=== PATIENT | female | born 1940 | race Caucasian/White ===

== ENCOUNTER 2016-12-17 09:58 | Emergency (ER) | payer MEDICARE, OTHER ==
--- NOTE | 2016-12-17 11:02 | EDM.PDOC ---
[id number]: CHEST PAIN AMB Time Seen by Provider: 12/17/16 10:56 Source of Information: Reports: Patient History Limitations: Reports: No limitations - History of Present Illness INITIAL COMMENTS - FREE TEXT/NARRATIVE: patient complains of gradual onset of dizziness. Onset about 2 days ago. It should be its dizziness 2 pain medication that she started. No vomiting. Decreased appetite because of dizziness. She denies any recent fall. Symptoms are most noticeable with movement. Timing/Duration: Reports: Day(s): Severity: mild Location, General: Reports: head Quality: Reports: Other (generalized discomfort. Main complaint is dizziness) - Related Data Allergies/ADRs: Allergies Allergy/AdvReac Type Severity Reaction Status Date / Time adhesive tape Allergy Cannot Verified 12/17/16 12:37 Remember meperidine HCl [From Demerol] Allergy UNKNOWN Verified 12/17/16 12:37 niacin Allergy UNKNOWN Verified 12/17/16 12:37 peanut Allergy UNKNOWN Verified 12/17/16 12:37 Sulfa (Sulfonamide Allergy Cannot Verified 12/17/16 12:37 Antibiotics) Remember ADHESIVE TAPE Allergy UNKNOWN Uncoded 12/17/16 12:37 SULFA Allergy UNKNOWN Uncoded 12/17/16 12:37 Home Meds: Home Meds Levothyroxine Sodium 1 tab PO DAILY 01/15/14 [History] metFORMIN [Glucophage] 500 mg PO BID 01/15/14 [History] Aspirin [Ecotrin] 81 mg PO DAILY 02/26/14 [History] Lisinopril [Zestril] 20 mg PO DAILY 02/26/14 [History] Loperamide [Imodium] 2 mg PO Q4H PRN #1 box 02/26/14 [Rx] Sertraline [Zoloft] 50 mg PO BEDTIME 02/26/14 [History] Morphine Sulfate [Morphine Sulfate ER] 15 mg PO BID 12/17/16 [History] Vit A/C/E AC/Znox/Cupric Oxide [Eye Vitamin-Minerals Tablet] 1 tab PO ASDIRECTED 12/17/16 [History] oxyCODONE HCl/Acetaminophen [Endocet 10-325 mg Tablet] 1 each PO Q6HR 12/17/16 [ History] Past Medical History HEENT History: Reports: Impaired vision Cardiovascular History: Reports: CAD, Hypertension Other Cardiovascular History: has had strokes Respiratory History: Reports: None Gastrointestinal History: Reports: Chronic diarrhea Genitourinary History: Reports: Urinary incontinence Other Genitourinary History: freguency 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 Musculoskeletal History: Reports: Fracture, Osteoarthritis Other Musculoskeletal History: bursitis Neurological History: Reports: Neuropathy, diabetic Psychiatric History: Reports: Depression Endocrine/Metabolic History: Reports: Hypothyroidism Immunologic History: Reports: None Dermatologic History: Reports: Other (see below) Other Dermatologic History: 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 - Infectious Disease History Infectious Disease History: Reports: Chicken pox, Measles - Past Surgical History GI Surgical History: Reports: Appendectomy Musculoskeletal Surgical History: Reports: Hip replacement (Rt), ORIF Social & Family History - Family History HEENT: Reports: None OBGYN: Reports: None Psychiatric: Reports: None Endocrine/Metabolic: Reports: Diabetes, type II Other Oncologic Family History: unsure of type - Tobacco Use Smoking Status *Q: Former Smoker Years of Tobacco use: 18 Packs/Tins Daily: 3 Used Tobacco, but Quit: Yes Month Tobacco Last Used: 1 Second Hand Smoke Exposure: No - Caffeine Use Caffeine Use: Reports: Coffee - Alcohol Use Days Per Week of Alcohol Use: 0 - Recreational Drug Use Recreational Drug Use: No - Living Situation & Occupation Living situation: Reports: single, , alone Occupation: retired ED ROS GENERAL - Review of Systems Review Of Systems: See Below Constitutional: Reports: malaise, weakness HEENT: Reports: No symptoms Respiratory: Reports: No Symptoms Cardiovascular: Reports: No symptoms Endocrine: Reports: no symptoms GI/Abdominal: Reports: No symptoms : Reports: no symptoms Musculoskeletal: Reports: joint pain, muscle pain Skin: Reports: no symptoms Neurological: Reports: Dizziness, Weakness. Denies: Headache, Numbness, Syncope , Difficulty Walking Psychiatric: Reports: No symptoms Hematologic/Lymphatic: Reports: no symptoms Immunologic: Reports: no symptoms ED EXAM, GENERAL - Physical Exam Exam: See Below Exam Limited By: No limitations General Appearance: alert, WD/WN Eye Exam: bilateral eye: EOMI, normal inspection, PERRL Ears: normal external exam Nose: normal mucosa Throat/Mouth: Other (dry mucous membranes, lips are dry) Head: atraumatic, normocephalic Neck: normal inspection, supple, full range of motion. No: carotid bruit Respiratory/Chest: no respiratory distress, lungs clear, normal breath sounds, chest non-tender Cardiovascular: normal peripheral pulses, no edema, no murmur, tachycardia Peripheral Pulses: 2+: carotid (L), carotid (R), radial (L), radial (R) GI/Abdominal: normal bowel sounds, soft, non tender, no distention Extremities: normal inspection, non-tender, no pedal edema, normal capillary refill Neurological: alert, oriented, CN II-XII intact, normal cognition, no motor/ sensory deficits Skin Exam: Warm, Dry, Intact Course - Vital Signs Last Recorded V/S: Last Vital Signs Temp 97.2 F 12/17/16 10:00 Pulse 94 12/17/16 11:43 Resp 18 12/17/16 11:43 BP 126/60 12/17/16 11:43 Pulse Ox 98 12/17/16 11:43 - Orders/Labs/Meds Orders: Active Orders 24 hr Category Date Time Status EKG Documentation Completion [RC] STAT Care 12/17/16 10:00 Active Labs: Laboratory Tests 12/17/16 12/17/16 12/17/16 Range/Units 11:20 11:20 12:07 WBC 4.6 L (5.0-10.0) 10^3/uL RBC 3.88 L (4.2-5.4) 10^6/uL Hgb 11.5 L (12.0-16.0) g/dL Hct 34.7 L (37.0-47.0) % MCV 89.4 (80-100) fL MCH 29.6 (27.0-34.0) pg MCHC 33.1 (33.0-35.0) g/dL Plt Count 157 (150-450) 10^3/uL Neut % (Auto) 79.4 H (42.2-75.2) % Lymph % (Auto) 11.6 L (20.5-50.1) % [place] % (Auto) 7.7 (2-8) % Eos % (Auto) 0.9 L (1.0-3.0) % Baso % (Auto) 0.4 (0.0-1.0) % Sodium 139 (135-145) mmol/L Potassium 4.1 (3.6-5.0) mmol/L Chloride 99 L (101-111) mmol/L Carbon Dioxide 27.0 (21.0-31.0) mmol/L Anion Gap 17.1 BUN 15 (7-18) mg/dL Creatinine 0.4 L (0.6-1.3) mg/dL Est Cr Clr Drug Dosing 97.43 mL/min Estimated GFR (MDRD) > 60 BUN/Creatinine Ratio 37.50 Glucose 120 H (74-105) mg/dL Calcium 9.4 (8.4-10.2) mg/dl Total Bilirubin 0.8 (0.2-1.0) mg/dL AST 26 (10-42) IU/L ALT 12 (10-60) IU/L Alkaline Phosphatase 61 (42-121) IU/L Troponin I < 0.02 (0.00-0.02) ng/ml Total Protein 6.6 L (6.7-8.2) g/dl Albumin 3.6 (3.2-5.5) g/dl Globulin 3.0 Albumin/Globulin Ratio 1.20 Urine Color Yellow (YELLOW) Urine Appearance Clear (CLEAR) Urine pH 7.0 (5.0-9.0) Ur Specific [place] 1.015 (1.005-1.030) Urine Protein Trace H (NEGATIVE) Urine Glucose (UA) Negative (NEGATIVE) Urine Ketones 15 H (NEGATIVE) Urine Occult Blood Trace-intact H (NEGATIVE) Urine Nitrite Negative (NEGATIVE) Urine Bilirubin Negative (NEGATIVE) Urine Urobilinogen 0.2 (0.2-1.0) mg/dL Ur Leukocyte Esterase Negative (NEGATIVE) Urine RBC 0-5 /HPF Urine WBC 0-5 (0-5/HPF) /HPF Ur Epithelial Cells Few /HPF Urine Bacteria Few (0-FEW/HPF) /HPF Meds: Medications Discontinued Medications Generic Name Dose Route Start Last Admin Trade Name Freq PRN Reason Stop Dose Admin Lactated Ringer's 1,000 mls @ 150 mls/hr 12/17/16 11:15 12/17/16 11:26 Ringers, Lactated IV 150 mls/hr ASDIRECTED JUANA Administration Departure - Departure Time of Disposition: 12:57 Disposition: Home, Self-Care 01 Condition: good Clinical Impression: Dizziness, Arthritis, History of - hypertension, HTN, High Blood Pressure Chronic back pain Qualifiers: Back pain location: thoracic back pain Back pain laterality: midline Qualified Code(s): M54.6 - Pain in thoracic spine Referrals: Maru Bazzi TOOL PROGRAMMER [Primary Care Provider] - Forms: ED Department Discharge Additional Instructions: followup with regular provider in the next 1-2 weeks. Advance diet as tolerated. Maintain daily activity. Call or return to emergency room if any problems questions or concerns - My Orders Last 24 Hours: My Active Orders 12/17/16 10:00 EKG Documentation Completion [RC] STAT - Assessment/Plan Last 24 Hours: My Active Orders 12/17/16 10:00 EKG Documentation Completion [RC] STAT
[2016-12-17] MEDS ORDERED: Lactated Ringers 1,000 ML IV SCH (11:15)
[2016-12-17 11:45] VITALS: BP 126/60
[2016-12-17 11:48] LABS: CHLORIDE,CL 99 mmol/L (101-111); SODIUM,NA 139 mmol/L (135-145)
--- NOTE | 2016-12-17 13:29 | CR ---
CLINICAL HISTORY: 76-year-old female with clinical "dizziness". INTERPRETATION: AP portable chest compromised by extremely poor inspiratory effort but otherwise un remarkable. Normal cardiac silhouette without cephalization of flow, signs of alveolar edema or dependent effusi on. No lung mass, hilar lymphadenopathy or focal lobar pneumonia. (Old healed fracture deformities poste rolateral aspect left seventh rib). No pneumothorax.
--- NOTE | 2016-12-21 14:24 | EKG ---
12/17/2016 - RUBEN PARSON - Twelve-lead EKG shows normal sinus rhythm with sinus tachycardia with a heart rate of 105. No significant ST elevation or ST depression noted on this 12-lead EKG. [facility] /[id number]
== END 2016-12-17 13:25 | disposition home or self-care (01) ==
LOC: DL.ED 09:58
DX: R42 Dizziness and giddiness (principal); I10 Essential (primary) hypertension; M19.90 Unspecified osteoarthritis, unspecified site; M54.6 Pain in thoracic spine; I25.10 Atherosclerotic heart disease of native coronary artery without angina pectoris; E11.40 Type 2 diabetes mellitus with diabetic neuropathy, unspecified; E03.9 Hypothyroidism, unspecified; Z87.891 Personal history of nicotine dependence; Z79.899 Other long term (current) drug therapy; Z79.82 Long term (current) use of aspirin; Z88.2 Allergy status to sulfonamides
CPT/HCPCS: 36415; 71010; 80053; 81001; 84484; 85025; 93005; 96360; 96361; 99285; J7120; 93010; 99282

== ENCOUNTER 2017-02-02 14:41 | Emergency (ER) | payer MEDICARE, OTHER ==
--- NOTE | 2017-02-02 14:50 | EDM.PDOC ---
[id number] Complaint: BY AMBULANCE Time Seen by Provider: 02/02/17 14:49 Source of Information: Reports: Patient, EMS, Old Records, RN, RN Notes Reviewed History Limitations: Reports: No Limitations - History of Present Illness INITIAL COMMENTS - FREE TEXT/NARRATIVE: Complaining of leg pain and bruising sustained from a ground level fall. Reports pain at right hip and left knee. Patient was able to bear weight after the fall, but later the pain increased. Denies head injury or LOC. Severity: Moderate Improves with: Reports: None Worsens with: Reports: None Associated Symptoms: Reports: No Other Symptoms - Related Data Allergies Allergy/AdvReac Type Severity Reaction Status Date / Time adhesive tape Allergy Cannot Verified 12/17/16 12:37 Remember meperidine HCl [From Demerol] Allergy UNKNOWN Verified 12/17/16 12:37 niacin Allergy UNKNOWN Verified 12/17/16 12:37 peanut Allergy UNKNOWN Verified 12/17/16 12:37 Sulfa (Sulfonamide Allergy Cannot Verified 12/17/16 12:37 Antibiotics) Remember ADHESIVE TAPE Allergy UNKNOWN Uncoded 12/17/16 12:37 SULFA Allergy UNKNOWN Uncoded 12/17/16 12:37 Home Meds: Home Meds Levothyroxine Sodium 1 tab PO DAILY 01/15/14 [History] metFORMIN [Glucophage] 500 mg PO BID 01/15/14 [History] Aspirin [Ecotrin] 81 mg PO DAILY 02/26/14 [History] Lisinopril [Zestril] 20 mg PO DAILY 02/26/14 [History] Loperamide [Imodium] 2 mg PO Q4H PRN #1 box 02/26/14 [Rx] Sertraline [Zoloft] 50 mg PO BEDTIME 02/26/14 [History] Morphine Sulfate [Morphine Sulfate ER] 15 mg PO BID 12/17/16 [History] Vit A/C/E AC/Znox/Cupric Oxide [Eye Vitamin-Minerals Tablet] 1 tab PO ASDIRECTED 12/17/16 [History] oxyCODONE HCl/Acetaminophen [Endocet 10-325 mg Tablet] 1 each PO Q6HR 12/17/16 [ History] Past Medical History HEENT History: Reports: Impaired Vision Cardiovascular History: Reports: CAD, Hypertension Other Cardiovascular History: has had strokes Respiratory History: Reports: None Gastrointestinal History: Reports: Chronic Diarrhea Genitourinary History: Reports: Urinary Incontinence Other Genitourinary History: freguency 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 Musculoskeletal History: Reports: Fracture, Osteoarthritis Other Musculoskeletal History: bursitis Neurological History: Reports: Neuropathy, Diabetic Psychiatric History: Reports: Depression Endocrine/Metabolic History: Reports: Hypothyroidism Immunologic History: Reports: None Dermatologic History: Reports: Other (See Below) Other Dermatologic History: 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 - Infectious Disease History Infectious Disease History: Reports: Chicken Pox, Measles - Past Surgical History HEENT Surgical History: Reports: Cataract Surgery Neurological Surgical History: Reports: Other (See Below) Musculoskeletal Surgical History: Reports: Hip Replacement, ORIF Social & Family History - Family History HEENT: Reports: None OBGYN: Reports: None Psychiatric: Reports: None Endocrine/Metabolic: Reports: Diabetes, type II Other Oncologic Family History: unsure of type - Tobacco Use Smoking Status *Q: Former Smoker Years of Tobacco use: 18 Packs/Tins Daily: 3 Used Tobacco, but Quit: Yes Month Tobacco Last Used: 1 Second Hand Smoke Exposure: No - Caffeine Use Caffeine Use: Reports: Coffee - Alcohol Use Days Per Week of Alcohol Use: 0 - Recreational Drug Use Recreational Drug Use: No - Living Situation & Occupation Living situation: Reports: Single, , Alone Occupation: Retired Review of Systems - Review of Systems Review Of Systems: ROS reveals no pertinent complaints other than HPI. ED EXAM, GENERAL - Physical Exam Exam: See Below Exam Limited By: No Limitations General Appearance: Alert, WD/WN, No Apparent Distress Head: Atraumatic, Normocephalic Neck: Normal Inspection Respiratory/Chest: No Respiratory Distress, Lungs Clear, Normal Breath Sounds, No Accessory Muscle Use, Chest Non-Tender Cardiovascular: Normal Peripheral Pulses, Regular Rate, Rhythm, No Edema, No Gallop, No JVD, No Murmur, No Rub GI/Abdominal: Normal Bowel Sounds, Soft, Non-Tender, No Organomegaly, No Distention, No Abnormal Bruit, No Mass Extremities: Other (tender right hip. Left knee with no visible swelling. Painful ROM at right hip and leftknee. ) Neurological: Alert Psychiatric: Normal Affect, Normal Mood Skin Exam: Other (bruising at right lateral hip.) Course - Orders/Labs/Meds Meds: Medications Discontinued Medications Generic Name Dose Route Start Last Admin Trade Name Freq PRN Reason Stop Dose Admin Oxycodone/Acetaminophen 2 tab 02/02/17 15:45 02/02/17 15:55 Percocet 325-5 Mg PO 02/02/17 15:46 2 tab ONETIME ONE Administration - Radiology Interpretation Free Text/Narrative:: X-ray of left knee: Per rad report reveals no acute fracture or dislocation left knee. No foreign bodies. Hip and pelvis right: Per rad report reveals total orthopedic hip replacement ( pseudoacetabulum on the right) without sign of fracture or dislocation. Levorotatory lumbar scoliosis. Symmetric spacing SI and contralateral left hip joints. Departure - Departure Time of Disposition: 16:50 Disposition: Home, Self-Care 01 Condition: fair Clinical Impression: Contusion of right hip Qualifiers: Encounter type: initial encounter Qualified Code(s): S70.01XA - Contusion of right hip, initial encounter Sprain of right knee Qualifiers: Encounter type: initial encounter Involved ligament of knee: unspecified ligament Qualified Code(s): S83.91XA - Sprain of unspecified site of right knee , initial encounter Osteoarthritis of left knee Qualifiers: Osteoarthritis type: post-traumatic Qualified Code(s): M17.32 - Unilateral post -traumatic osteoarthritis, left knee Fall at home Qualifiers: Encounter type: initial encounter Qualified Code(s): W19.XXXA - Unspecified fall, initial encounter - Discharge Information Instructions: Knee Sprain, [id number], Contusion, [id number] Forms: ED Department Discharge Additional Instructions: Take your home pain medications as prescribed. Activity as tolerated. Use your walker. Follow up with your primary doctor next week if not improving.
--- NOTE | 2017-02-02 15:37 | CR ---
Clinical history: 76-year-old female right hip pain associated with fall. Interpretation: AP pelvis/hips and frog lateral view of the right hip confirm total orthopedic hip replacement (pseu doacetabulum on the right) without sign of fracture or dislocation. Levorotatory lumbar scoliosis. S ymmetric spacing SI and contralateral left hip joints.
--- NOTE | 2017-02-02 15:44 | CR ---
CLINICAL HISTORY: 76-year-old female injured left knee (fall). INTERPRETATION: Abnormal. Large suprapatellar bursal effusion on the left with underlying signs of chronic severe arthritic de structive changes (primarily involving the lateral joint space). Dense reactive sclerosis, joint spa ce loss and hypertrophic spur formation. No acute fracture or dislocation left knee. No foreign bodies.
[2017-02-02] MEDS ORDERED: Acetaminophen/oxyCODONE 325-5 MG Tab PO ONE (15:45)
== END 2017-02-02 17:04 | disposition home or self-care (01) ==
LOC: DL.ED 14:41
DX: S83.91XA Sprain of unspecified site of right knee, initial encounter (principal); M17.32 Unilateral post-traumatic osteoarthritis, left knee; S70.01XA Contusion of right hip, initial encounter; I25.10 Atherosclerotic heart disease of native coronary artery without angina pectoris; I10 Essential (primary) hypertension; F32.9 Major depressive disorder, single episode, unspecified; E03.9 Hypothyroidism, unspecified; E11.40 Type 2 diabetes mellitus with diabetic neuropathy, unspecified; H54.7 Unspecified visual loss; Z91.010 Allergy to peanuts; Z79.899 Other long term (current) drug therapy; Z79.84 Long term (current) use of oral hypoglycemic drugs; Z98.49 Cataract extraction status, unspecified eye; Z87.891 Personal history of nicotine dependence; W19.XXXA Unspecified fall, initial encounter; Z96.649 Presence of unspecified artificial hip joint; Z88.2 Allergy status to sulfonamides; Z88.8 Allergy status to other drugs, medicaments and biological substances
CPT/HCPCS: 73502; 73562; 99284; A9270; 99283

== ENCOUNTER 2017-06-27 10:14 | Emergency (ER) | payer MEDICARE, OTHER ==
--- NOTE | 2017-06-27 10:29 | EDM.PDOC ---
ED HPI GENERAL MEDICAL PROBLEM - General Chief Complaint: General Stated Complaint: IN BY AMBULANCE Time Seen by Provider: 06/27/17 10:28 Source of Information: Reports: Patient History Limitations: Reports: No Limitations - History of Present Illness INITIAL COMMENTS - FREE TEXT/NARRATIVE: 77 yo white female c/o right hip pain and generalized arthritis pain( shoulders ) after fall. PMHx Arthritis Hip DJD and PSHx. Right hip replacement Onset: Today Onset Date: 06/27/17 Onset Time: 07:00 Duration: Hour(s): Location: Reports: Upper Extremity, Left, Upper Extremity, Right, Lower Extremity, Right Quality: Reports: Ache Severity: Moderate Improves with: Reports: Rest Worsens with: Reports: Movement Context: Reports: Activity Associated Symptoms: Reports: No Other Symptoms Right Hip Pain Score (Numeric/FACES): 10 - Related Data Allergies Allergy/AdvReac Type Severity Reaction Status Date / Time adhesive tape Allergy Cannot Verified 12/17/16 12:37 Remember meperidine HCl [From Demerol] Allergy UNKNOWN Verified 12/17/16 12:37 niacin Allergy UNKNOWN Verified 12/17/16 12:37 peanut Allergy UNKNOWN Verified 12/17/16 12:37 Sulfa (Sulfonamide Allergy Cannot Verified 12/17/16 12:37 Antibiotics) Remember ADHESIVE TAPE Allergy UNKNOWN Uncoded 12/17/16 12:37 SULFA Allergy UNKNOWN Uncoded 12/17/16 12:37 Home Meds: Home Meds Levothyroxine Sodium 1 tab PO DAILY 01/15/14 [History] metFORMIN [Glucophage] 500 mg PO BID 01/15/14 [History] Aspirin [Ecotrin] 325 mg PO DAILY 02/26/14 [History] Lisinopril [Zestril] 20 mg PO DAILY 02/26/14 [History] Loperamide [Imodium] 2 mg PO Q4H PRN #1 box 02/26/14 [Rx] Sertraline [Zoloft] 100 mg PO BEDTIME 02/26/14 [History] Morphine Sulfate [Morphine Sulfate ER] 20 mg PO BID 12/17/16 [History] Vit A/C/E AC/Znox/Cupric Oxide [Eye Vitamin-Minerals Tablet] 1 tab PO ASDIRECTED 12/17/16 [History] oxyCODONE HCl/Acetaminophen [Endocet 10-325 mg Tablet] 1 each PO Q6HR 12/17/16 [ History] Ca/D3/Mag#11/Zinc/Fpga Engineer/Gene/Bor [Caltrate 600+D Plus Tablet] 1 tab PO DAILY 06/27 [History] Past Medical History HEENT History: Reports: Impaired Vision Cardiovascular History: Reports: CAD, Hypertension Other Cardiovascular History: has had strokes Respiratory History: Reports: None Gastrointestinal History: Reports: Chronic Diarrhea Genitourinary History: Reports: Urinary Incontinence Other Genitourinary History: freguency 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 Musculoskeletal History: Reports: Fracture, Osteoarthritis Other Musculoskeletal History: bursitis Neurological History: Reports: Neuropathy, Diabetic Psychiatric History: Reports: Depression Endocrine/Metabolic History: Reports: Hypothyroidism Hematologic History: Reports: None Immunologic History: Reports: None Oncologic (Cancer) History: Reports: None Dermatologic History: Reports: Other (See Below) Other Dermatologic History: 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 - Infectious Disease History Infectious Disease History: Reports: Chicken Pox, Measles - Past Surgical History HEENT Surgical History: Reports: Cataract Surgery Neurological Surgical History: Reports: Other (See Below) Musculoskeletal Surgical History: Reports: Hip Replacement, ORIF Social & Family History - Family History HEENT: Reports: None OBGYN: Reports: None Psychiatric: Reports: None Endocrine/Metabolic: Reports: Diabetes, type II Other Oncologic Family History: unsure of type - Tobacco Use Smoking Status *Q: Former Smoker Years of Tobacco use: 18 Packs/Tins Daily: 3 Used Tobacco, but Quit: Yes Month Tobacco Last Used: 1 Second Hand Smoke Exposure: No - Caffeine Use Caffeine Use: Reports: Coffee - Alcohol Use Days Per Week of Alcohol Use: 0 - Recreational Drug Use Recreational Drug Use: No - Living Situation & Occupation Living situation: Reports: Single, , Alone Occupation: Retired ED ROS GENERAL - Review of Systems Review Of Systems: See Below Constitutional: Reports: No Symptoms HEENT: Reports: No Symptoms Respiratory: Reports: No Symptoms Cardiovascular: Reports: No Symptoms Endocrine: Reports: No Symptoms GI/Abdominal: Reports: No Symptoms : Reports: No Symptoms Musculoskeletal: Reports: Joint Pain (right hip and bilat. shoulders) Skin: Reports: No Symptoms Neurological: Reports: No Symptoms Psychiatric: Reports: No Symptoms Hematologic/Lymphatic: Reports: No Symptoms Immunologic: Reports: No Symptoms ED EXAM, GENERAL - Physical Exam Exam: See Below Exam Limited By: No Limitations General Appearance: Alert, No Apparent Distress Eye Exam: Bilateral Eye: PERRL Ears: Normal External Exam Nose: Normal Inspection Throat/Mouth: Normal Inspection Head: Atraumatic, Normocephalic Neck: Normal Inspection, Supple, Non-Tender Respiratory/Chest: No Respiratory Distress, Lungs Clear Cardiovascular: Normal Peripheral Pulses, Regular Rate, Rhythm Peripheral Pulses: 2+: Dorsalis Pedis (L), Dorsalis Pedis (R) GI/Abdominal: Normal Bowel Sounds Back Exam: Normal Inspection Extremities: Normal Inspection, Limited Range of Motion Neurological: Alert, Oriented, CN II-XII Intact Psychiatric: Normal Affect Skin Exam: Warm, Dry, Intact Lymphatic: No Adenopathy Course - Vital Signs Last Recorded V/S: Last Vital Signs Temp 36.2 C 06/27/17 10:15 Pulse 88 06/27/17 10:15 Resp 16 06/27/17 10:15 BP 160/76 H 06/27/17 10:15 Pulse Ox 100 06/27/17 10:15 - Orders/Labs/Meds Orders: Active Orders 24 hr Category Date Time Status Sodium Chloride 0.9% [Normal Saline] 500 ml Med 06/27/17 10:45 Active IV ASDIRECTED Medication Orders Sodium Chloride (Normal Saline) 500 mls @ 100 mls/hr IV ASDIRECTED JUANA Last Admin: 06/27/17 11:45 Dose: 100 mls/hr Labs: Laboratory Tests 06/27/17 06/27/17 06/27/17 Range/Units 10:45 10:45 11:22 WBC 3.5 L (5.0-10.0) 10^3/uL RBC 3.86 L (4.2-5.4) 10^6/uL Hgb 11.1 L (12.0-16.0) g/dL Hct 34.5 L (37.0-47.0) % MCV 89.4 (80-100) fL MCH 28.8 (27.0-34.0) pg MCHC 32.2 L (33.0-35.0) g/dL Plt Count 144 L (150-450) 10^3/uL Neut % (Auto) 65.6 (42.2-75.2) % Lymph % (Auto) 22.3 (20.5-50.1) % [facility] % (Auto) 9.5 H (2-8) % Eos % (Auto) 2.3 (1.0-3.0) % Baso % (Auto) 0.3 (0.0-1.0) % Sodium 139 (135-145) mmol/L Potassium 3.8 (3.6-5.0) mmol/L Chloride 98 L (101-111) mmol/L Carbon Dioxide 29.0 (21.0-31.0) mmol/L Anion Gap 15.8 BUN 13 (7-18) mg/dL Creatinine 0.3 L (0.6-1.3) mg/dL Est Cr Clr Drug Dosing TNP Estimated GFR (MDRD) > 60 BUN/Creatinine Ratio 43.33 Glucose 111 H (74-105) mg/dL Calcium 9.4 (8.4-10.2) mg/dl Total Bilirubin 0.6 (0.2-1.0) mg/dL AST 30 (10-42) IU/L ALT 13 (10-60) IU/L Alkaline Phosphatase 66 (42-121) IU/L Total Protein 6.8 (6.7-8.2) g/dl Albumin 3.8 (3.2-5.5) g/dl Globulin 3.0 Albumin/Globulin Ratio 1.27 Urine Color Yellow (YELLOW) Urine Appearance Clear (CLEAR) Urine pH 6.5 (5.0-9.0) Ur Specific [place] 1.015 (1.005-1.030) Urine Protein Negative (NEGATIVE) Urine Glucose (UA) Negative (NEGATIVE) Urine Ketones Negative (NEGATIVE) Urine Occult Blood Negative (NEGATIVE) Urine Nitrite Negative (NEGATIVE) Urine Bilirubin Negative (NEGATIVE) Urine Urobilinogen 0.2 (0.2-1.0) mg/dL Ur Leukocyte Esterase Negative (NEGATIVE) Urine RBC 0-5 /HPF Urine WBC 0-5 (0-5/HPF) /HPF Ur Epithelial Cells Rare /HPF Urine Bacteria Rare (0-FEW/HPF) /HPF Meds: Medications Generic Name Dose Route Start Last Admin Trade Name Freq PRN Reason Stop Dose Admin Sodium Chloride 500 mls @ 100 mls/hr 06/27/17 10:45 06/27/17 11:45 Normal Saline IV 100 mls/hr ASDIRECTED JUANA Administration Discontinued Medications Generic Name Dose Route Start Last Admin Trade Name Freq PRN Reason Stop Dose Admin Ondansetron HCl 4 mg 06/27/17 10:36 06/27/17 11:45 Zofran IV 06/27/17 10:37 4 mg ONETIME ONE Administration Departure - Departure Time of Disposition: 12:57 Disposition: Home, Self-Care 01 Condition: Good Clinical Impression: Arthritis Fall Qualifiers: Encounter type: initial encounter Qualified Code(s): W19.XXXA - Unspecified fall, initial encounter Contusion of hip, right Qualifiers: Encounter type: initial encounter Qualified Code(s): S70.01XA - Contusion of right hip, initial encounter - Discharge Information Instructions: Hip Pain Forms: ED Department Discharge Additional Instructions: Rest Increase intake of fluids Water / Juice Take Medication as prescribed by your Doctor F/U w/ PCP - My Orders Last 24 Hours: My Active Orders 06/27/17 10:45 Sodium Chloride 0.9% [Normal Saline] 500 ml IV ASDIRECTED - Assessment/Plan Last 24 Hours: My Active Orders 06/27/17 10:45 Sodium Chloride 0.9% [Normal Saline] 500 ml IV ASDIRECTED
[2017-06-27] MEDS ORDERED: Ondansetron 4 MG/2 ML SDV IV ONE (10:36)
[2017-06-27] MEDS ORDERED: Sodium Chloride 0.9% 500 ML IV SCH (10:45)
[2017-06-27 11:11] LABS: CHLORIDE,CL 98 mmol/L (101-111); SODIUM,NA 139 mmol/L (135-145)
[2017-06-27 11:13] VITALS: BP 160/76
--- NOTE | 2017-06-27 11:58 | CR ---
CLINICAL HISTORY: 77-year-old female with pain right hip. INTERPRETATION: Prominent lucent interface between the methylmethacrylate seating the femoral component of total righ t hip prosthesis and its surrounding bony host (proximal right femur) suggest "loosening" but... NOTE... this appearance was evident on earlier exam 02 February 2017. Clinical? Dense reactive sclerosis around the acetabulum and large femoral head of total right hip prosthesis a lso evident back in January. Juxta-articular calcifications in the soft tissues right hip. No new signs of right hip fracture or d islocation.
== END 2017-06-27 13:34 | disposition home or self-care (01) ==
LOC: DL.ED 10:14
DX: S70.01XA Contusion of right hip, initial encounter (principal); M19.90 Unspecified osteoarthritis, unspecified site; I10 Essential (primary) hypertension; I25.10 Atherosclerotic heart disease of native coronary artery without angina pectoris; F32.9 Major depressive disorder, single episode, unspecified; E11.40 Type 2 diabetes mellitus with diabetic neuropathy, unspecified; E03.9 Hypothyroidism, unspecified; Z96.641 Presence of right artificial hip joint; Z87.891 Personal history of nicotine dependence; Z79.82 Long term (current) use of aspirin; Z79.899 Other long term (current) drug therapy; Z88.5 Allergy status to narcotic agent; Z88.8 Allergy status to other drugs, medicaments and biological substances; Z91.048 Other nonmedicinal substance allergy status; Z91.018 Allergy to other foods; Z88.2 Allergy status to sulfonamides; W19.XXXA Unspecified fall, initial encounter
CPT/HCPCS: 36415; 73502; 80053; 81001; 85025; 96361; 96374; 99284; J2405; J7040

== ENCOUNTER 2017-11-14 12:10 | Emergency (ER) | payer MEDICARE, OTHER ==
[2017-11-14 11:47] VITALS: BP 107/85
[2017-11-14 12:04] LABS: ANION GAP 11.3; CHLORIDE,CL 99 mmol/L (101-111); SODIUM,NA 136 mmol/L (135-145)
[~2017-11-14 12:10] MED LIST: Ondansetron 4 MG/2 ML SDV IV ONE
--- NOTE | 2017-11-14 12:11 | EDM.PDOC ---
ED HPI GENERAL MEDICAL PROBLEM - General Chief Complaint: General Stated Complaint: IN BY AMBULANCE Time Seen by Provider: 11/14/17 11:45 Source of Information: Reports: Patient History Limitations: Reports: No Limitations - History of Present Illness INITIAL COMMENTS - FREE TEXT/NARRATIVE: This 77 yo female patient was brought to the ED by [facility] due to a ground level fall. The patient reports that she fell this morning at about 1030 onto her right side. The patient reports pain in her right elbow, right shoulder and right hip. The patient also reports some diffuse chest pain not related to her fall. The patient reports she had diarrhea last night and has been feeling nauseated all day. The patient continues to report nausea and diffuse pain. Onset: Today Onset Date: 11/14/17 Onset Time: 10:30 Duration: Constant Location: Reports: Chest, Upper Extremity, Right, Lower Extremity, Right Quality: Reports: Ache, Dull Severity: Moderate Improves with: Reports: None Worsens with: Reports: None Associated Symptoms: Reports: Chest Pain, Other Right Elbow Pain Score (Numeric/FACES): 6 Right Hip Pain Score (Numeric/FACES): 6 - Related Data Allergies Allergy/AdvReac Type Severity Reaction Status Date / Time adhesive tape Allergy Cannot Verified 11/14/17 11:47 Remember meperidine HCl [From Demerol] Allergy UNKNOWN Verified 11/14/17 11:47 niacin Allergy UNKNOWN Verified 11/14/17 11:47 peanut Allergy UNKNOWN Verified 11/14/17 11:47 Sulfa (Sulfonamide Allergy Cannot Verified 11/14/17 11:47 Antibiotics) Remember ADHESIVE TAPE Allergy UNKNOWN Uncoded 12/17/16 12:37 SULFA Allergy UNKNOWN Uncoded 12/17/16 12:37 Home Meds: Home Meds Levothyroxine Sodium 1 tab PO DAILY 01/15/14 [History] metFORMIN [Glucophage] 500 mg PO BID 01/15/14 [History] Aspirin [Ecotrin] 325 mg PO DAILY 02/26/14 [History] Lisinopril [Zestril] 20 mg PO DAILY 02/26/14 [History] Loperamide [Imodium] 2 mg PO Q4H PRN #1 box 02/26/14 [Rx] Sertraline [Zoloft] 100 mg PO BEDTIME 02/26/14 [History] Morphine Sulfate [Morphine Sulfate ER] 20 mg PO BID 12/17/16 [History] Vit A/C/E AC/Znox/Cupric Oxide [Eye Vitamin-Minerals Tablet] 1 tab PO ASDIRECTED 12/17/16 [History] oxyCODONE HCl/Acetaminophen [Endocet 10-325 mg Tablet] 1 each PO Q6HR 12/17/16 [ History] Ca/D3/Mag#11/Zinc/Production Team Advisor/Gene/Bor [Caltrate 600+D Plus Tablet] 1 tab PO DAILY 06/27 [History] Past Medical History HEENT History: Reports: Impaired Vision Cardiovascular History: Reports: CAD, Hypertension Other Cardiovascular History: has had strokes Respiratory History: Reports: None Gastrointestinal History: Reports: Chronic Diarrhea Genitourinary History: Reports: Urinary Incontinence Other Genitourinary History: freguency IMPREGNATOR HELPER History: Reports: None Musculoskeletal History: Reports: Fracture, Osteoarthritis Other Musculoskeletal History: bursitis Neurological History: Reports: Neuropathy, Diabetic Psychiatric History: Reports: Depression Endocrine/Metabolic History: Reports: Hypothyroidism Hematologic History: Reports: None Immunologic History: Reports: None Oncologic (Cancer) History: Reports: None Dermatologic History: Reports: Other (See Below) Other Dermatologic History: 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 - Infectious Disease History Infectious Disease History: Reports: Chicken Pox, Measles - Past Surgical History Head Surgeries/Procedures: Reports: None HEENT Surgical History: Reports: Cataract Surgery Neurological Surgical History: Reports: Other (See Below) Musculoskeletal Surgical History: Reports: Hip Replacement, ORIF Social & Family History - Family History HEENT: Reports: None OBGYN: Reports: None Psychiatric: Reports: None Endocrine/Metabolic: Reports: Diabetes, type II Other Oncologic Family History: unsure of type - Tobacco Use Smoking Status *Q: Former Smoker Years of Tobacco use: 18 Packs/Tins Daily: 3 Used Tobacco, but Quit: Yes Month/Year Tobacco Last Used: 1 Second Hand Smoke Exposure: No - Caffeine Use Caffeine Use: Reports: Coffee - Alcohol Use Days Per Week of Alcohol Use: 0 - Recreational Drug Use Recreational Drug Use: No - Living Situation & Occupation Living situation: Reports: Single, , Alone Occupation: Retired ED ROS GENERAL - Review of Systems Review Of Systems: ROS reveals no pertinent complaints other than HPI. ED EXAM, GENERAL - Physical Exam Exam: See Below Exam Limited By: No Limitations General Appearance: Alert, WD/WN, Moderate Distress, Thin Eye Exam: Bilateral Eye: EOMI, Normal Inspection, PERRL Ears: Normal External Exam, Normal Canal, Hearing Grossly Normal, Normal TMs Nose: Normal Inspection, Normal Mucosa, No Blood Throat/Mouth: Normal Inspection, Normal Lips, Normal Teeth, Normal Gums, Normal Oropharynx, Normal Voice, No Airway Compromise Head: Atraumatic, Normocephalic Neck: Normal Inspection, Supple, Non-Tender, Full Range of Motion Respiratory/Chest: No Respiratory Distress, Lungs Clear, Normal Breath Sounds, No Accessory Muscle Use, Chest Non-Tender Cardiovascular: Normal Peripheral Pulses, Regular Rate, Rhythm, No Edema, No Gallop, No JVD, No Murmur, No Rub GI/Abdominal: Normal Bowel Sounds, Soft, Non-Tender, No Organomegaly, No Distention, No Abnormal Bruit, No Mass (Female) Exam: Deferred Rectal (Female) Exam: Deferred Back Exam: Other (kyphosis, ) Extremities: Arm Pain (right shoulder and right elbow), Leg Pain (right hip) Neurological: Alert, Oriented, CN II-XII Intact, Normal Cognition Psychiatric: Normal Affect, Normal Mood Skin Exam: Warm, Intact, No Rash, Other (bruising on right elbow and right forearm) Lymphatic: No Adenopathy Course - Vital Signs Last Recorded V/S: Last Vital Signs Temp 36.6 C 11/14/17 11:38 Pulse 68 11/14/17 11:38 Resp 20 11/14/17 11:38 BP 107/85 11/14/17 11:38 Pulse Ox 100 11/14/17 11:38 Orthostatic Blood Pressure [ 126/56 Standing] Orthostatic Blood Pressure [ 118/48 Sitting] Orthostatic Blood Pressure [ 114/44 Supine] - Orders/Labs/Meds Orders: Active Orders 24 hr Category Date Time Status EKG Documentation Completion [RC] URGENT Care 11/14/17 12:03 Active UA W/MICROSCOPIC [URIN] Stat Lab 11/14/17 11:38 Ordered Labs: Laboratory Tests 11/14/17 11/14/17 11/14/17 Range/Units 11:35 11:45 11:45 WBC 4.2 L (5.0-10.0) 10^3/uL RBC 3.73 L (4.2-5.4) 10^6/uL Hgb 10.8 L (12.0-16.0) g/dL Hct 33.2 L (37.0-47.0) % MCV 89.0 (80-100) fL MCH 29.0 (27.0-34.0) pg MCHC 32.5 L (33.0-35.0) g/dL Plt Count 142 L (150-450) 10^3/uL Neut % (Auto) 71.0 (42.2-75.2) % Lymph % (Auto) 16.3 L (20.5-50.1) % Dare % (Auto) 9.9 H (2-8) % Eos % (Auto) 2.8 (1.0-3.0) % Baso % (Auto) 0.0 (0.0-1.0) % ESR (0-20) mm/hr Sodium 136 (135-145) mmol/L Potassium 4.3 (3.6-5.0) mmol/L Chloride 99 L (101-111) mmol/L Carbon Dioxide 30.0 (21.0-31.0) mmol/L Anion Gap 11.3 BUN 15 (7-18) mg/dL Creatinine 0.4 L (0.6-1.3) mg/dL Est Cr Clr Drug Dosing 95.88 mL/min Estimated GFR (MDRD) > 60 BUN/Creatinine Ratio 37.50 Glucose 110 H (74-105) mg/dL Calcium 9.0 (8.4-10.2) mg/dl Total Bilirubin 0.7 (0.2-1.0) mg/dL AST 25 (10-42) IU/L ALT 15 (10-60) IU/L Alkaline Phosphatase 88 (42-121) IU/L Creatine Kinase 60 (26-174) IU/L Troponin I (0.00-0.02) ng/ml C-Reactive Protein (0.0-1.3) mg/dL Total Protein 6.6 L (6.7-8.2) g/dl Albumin 3.6 (3.2-5.5) g/dl Globulin 3.0 Albumin/Globulin Ratio 1.20 Urine Color Light yellow (YELLOW) Urine Appearance Clear (CLEAR) Urine pH 7.0 (5.0-9.0) Ur Specific [place] 1.015 (1.005-1.030) Urine Protein Negative (NEGATIVE) Urine Glucose (UA) Negative (NEGATIVE) Urine Ketones Negative (NEGATIVE) Urine Occult Blood Negative (NEGATIVE) Urine Nitrite Negative (NEGATIVE) Urine Bilirubin Negative (NEGATIVE) Urine Urobilinogen 0.2 (0.2-1.0) mg/dL Ur Leukocyte Esterase Negative (NEGATIVE) Urine RBC 0-5 /HPF Urine WBC 0-5 (0-5/HPF) /HPF Ur Epithelial Cells Rare /HPF Amorphous Sediment Rare (0/HPF) /HPF Urine Bacteria Rare (0-FEW/HPF) /HPF 11/14/17 11/14/17 11/14/17 Range/Units 11:45 11:45 11:45 WBC (5.0-10.0) 10^3/uL RBC (4.2-5.4) 10^6/uL Hgb (12.0-16.0) g/dL Hct (37.0-47.0) % MCV (80-100) fL MCH (27.0-34.0) pg MCHC (33.0-35.0) g/dL Plt Count (150-450) 10^3/uL Neut % (Auto) (42.2-75.2) % Lymph % (Auto) (20.5-50.1) % Dare % (Auto) (2-8) % Eos % (Auto) (1.0-3.0) % Baso % (Auto) (0.0-1.0) % ESR 27 H (0-20) mm/hr Sodium (135-145) mmol/L Potassium (3.6-5.0) mmol/L Chloride (101-111) mmol/L Carbon Dioxide (21.0-31.0) mmol/L Anion Gap BUN (7-18) mg/dL Creatinine (0.6-1.3) mg/dL Est Cr Clr Drug Dosing mL/min Estimated GFR (MDRD) BUN/Creatinine Ratio Glucose (74-105) mg/dL Calcium (8.4-10.2) mg/dl Total Bilirubin (0.2-1.0) mg/dL AST (10-42) IU/L ALT (10-60) IU/L Alkaline Phosphatase (42-121) IU/L Creatine Kinase (26-174) IU/L Troponin I < 0.02 (0.00-0.02) ng/ml C-Reactive Protein 0.7 (0.0-1.3) mg/dL Total Protein (6.7-8.2) g/dl Albumin (3.2-5.5) g/dl Globulin Albumin/Globulin Ratio Urine Color (YELLOW) Urine Appearance (CLEAR) Urine pH (5.0-9.0) Ur Specific [place] (1.005-1.030) Urine Protein (NEGATIVE) Urine Glucose (UA) (NEGATIVE) Urine Ketones (NEGATIVE) Urine Occult Blood (NEGATIVE) Urine Nitrite (NEGATIVE) Urine Bilirubin (NEGATIVE) Urine Urobilinogen (0.2-1.0) mg/dL Ur Leukocyte Esterase (NEGATIVE) Urine RBC /HPF Urine WBC (0-5/HPF) /HPF Ur Epithelial Cells /HPF Amorphous Sediment (0/HPF) /HPF Urine Bacteria (0-FEW/HPF) /HPF Meds: Medications Discontinued Medications Generic Name Dose Route Start Last Admin Trade Name Freq PRN Reason Stop Dose Admin Morphine Sulfate 2 mg 11/14/17 12:20 11/14/17 12:24 Morphine IVPUSH 11/14/17 12:21 2 mg ONETIME ONE Administration Ondansetron HCl 4 mg 11/14/17 11:58 11/14/17 12:09 Zofran IV 11/14/17 11:59 4 mg ONETIME ONE Administration Departure - Departure Time of Disposition: 14:15 Disposition: Home, Self-Care 01 Condition: Fair Clinical Impression: Fall Qualifiers: Encounter type: initial encounter Qualified Code(s): W19.XXXA - Unspecified fall, initial encounter Contusion of right elbow Qualifiers: Encounter type: initial encounter Qualified Code(s): S50.01XA - Contusion of right elbow, initial encounter - Discharge Information Forms: ED Department Discharge Care Plan Goals: The patient and family were advised of the examination, lab, EKG and x-ray results during the visit. The patient was encouraged to use her walker to help stabilize her as she ambulates. If the patient has any additional symptoms or concerns, the patient should follow-up with her primary care facility or return to the emergency department. - My Orders Last 24 Hours: My Active Orders 11/14/17 11:38 UA W/MICROSCOPIC [URIN] Stat 11/14/17 12:03 EKG Documentation Completion [RC] URGENT - Assessment/Plan Last 24 Hours: My Active Orders 11/14/17 11:38 UA W/MICROSCOPIC [URIN] Stat 11/14/17 12:03 EKG Documentation Completion [RC] URGENT
[2017-11-14] MEDS ORDERED: Morphine 2 MG/ML Syringe IVPUSH ONE (12:20)
--- NOTE | 2017-11-14 13:01 | CR ---
Clinical history: 77-year-old female injured in ground-level fall was had previous total right hip re placement. Interpretation: Some patient rotation however no acute new pelvic or either hip fracture/dislocation. No new evidence of "loosening" total right hip prosthesis since previous exam 27 June 2017. Chronic arthritic changes lower lumbar spine.
--- NOTE | 2017-11-14 13:03 | CR ---
Clinical history: 77-year-old female injured right elbow ground-level fall. Interpretation: No sign of joint effusion, acute right elbow fracture or dislocation. No appreciable arthritic degenerative changes this elderly female with generally good bone mineral de nsity.
--- NOTE | 2017-11-14 13:03 | CR ---
Clinical history: 77-year-old female injured in ground-level fall. Interpretation: 3 views right shoulder confirm chronic severe arthritic degenerative changes right sh oulder joint associated deformity of the humeral head. No sign of acute right shoulder fracture, acromioclavicular separation or glenohumeral dislocation. Ipsilateral right lung apex is clear.
--- NOTE | 2017-11-16 06:29 | EKG ---
11/14/2017 - RUBEN PARSON - PROCEDURE: Twelve-lead EKG. FINDINGS: This 12-lead EKG shows a normal sinus rhythm with a ventricular rate of 77. Normal axis. First-degree AV block. No acute ST-T wave changes. Poor R-wave progression to V6. Q-waves seen in the inferior leads consistent with possible previous inferior infarction. [facility] /[id number]
== END 2017-11-14 14:26 | disposition home or self-care (01) ==
LOC: DL.ED 12:10
DX: S50.01XA Contusion of right elbow, initial encounter (principal); I10 Essential (primary) hypertension; E11.40 Type 2 diabetes mellitus with diabetic neuropathy, unspecified; E03.9 Hypothyroidism, unspecified; Z88.2 Allergy status to sulfonamides; Z88.8 Allergy status to other drugs, medicaments and biological substances; Z91.010 Allergy to peanuts; Z79.899 Other long term (current) drug therapy; Z87.891 Personal history of nicotine dependence; W19.XXXA Unspecified fall, initial encounter
CPT/HCPCS: 36415; 73030; 73070; 73502; 80053; 81001; 82272; 82550; 84484; 85025; 85651; 86140; 93005; 93010; 96374; 96375; 99285; J2270; J2405; 99284

== ENCOUNTER 2017-12-19 06:41 | Observation (INO) | payer MEDICARE, OTHER ==
[2017-12-19] MEDS ORDERED: Ondansetron 4 MG/2 ML SDV IV ONE (06:58)
--- NOTE | 2017-12-19 07:22 | EDM.PDOC ---
ED HPI GENERAL MEDICAL PROBLEM - General Chief Complaint: General Stated Complaint: ALLERGIC REACTION Time Seen by Provider: 12/19/17 06:50 Source of Information: Reports: Patient History Limitations: Reports: No Limitations - History of Present Illness INITIAL COMMENTS - FREE TEXT/NARRATIVE: This 77 yo female patient was brought to the ED by [facility] due to nausea/diarrhea, abdominal pain and not feeling well for the past 3 days. The patient reports she was seen in the [facility] for a UTI on Tuesday. The patient was started on Macrobid and reports she started to feel nauseated after the 1st dose. The patient reports that she took the medication through the weekend, but has not take a dose yet today. The patient reports that her stomach does not feel well today and she is nauseated. 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: Reports: Other Medication(s) (Macrobid) - Related Data Allergies Allergy/AdvReac Type Severity Reaction Status Date / Time adhesive tape Allergy Cannot Verified 12/19/17 07:15 Remember meperidine HCl [From Demerol] Allergy UNKNOWN Verified 12/19/17 07:15 niacin Allergy UNKNOWN Verified 12/19/17 07:15 peanut Allergy UNKNOWN Verified 12/19/17 07:15 Sulfa (Sulfonamide Allergy Cannot Verified 12/19/17 07:15 Antibiotics) Remember ADHESIVE TAPE Allergy UNKNOWN Uncoded 12/17/16 12:37 SULFA Allergy UNKNOWN Uncoded 12/17/16 12:37 Home Meds: Home Meds Levothyroxine Sodium 1 tab PO DAILY 01/15/14 [History] metFORMIN [Glucophage] 500 mg PO BID 01/15/14 [History] Aspirin [Ecotrin] 325 mg PO DAILY 02/26/14 [History] Lisinopril [Zestril] 20 mg PO DAILY 02/26/14 [History] Loperamide [Imodium] 2 mg PO Q4H PRN #1 box 02/26/14 [Rx] Sertraline [Zoloft] 100 mg PO BEDTIME 02/26/14 [History] Morphine Sulfate [Morphine Sulfate ER] 20 mg PO BID 12/17/16 [History] Vit A/C/E AC/Znox/Cupric Oxide [Eye Vitamin-Minerals Tablet] 1 tab PO ASDIRECTED 12/17/16 [History] oxyCODONE HCl/Acetaminophen [Endocet 10-325 mg Tablet] 1 each PO Q6HR 12/17/16 [ History] Ca/D3/Mag#11/Zinc/Fire Safety Director/Gene/Bor [Caltrate 600+D Plus Tablet] 1 tab PO DAILY 06/27 [History] Nitrofurantoin [place]/Macrocryst [Nitrofurantoin [place]-MCR] 100 mg PO BID 12/19/17 [History] Past Medical History HEENT History: Reports: Impaired Vision Cardiovascular History: Reports: CAD, Hypertension Other Cardiovascular History: has had strokes Respiratory History: Reports: None Gastrointestinal History: Reports: Chronic Diarrhea Genitourinary History: Reports: Urinary Incontinence Other Genitourinary History: freguency CONCESSION ATTENDANT History: Reports: None Musculoskeletal History: Reports: Fracture, Osteoarthritis Other Musculoskeletal History: bursitis Neurological History: Reports: Neuropathy, Diabetic Psychiatric History: Reports: Depression Endocrine/Metabolic History: Reports: Hypothyroidism Hematologic History: Reports: None Immunologic History: Reports: None Oncologic (Cancer) History: Reports: None Dermatologic History: Reports: Other (See Below) Other Dermatologic History: 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 - Infectious Disease History Infectious Disease History: Reports: Chicken Pox, Measles - Past Surgical History Head Surgeries/Procedures: Reports: None HEENT Surgical History: Reports: Cataract Surgery Neurological Surgical History: Reports: Other (See Below) Musculoskeletal Surgical History: Reports: Hip Replacement, ORIF Social & Family History - Family History HEENT: Reports: None OBGYN: Reports: None Psychiatric: Reports: None Endocrine/Metabolic: Reports: Diabetes, type II Other Oncologic Family History: unsure of type - Tobacco Use Smoking Status *Q: Former Smoker Years of Tobacco use: 18 Packs/Tins Daily: 3 Used Tobacco, but Quit: Yes Month/Year Tobacco Last Used: 1 Second Hand Smoke Exposure: No - Caffeine Use Caffeine Use: Reports: Coffee - Alcohol Use Days Per Week of Alcohol Use: 0 - Recreational Drug Use Recreational Drug Use: No - Living Situation & Occupation Living situation: Reports: Single, , Alone Occupation: Retired ED ROS GENERAL - Review of Systems Review Of Systems: ROS reveals no pertinent complaints other than HPI. ED EXAM, GENERAL - Physical Exam Exam: See Below Exam Limited By: No Limitations General Appearance: Alert, WD/WN, Moderate Distress, Thin Eye Exam: Bilateral Eye: EOMI, Normal Inspection, PERRL Ears: Normal External Exam, Other (bilateral hearing aids) Nose: Normal Inspection, Normal Mucosa, No Blood Throat/Mouth: Normal Lips, Normal Teeth, Normal Gums, Normal Oropharynx, Normal Voice, No Airway Compromise, Other (dry) Head: Atraumatic, Normocephalic Neck: Normal Inspection, Supple, Non-Tender, Full Range of Motion Respiratory/Chest: No Respiratory Distress, Lungs Clear, Normal Breath Sounds, No Accessory Muscle Use, Chest Non-Tender Cardiovascular: Normal Peripheral Pulses, Regular Rate, Rhythm, No Edema, No Gallop, No JVD, No Murmur, No Rub GI/Abdominal: Normal Bowel Sounds, Soft, No Organomegaly, No Distention, No Abnormal Bruit, No Mass, Pelvis Stable, Tender (mild generalized) (Female) Exam: Deferred Rectal (Female) Exam: Deferred Back Exam: Normal Inspection, Full Range of Motion, NT Extremities: Normal Inspection, Normal Range of Motion, Non-Tender, Normal Capillary Refill, No Pedal Edema Neurological: Alert, CN II-XII Intact, Normal Cognition Psychiatric: Anxious Skin Exam: Warm, Dry, Intact, Normal Color, No Rash Lymphatic: No Adenopathy Course - Vital Signs Last Recorded V/S: Last Vital Signs Temp 36.4 C 12/19/17 07:00 Pulse 89 12/19/17 07:00 Resp 16 12/19/17 07:00 BP 157/63 H 12/19/17 07:00 Pulse Ox 98 12/19/17 07:00 - Orders/Labs/Meds Orders: Active Orders 24 hr Category Date Time Status CULTURE BLOOD [BC] Stat Lab 12/19/17 06:58 Ordered UA W/MICROSCOPIC [URIN] Stat Lab 12/19/17 06:58 Ordered Sodium Chloride 0.9% @ 125 MLS/HR (1000ml) Med 12/19/17 07:00 Ordered Sodium Chloride 0.9% [Normal Saline] 1,000 ml IV ASDIRECTED Medication Orders Sodium Chloride (Normal Saline) 1,000 mls @ 125 mls/hr IV ASDIRECTED JUANA Last Admin: 12/19/17 07:35 Dose: 125 mls/hr Labs: Laboratory Tests 12/19/17 12/19/17 12/19/17 Range/Units 07:15 07:17 07:17 WBC 5.4 (5.0-10.0) 10^3/uL RBC 3.66 L (4.2-5.4) 10^6/uL Hgb 10.6 L (12.0-16.0) g/dL Hct 32.7 L (37.0-47.0) % MCV 89.3 (80-100) fL MCH 29.0 (27.0-34.0) pg MCHC 32.4 L (33.0-35.0) g/dL Plt Count 123 L (150-450) 10^3/uL Neut % (Auto) 76.8 H (42.2-75.2) % Lymph % (Auto) 5.4 L (20.5-50.1) % [place] % (Auto) 11.5 H (2-8) % Eos % (Auto) 6.1 H (1.0-3.0) % Baso % (Auto) 0.2 (0.0-1.0) % Sodium 135 (135-145) mmol/L Potassium 3.8 (3.6-5.0) mmol/L Chloride 97 L (101-111) mmol/L Carbon Dioxide 30.0 (21.0-31.0) mmol/L Anion Gap 11.8 BUN 9 (7-18) mg/dL Creatinine 0.4 L (0.6-1.3) mg/dL Est Cr Clr Drug Dosing TNP Estimated GFR (MDRD) > 60 BUN/Creatinine Ratio 22.50 Glucose 125 H (74-105) mg/dL Lactic Acid 1.3 (0.5-2.2) mmol/L Calcium 8.7 (8.4-10.2) mg/dl Total Bilirubin 1.0 (0.2-1.0) mg/dL AST 23 (10-42) IU/L ALT 13 (10-60) IU/L Alkaline Phosphatase 79 (42-121) IU/L Total Protein 6.5 L (6.7-8.2) g/dl Albumin 3.4 (3.2-5.5) g/dl Globulin 3.1 Albumin/Globulin Ratio 1.10 Urine Color (YELLOW) Urine Appearance (CLEAR) Urine pH (5.0-9.0) Ur Specific [place] (1.005-1.030) Urine Protein (NEGATIVE) Urine Glucose (UA) (NEGATIVE) Urine Ketones (NEGATIVE) Urine Occult Blood (NEGATIVE) Urine Nitrite (NEGATIVE) Urine Bilirubin (NEGATIVE) Urine Urobilinogen (0.2-1.0) mg/dL Ur Leukocyte Esterase (NEGATIVE) Urine RBC /HPF Urine WBC (0-5/HPF) /HPF Ur Epithelial Cells /HPF Amorphous Sediment (0/HPF) /HPF Urine Bacteria (0-FEW/HPF) /HPF Urine Mucus /LPF 12/19/17 Range/Units 07:25 WBC (5.0-10.0) 10^3/uL RBC (4.2-5.4) 10^6/uL Hgb (12.0-16.0) g/dL Hct (37.0-47.0) % MCV (80-100) fL MCH (27.0-34.0) pg MCHC (33.0-35.0) g/dL Plt Count (150-450) 10^3/uL Neut % (Auto) (42.2-75.2) % Lymph % (Auto) (20.5-50.1) % [place] % (Auto) (2-8) % Eos % (Auto) (1.0-3.0) % Baso % (Auto) (0.0-1.0) % Sodium (135-145) mmol/L Potassium (3.6-5.0) mmol/L Chloride (101-111) mmol/L Carbon Dioxide (21.0-31.0) mmol/L Anion Gap BUN (7-18) mg/dL Creatinine (0.6-1.3) mg/dL Est Cr Clr Drug Dosing Estimated GFR (MDRD) BUN/Creatinine Ratio Glucose (74-105) mg/dL Lactic Acid (0.5-2.2) mmol/L Calcium (8.4-10.2) mg/dl Total Bilirubin (0.2-1.0) mg/dL AST (10-42) IU/L ALT (10-60) IU/L Alkaline Phosphatase (42-121) IU/L Total Protein (6.7-8.2) g/dl Albumin (3.2-5.5) g/dl Globulin Albumin/Globulin Ratio Urine Color Yellow (YELLOW) Urine Appearance Cloudy (CLEAR) Urine pH 7.0 (5.0-9.0) Ur Specific [place] 1.020 (1.005-1.030) Urine Protein Negative (NEGATIVE) Urine Glucose (UA) Negative (NEGATIVE) Urine Ketones Negative (NEGATIVE) Urine Occult Blood Negative (NEGATIVE) Urine Nitrite Negative (NEGATIVE) Urine Bilirubin Negative (NEGATIVE) Urine Urobilinogen 0.2 (0.2-1.0) mg/dL Ur Leukocyte Esterase Small H (NEGATIVE) Urine RBC 0-5 /HPF Urine WBC 20-30 H (0-5/HPF) /HPF Ur Epithelial Cells Few /HPF Amorphous Sediment Rare (0/HPF) /HPF Urine Bacteria Rare (0-FEW/HPF) /HPF Urine Mucus Rare /LPF Meds: Medications Generic Name Dose Route Start Last Admin Trade Name Freq PRN Reason Stop Dose Admin Sodium Chloride 1,000 mls @ 125 mls/hr 12/19/17 07:00 12/19/17 07:35 Normal Saline IV 125 mls/hr ASDIRECTED JUANA Administration Discontinued Medications Generic Name Dose Route Start Last Admin Trade Name Freq PRN Reason Stop Dose Admin Ceftriaxone Sodium 1 gm 12/19/17 08:01 Rocephin IVPUSH 12/19/17 08:02 ONETIME ONE Ondansetron HCl 4 mg 12/19/17 06:58 12/19/17 07:28 Zofran IV 12/19/17 06:59 4 mg ONETIME ONE Administration Departure - Departure Time of Disposition: 08:09 Disposition: Admitted As Inpatient 65 Condition: Fair Clinical Impression: Nausea, Generalized weakness UTI (urinary tract infection) Qualifiers: Urinary tract infection type: site unspecified Hematuria presence: without hematuria Qualified Code(s): N39.0 - Urinary tract infection, site not specified - Discharge Information Care Plan Goals: Discussed the patient's history, examination and lab results with Dr. Brewster. Dr. Brewster accepted the patient for continued evaluation and further management as an observation patient at [facility]. The patient was given IV Zofran (for nausea), IV fluids started (normal saline), and 1 gram of IV Rocephin (for UTI) while in the ED. - My Orders Last 24 Hours: My Active Orders 12/19/17 06:58 CULTURE BLOOD [BC] Stat UA W/MICROSCOPIC [URIN] Stat 12/19/17 07:00 Sodium Chloride 0.9% @ 125 MLS/HR (1000ml) Sodium Chloride 0.9% [Normal Saline] 1,000 ml IV ASDIRECTED - Assessment/Plan Last 24 Hours: My Active Orders 12/19/17 06:58 CULTURE BLOOD [BC] Stat UA W/MICROSCOPIC [URIN] Stat 12/19/17 07:00 Sodium Chloride 0.9% @ 125 MLS/HR (1000ml) Sodium Chloride 0.9% [Normal Saline] 1,000 ml IV ASDIRECTED
[2017-12-19] MEDS: Sodium Chloride 0.9% 1,000 ML IV SCH ×3 (07:35→21:58)
[2017-12-19 07:45] LABS: CHLORIDE,CL 97 mmol/L (101-111); SODIUM,NA 135 mmol/L (135-145)
[2017-12-19] MEDS ORDERED: cefTRIAXone 1 GM Vial IVPUSH ONE (08:01)
[2017-12-19] MEDS ORDERED: Loperamide 2 MG Cap PO PRN (10:07)
[2017-12-19] MEDS ORDERED: Nitroglycerin 0.4 MG Tab.SL SL PRN (10:07)
[2017-12-19] MEDS ORDERED: diphenhydrAMINE 25 MG Tab PO PRN (10:07)
[2017-12-19] MEDS ORDERED: oxyCODONE 5 MG Tab PO PRN (10:10)
[2017-12-19] MEDS ORDERED: Acetaminophen 325 MG Tab PO PRN (10:10)
[2017-12-19] MEDS ORDERED: Ondansetron 4 MG Tab.DIS PO PRN (10:13)
[2017-12-19] MEDS ORDERED: Ondansetron 4 MG/2 ML SDV IVPUSH PRN (10:13)
[2017-12-19] MEDS ORDERED: Zolpidem 5 MG Tab PO PRN (10:13)
[2017-12-19] MEDS ORDERED: Metoclopramide 10 MG/2 ML SDV IVPUSH PRN (10:15)
--- NOTE | 2017-12-19 10:32 | PCM.HP ---
H&P History of Present Illness - General Date of Service: 12/19/17 Admit Problem/Dx: Admission Diagnosis/Problem Admission Diagnosis/Problem Nausea Source of Information: Patient - History of Present Illness Initial Comments - Free Text/Narative: The patient is a 77-year-old lady who lives alone. She has been having chronic Pain with chronic continuous narcotic use. She has diabetes. She was seen by her primary care physician last Tuesday when she was diagnosed with a urinary tract infection. She was started on Bactrim. Since taking that. The patient has not been feeling well. She is complaining of nausea, diarrhea, generalized weakness. No apparent black or bloody stool, has mild stomach discomfort but no significant pain. No unusual shortness of breath. Has chronic pain in the chest arm and legs. Took Imodium but did not help with the diarrhea. Although she does say that today she did not have bowel movement. She had difficulty ambulating and has been living alone so she came to the emergency room. Bilateral Shoulder Pain Score (Numeric/FACES): 7 Left Knee Pain Score (Numeric/FACES): 7 - Related Data Allergies/Adverse Reactions: Allergies Allergy/AdvReac Type Severity Reaction Status Date / Time adhesive tape Allergy Cannot Verified 12/19/17 09:00 Remember lactose Allergy Diarrhea Verified 12/19/17 09:25 meperidine HCl [From Demerol] Allergy UNKNOWN Verified 12/19/17 09:00 niacin Allergy UNKNOWN Verified 12/19/17 09:00 Sulfa (Sulfonamide Allergy Cannot Verified 12/19/17 09:00 Antibiotics) Remember Home Medications: Home Meds Levothyroxine Sodium 112 mcg PO DAILY 01/15/14 [History] metFORMIN [Glucophage] 500 mg PO BID 01/15/14 [History] Aspirin [Ecotrin] 81 mg PO DAILY 02/26/14 [History] Lisinopril [Zestril] 20 mg PO DAILY 02/26/14 [History] Loperamide [Imodium] 2 mg PO Q4H PRN #1 box 02/26/14 [Rx] Sertraline [Zoloft] 150 mg PO DAILY 02/26/14 [History] Morphine Sulfate [Morphine Sulfate ER] 45 mg PO BID 12/17/16 [History] Vit A/C/E AC/Znox/Cupric Oxide [Eye Vitamin-Minerals Tablet] 1 tab PO ASDIRECTED 12/17/16 [History] oxyCODONE HCl/Acetaminophen [Endocet 10-325 mg Tablet] 1 tab PO TID PRN [History] Ca/D3/Mag#11/Zinc/Bottom Cager/Gene/Bor [Caltrate 600+D Plus Tablet] 1 tab PO DAILY 06/27 [History] Atropine 1% [Isopto Atropine 1% Ophth Soln] 1 drop EYERT DAILY 12/19/17 [History ] Beta-Carotene(A) W-C & E/Min [Vision Vitamins] 1 each PO DAILY 12/19/17 [History ] Brimonidine Tartrate/Timolol [Combigan Eye Drops] 1 drop EYERT BID 12/19/17 [ History] Cholecalciferol (Vitamin D3) [Vitamin D3] 5,000 unit PO DAILY 12/19/17 [History] Latanoprost [Xalatan] 2.5 ml EYERT BEDTIME 12/19/17 [History] Magnesium Oxide [Magnesium] 400 mg PO DAILY 12/19/17 [History] Nitrofurantoin Avery/Macrocryst [Nitrofurantoin Avery-MCR] 100 mg PO BID 12/19/17 [History] Nitroglycerin 0.4 mg SL .Q5MIN X3 PRN 12/19/17 [History] diphenhydrAMINE [Benadryl] 25 mg PO Q8HR PRN 12/19/17 [History] Past Medical History HEENT History: Reports: Impaired Vision Cardiovascular History: Reports: CAD, Hypertension Other Cardiovascular History: has had strokes Respiratory History: Reports: None Gastrointestinal History: Reports: Chronic Diarrhea Genitourinary History: Reports: Urinary Incontinence Other Genitourinary History: freguency [employer] History: Reports: None Musculoskeletal History: Reports: Fracture, Osteoarthritis Other Musculoskeletal History: bursitis Neurological History: Reports: Neuropathy, Diabetic Psychiatric History: Reports: Depression Endocrine/Metabolic History: Reports: Hypothyroidism Hematologic History: Reports: None Immunologic History: Reports: None Oncologic (Cancer) History: Reports: None Dermatologic History: Reports: Other (See Below) Other Dermatologic History: 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 - Infectious Disease History Infectious Disease History: Reports: Chicken Pox, Measles - Past Surgical History Head Surgeries/Procedures: Reports: None HEENT Surgical History: Reports: Cataract Surgery Neurological Surgical History: Reports: Other (See Below) Musculoskeletal Surgical History: Reports: Hip Replacement, ORIF Social & Family History - Family History HEENT: Reports: None OBGYN: Reports: None Psychiatric: Reports: None Endocrine/Metabolic: Reports: Diabetes, type II Other Oncologic Family History: unsure of type - Tobacco Use Smoking Status *Q: Former Smoker Years of Tobacco use: 18 Packs/Tins Daily: 3 Used Tobacco, but Quit: Yes Month/Year Tobacco Last Used: unknown Second Hand Smoke Exposure: No - Caffeine Use Caffeine Use: Reports: Coffee - Alcohol Use Days Per Week of Alcohol Use: 0 - Recreational Drug Use Recreational Drug Use: No - Living Situation & Occupation Living situation: Reports: Single, , Alone Occupation: Retired H&P Review of Systems - Review of Systems: Review Of Systems: See Below General: Reports: Malaise, Weakness, Fatigue, Decreased Appetite Pulmonary: Denies: Shortness of Breath Cardiovascular: Reports: Chest Pain (Chronic). Denies: Edema Gastrointestinal: Reports: Anorexia, Diarrhea, Nausea. Denies: Vomiting Musculoskeletal: Reports: Arm Pain, Leg Pain (Chronic) Psychiatric: Denies: Confusion Exam - Exam Exam: See Below - Vital Signs Vital Signs: Last Vital Signs Temp 36.8 C 12/19/17 08:46 Pulse 86 12/19/17 08:46 Resp 20 12/19/17 08:46 BP 172/71 H 12/19/17 08:46 Pulse Ox 99 12/19/17 08:46 Weight: 58.513 kg - Exam General: Alert, Oriented Neck: Supple Lungs: Clear to Auscultation, Normal Respiratory Effort, Decreased Breath Sounds Cardiovascular: Regular Rate, Regular Rhythm GI/Abdominal Exam: Normal Bowel Sounds, Soft, Non-Tender Extremities: No Pedal Edema Skin: Warm, Dry Neuro Extensive - Mental Status: Alert, Oriented x3, Normal Mood/Affect - Patient Data Lab Results Last 24 hrs: Laboratory Results - last 24 hr 12/19/17 12/19/17 12/19/17 Range/Units 07:15 07:17 07:17 WBC 5.4 (5.0-10.0) 10^3/uL RBC 3.66 L (4.2-5.4) 10^6/uL Hgb 10.6 L (12.0-16.0) g/dL Hct 32.7 L (37.0-47.0) % MCV 89.3 (80-100) fL MCH 29.0 (27.0-34.0) pg MCHC 32.4 L (33.0-35.0) g/dL Plt Count 123 L (150-450) 10^3/uL Neut % (Auto) 76.8 H (42.2-75.2) % Lymph % (Auto) 5.4 L (20.5-50.1) % [place] % (Auto) 11.5 H (2-8) % Eos % (Auto) 6.1 H (1.0-3.0) % Baso % (Auto) 0.2 (0.0-1.0) % Sodium 135 (135-145) mmol/L Potassium 3.8 (3.6-5.0) mmol/L Chloride 97 L (101-111) mmol/L Carbon Dioxide 30.0 (21.0-31.0) mmol/L Anion Gap 11.8 BUN 9 (7-18) mg/dL Creatinine 0.4 L (0.6-1.3) mg/dL Est Cr Clr Drug Dosing TNP Estimated GFR (MDRD) > 60 BUN/Creatinine Ratio 22.50 Glucose 125 H (74-105) mg/dL POC Glucose (83-110) mg/dl Lactic Acid 1.3 (0.5-2.2) mmol/L Calcium 8.7 (8.4-10.2) mg/dl Total Bilirubin 1.0 (0.2-1.0) mg/dL AST 23 (10-42) IU/L ALT 13 (10-60) IU/L Alkaline Phosphatase 79 (42-121) IU/L Total Protein 6.5 L (6.7-8.2) g/dl Albumin 3.4 (3.2-5.5) g/dl Globulin 3.1 Albumin/Globulin Ratio 1.10 Urine Color (YELLOW) Urine Appearance (CLEAR) Urine pH (5.0-9.0) Ur Specific [place] (1.005-1.030) Urine Protein (NEGATIVE) Urine Glucose (UA) (NEGATIVE) Urine Ketones (NEGATIVE) Urine Occult Blood (NEGATIVE) Urine Nitrite (NEGATIVE) Urine Bilirubin (NEGATIVE) Urine Urobilinogen (0.2-1.0) mg/dL Ur Leukocyte Esterase (NEGATIVE) Urine RBC /HPF Urine WBC (0-5/HPF) /HPF Ur Epithelial Cells /HPF Amorphous Sediment (0/HPF) /HPF Urine Bacteria (0-FEW/HPF) /HPF Urine Mucus /LPF 12/19/17 12/19/17 Range/Units 07:25 08:39 WBC (5.0-10.0) 10^3/uL RBC (4.2-5.4) 10^6/uL Hgb (12.0-16.0) g/dL Hct (37.0-47.0) % MCV (80-100) fL MCH (27.0-34.0) pg MCHC (33.0-35.0) g/dL Plt Count (150-450) 10^3/uL Neut % (Auto) (42.2-75.2) % Lymph % (Auto) (20.5-50.1) % [place] % (Auto) (2-8) % Eos % (Auto) (1.0-3.0) % Baso % (Auto) (0.0-1.0) % Sodium (135-145) mmol/L Potassium (3.6-5.0) mmol/L Chloride (101-111) mmol/L Carbon Dioxide (21.0-31.0) mmol/L Anion Gap BUN (7-18) mg/dL Creatinine (0.6-1.3) mg/dL Est Cr Clr Drug Dosing Estimated GFR (MDRD) BUN/Creatinine Ratio Glucose (74-105) mg/dL POC Glucose 104 (83-110) mg/dl Lactic Acid (0.5-2.2) mmol/L Calcium (8.4-10.2) mg/dl Total Bilirubin (0.2-1.0) mg/dL AST (10-42) IU/L ALT (10-60) IU/L Alkaline Phosphatase (42-121) IU/L Total Protein (6.7-8.2) g/dl Albumin (3.2-5.5) g/dl Globulin Albumin/Globulin Ratio Urine Color Yellow (YELLOW) Urine Appearance Cloudy (CLEAR) Urine pH 7.0 (5.0-9.0) Ur Specific [place] 1.020 (1.005-1.030) Urine Protein Negative (NEGATIVE) Urine Glucose (UA) Negative (NEGATIVE) Urine Ketones Negative (NEGATIVE) Urine Occult Blood Negative (NEGATIVE) Urine Nitrite Negative (NEGATIVE) Urine Bilirubin Negative (NEGATIVE) Urine Urobilinogen 0.2 (0.2-1.0) mg/dL Ur Leukocyte Esterase Small H (NEGATIVE) Urine RBC 0-5 /HPF Urine WBC 20-30 H (0-5/HPF) /HPF Ur Epithelial Cells Few /HPF Amorphous Sediment Rare (0/HPF) /HPF Urine Bacteria Rare (0-FEW/HPF) /HPF Urine Mucus Rare /LPF Result Diagrams: 12/19/17 07:17 12/19/17 07:17 Problem List Initiated/Reviewed/Updated: Yes Orders Last 24hrs: Active Orders 24 hr Category Date Time Status Patient Status [ADT] Routine ADT 12/19/17 10:13 Active Glucose [Blood Glucose Check, Bedside] [RC] QIDACANDBED Care 12/19/17 10:11 Active Oxygen Therapy [RC] PRN Care 12/19/17 10:13 Active Up With Assistance [RC] ASDIRECTED Care 12/19/17 10:13 Active VTE/DVT Education [RC] PER UNIT ROUTINE Care 12/19/17 10:13 Active Vital Signs [RC] Q4H Care 12/19/17 10:13 Active OT Evaluation and Treatment [CONS] Routine Cons 12/19/17 10:24 Ordered PT Evaluation and Treatment [CONS] Routine Cons 12/19/17 10:24 Ordered Clear Liquid Diet [DIET] Diet 12/19/17 Lunch Active BASIC METABOLIC PANEL,BMP [CHEM] AM Lab 12/20/17 05:15 Ordered CBC WITH AUTO DIFF [HEME] AM Lab 12/20/17 05:15 Ordered CULTURE BLOOD [BC] Stat Lab 12/19/17 07:15 Received UA W/MICROSCOPIC [URIN] Stat Lab 12/19/17 07:25 Ordered Acetaminophen [Tylenol] Med 12/19/17 10:10 Ordered 650 mg PO Q6H PRN Aspirin [Halfprin] Med 12/19/17 10:15 Ordered 81 mg PO DAILY Atropine 1% Med 12/19/17 10:15 Ordered 1 drop EYERT DAILY Brimonidine Tartrate/Timolol [Combigan 0.2%-0.5% Eye Med 12/19/17 10:15 Ordered Drops] 1 drop EYERT BID Heparin Sodium Med 12/19/17 14:00 Ordered 5,000 units SUBCUT Q8HR Insulin Aspart [NovoLOG] Med 12/19/17 11:00 Ordered See Protocol SUBCUT TIDAC Latanoprost [Xalatan 0.005% Ophth Soln] Med 12/19/17 21:00 Ordered 2.5 ml EYERT BEDTIME Levothyroxine Med 12/19/17 10:15 Ordered 112 mcg PO DAILY Lisinopril [Prinivil] Med 12/19/17 10:15 Ordered 20 mg PO DAILY Loperamide [Imodium] Med 12/19/17 10:07 Ordered 2 mg PO Q6H PRN Metoclopramide [Reglan] Med 12/19/17 10:15 Ordered 10 mg IVPUSH Q6H PRN Morphine [MS Contin] Med 12/19/17 21:00 Ordered 45 mg PO BID Nitroglycerin [Nitrostat] Med 12/19/17 10:07 Ordered 0.4 mg SL .Q5MIN X3 PRN Ondansetron [Zofran ODT] Med 12/19/17 10:13 Ordered 4 mg PO Q6H PRN Ondansetron [Zofran] Med 12/19/17 10:13 Ordered 4 mg IVPUSH Q6H PRN Sertraline [Zoloft] Med 12/19/17 10:15 Ordered 150 mg PO DAILY Sodium Chloride 0.9% [Normal Saline] 1,000 ml Med 12/19/17 07:00 Active IV ASDIRECTED Zolpidem [Ambien] Med 12/19/17 10:13 Ordered 5 mg PO BEDTIME PRN cefTRIAXone [Rocephin] Med 12/20/17 08:00 Active 1 gm IVPUSH Q24H diphenhydrAMINE [Benadryl] Med 12/19/17 10:07 Ordered 25 mg PO Q8HR PRN oxyCODONE Med 12/19/17 10:10 Ordered 10 mg PO Q8H PRN Antiembolic Hose [OM.PC] Per Unit Routine Oth 12/19/17 10:14 Ordered Resuscitation Status Routine Resus Stat 12/19/17 10:13 Ordered Medication Orders Acetaminophen (Tylenol) 650 mg PO Q6H PRN PRN Reason: mild pain Aspirin (Halfprin) 81 mg PO DAILY [facility] Ceftriaxone Sodium (Rocephin) 1 gm IVPUSH Q24H [facility] Diphenhydramine HCl (Benadryl) 25 mg PO Q8HR PRN PRN Reason: Itching Heparin Sodium (Porcine) (Heparin Sodium) 5,000 units SUBCUT Q8HR [facility] Sodium Chloride (Normal Saline) 1,000 mls @ 125 mls/hr IV ASDIRECTED [facility] Last Admin: 12/19/17 07:35 Dose: 125 mls/hr Insulin Aspart (Novolog) 0 unit SUBCUT TIDAC [facility]; Protocol Latanoprost (Xalatan 0.005% Ophth Soln) 2.5 ml EYERT BEDTIME [facility] Levothyroxine Sodium (Levothyroxine) 112 mcg PO DAILY [facility] Lisinopril (Prinivil) 20 mg PO DAILY [facility] Loperamide HCl (Imodium) 2 mg PO Q6H PRN PRN Reason: Diarrhea Metoclopramide HCl (Reglan) 10 mg IVPUSH Q6H PRN PRN Reason: Nausea Morphine Sulfate (Ms Contin) 45 mg PO BID [facility] Nitroglycerin (Nitrostat) 0.4 mg SL .Q5MIN X3 PRN PRN Reason: Chest Pain Non-Formulary Medication (Atropine 1%) 1 drop EYERT DAILY [facility] Non-Formulary Medication (Brimonidine Tartrate/Timolol [Combigan 0.2%-0.5% Eye Drops]) 1 drop EYERT BID [facility] Non-Formulary Medication (Sertraline [Zoloft]) 150 mg PO DAILY [facility] Ondansetron HCl (Zofran Odt) 4 mg PO Q6H PRN PRN Reason: nausea, able to take PO Ondansetron HCl (Zofran) 4 mg IVPUSH Q6H PRN PRN Reason: Nausea/Vomiting Oxycodone HCl (Oxycodone) 10 mg PO Q8H PRN PRN Reason: Pain Zolpidem Tartrate (Ambien) 5 mg PO BEDTIME PRN PRN Reason: Sleep Assessment/Plan Comment:: 77-year-old lady with a history of chronic pain, diabetes. She has been living independently. She has been feeling nausea diarrhea generalized weakness since starting on extreme last Tuesday. #1 urinary tract infection We'll stop the Bactrim Treat with Rocephin #2 nausea, diarrhea, generalized weakness This might relate to Bactrim Will treat symptomatically Gentle IV fluids Follow electrolytes Clear liquid diet #3 diabetes Hold metformin Follow blood sugars Use supplemental insulin as needed #4 have PT and OT evaluate her #5 DVT prophylaxis with subcutaneous heparin
[2017-12-19] MEDS: Morphine 15 MG Tab.ER PO SCH ×2 (11:40→21:25)
[2017-12-19] MEDS: Sertraline 50 MG Tab PO SCH (11:40)
[2017-12-19] MEDS: Levothyroxine 112 MCG Tab PO SCH (11:41)
[2017-12-19] MEDS: Aspirin 81 MG Tab.EC PO SCH (11:42)
[2017-12-19] MEDS: Lisinopril 20 MG Tab PO SCH (11:42)
[2017-12-19] MEDS: Atropine 1% Ophth Soln 5 ML BOTTLE EYERT SCH (11:44)
[2017-12-19] MEDS: Insulin Aspart 100 Units/ML 3 ML Pen SUBCUT SCH ×2 (12:02→16:56)
--- NOTE | 2017-12-19 12:25 | PCM.SN ---
- Free Text/Narrative Note: Patient would like to have DNR CODE STATUS
[2017-12-19] MEDS: Dorzolamide/Timolol 2%-0.5% Ophth Soln 10 ML Bottle EYERT SCH ×2 (13:09→21:20)
[2017-12-19] MEDS: Heparin Sodium 5,000 Units/ML Vial SUBCUT SCH ×2 (15:09→21:30)
[2017-12-19] MEDS ORDERED: Sodium Chloride 0.9% 10 ML Syringe FLUSH PRN (16:44)
[2017-12-19] MEDS ORDERED: Latanoprost 0.005% Ophth Soln 2.5 ML Bottle EYERT SCH (21:00)
[2017-12-20] MEDS: Heparin Sodium 5,000 Units/ML Vial SUBCUT SCH (05:48)
[2017-12-20] MEDS: Levothyroxine 112 MCG Tab PO SCH (05:49)
[2017-12-20 07:07] LABS: CHLORIDE,CL 99 mmol/L (101-111); SODIUM,NA 138 mmol/L (135-145)
[2017-12-20] MEDS ORDERED: cefTRIAXone 1 GM Vial IVPUSH SCH (08:00)
[2017-12-20] MEDS: Insulin Aspart 100 Units/ML 3 ML Pen SUBCUT SCH ×2 (08:24→12:15)
[2017-12-20] MEDS: Sertraline 50 MG Tab PO SCH (08:35)
[2017-12-20] MEDS: Lisinopril 20 MG Tab PO SCH (08:36)
[2017-12-20] MEDS: Aspirin 81 MG Tab.EC PO SCH (08:36)
[2017-12-20] MEDS: Morphine 15 MG Tab.ER PO SCH (08:36)
[2017-12-20] MEDS: Atropine 1% Ophth Soln 5 ML BOTTLE EYERT SCH (08:40)
[2017-12-20] MEDS: Dorzolamide/Timolol 2%-0.5% Ophth Soln 10 ML Bottle EYERT SCH (08:41)
[2017-12-20] MEDS ORDERED: Potassium Chloride 10 MEQ Tab.ER PO ONE (09:18)
--- NOTE | 2017-12-20 09:49 | PCM.DCSUM1 ---
Discharge Summary - Hospital Course Free Text/Narrative:: 77-year-old lady with a history of chronic pain, diabetes. She has been living independently. She has been feeling nausea diarrhea generalized weakness since starting on Nitrofurantoin last Tuesday. #1 urinary tract infection E coli sens to ampicillin stop the nitrofurantoin Treated with Rocephin will finish tx. with keflex #2 nausea, diarrhea, generalized weakness This might relate to Nitrofurantoin Treated symptomatically improved tolerating diet #3 diabetes resume metformin #4 hypokalemia will replace - Discharge Data Discharge Date: 12/20/17 Discharge Disposition: Home, Self-Care 01 Condition: Good - Patient Summary/Data Consults: Consultations 12/19/17 10:24 OT Evaluation and Treatment [CONS] Routine PT Evaluation and Treatment [CONS] Routine - Patient Instructions Diet: Heart Healthy Diet, Diabetic Diet Activity: As Tolerated - Discharge Plan Prescriptions/Med Rec: Cephalexin [Keflex] 500 mg PO TID #15 cap Potassium Chloride 20 meq PO DAILY 3 Days #3 tablet.er Home Medications: Home Meds Levothyroxine Sodium 112 mcg PO DAILY 01/15/14 [History] metFORMIN [Glucophage] 500 mg PO BID 01/15/14 [History] Aspirin [Ecotrin] 81 mg PO DAILY 02/26/14 [History] Lisinopril [Zestril] 20 mg PO DAILY 02/26/14 [History] Loperamide [Imodium] 2 mg PO Q4H PRN #1 box 02/26/14 [Rx] Sertraline [Zoloft] 150 mg PO DAILY 02/26/14 [History] Morphine Sulfate [Morphine Sulfate ER] 45 mg PO BID 12/17/16 [History] Vit A/C/E AC/Znox/Cupric Oxide [Eye Vitamin-Minerals Tablet] 1 tab PO ASDIRECTED 12/17/16 [History] oxyCODONE HCl/Acetaminophen [Endocet 10-325 mg Tablet] 1 tab PO TID PRN [History] Ca/D3/Mag#11/Zinc/Passenger Train Braker/Gene/Bor [Caltrate 600+D Plus Tablet] 1 tab PO DAILY 06/27 [History] Atropine 1% [Isopto Atropine 1% Ophth Soln] 1 drop EYERT DAILY 12/19/17 [History ] Beta-Carotene(A) W-C & E/Min [Vision Vitamins] 1 each PO DAILY 12/19/17 [History ] Brimonidine Tartrate/Timolol [Combigan 0.2%-0.5% Eye Drops] 1 drop EYERT BID [History] Cholecalciferol (Vitamin D3) [Vitamin D3] 5,000 unit PO DAILY 12/19/17 [History] Latanoprost [Xalatan 0.005% Ophth Soln] 2.5 ml EYERT BEDTIME 12/19/17 [History] Magnesium Oxide [Magnesium] 400 mg PO DAILY 12/19/17 [History] Nitroglycerin 0.4 mg SL .Q5MIN X3 PRN 12/19/17 [History] diphenhydrAMINE [Benadryl] 25 mg PO Q8HR PRN 12/19/17 [History] Cephalexin [Keflex] 500 mg PO TID #15 cap 12/20/17 [Rx] Potassium Chloride 20 meq PO DAILY 3 Days #3 tablet.er 12/20/17 [Rx] Referrals: PCP,None [Ordering Only Provider] - (in 3-4 days) - Discharge Summary/Plan Comment DC Time >30 min.: No - General Info Date of Service: 12/20/17 Admission Dx/Problem (Free Text: Admission Diagnosis/Problem Admission Diagnosis/Problem Nausea Subjective Update: Feeling well. Tolerating food. No more diarrhea. Has been up and walking with physical therapy. Discussed with physical therapy - No concern about returning home. Functional Status: Reports: Pain Controlled, Tolerating Diet - Review of Systems General: Denies: Fever Pulmonary: Denies: Shortness of Breath Cardiovascular: Denies: Chest Pain Gastrointestinal: Denies: Abdominal Pain Neurological: Denies: Confusion - Patient Data Vitals - Most Recent: Last Vital Signs Temp 36.4 C 12/20/17 08:11 Pulse 87 12/20/17 08:11 Resp 20 12/20/17 08:11 BP 148/69 H 12/20/17 08:36 Pulse Ox 98 12/20/17 08:11 Weight - Most Recent: 58.513 kg I&O - Last 24 hours: Intake & Output 12/19/17 12/20/17 12/20/17 22:59 06:59 14:59 Intake Total 2490 150 520 Output Total 1250 1400 200 Balance 1240 -1250 320 Lab Results - Last 24 hrs: Laboratory Results - last 24 hr 12/19/17 12/19/17 12/19/17 Range/Units 11:42 16:43 20:51 WBC (5.0-10.0) 10^3/uL RBC (4.2-5.4) 10^6/uL Hgb (12.0-16.0) g/dL Hct (37.0-47.0) % MCV (80-100) fL MCH (27.0-34.0) pg MCHC (33.0-35.0) g/dL Plt Count (150-450) 10^3/uL Neut % (Auto) (42.2-75.2) % Lymph % (Auto) (20.5-50.1) % [place] % (Auto) (2-8) % Eos % (Auto) (1.0-3.0) % Baso % (Auto) (0.0-1.0) % Sodium (135-145) mmol/L Potassium (3.6-5.0) mmol/L Chloride (101-111) mmol/L Carbon Dioxide (21.0-31.0) mmol/L Anion Gap BUN (7-18) mg/dL Creatinine (0.6-1.3) mg/dL Est Cr Clr Drug Dosing mL/min Estimated GFR (MDRD) Glucose (74-105) mg/dL POC Glucose 155 H 133 H 362 H (83-110) mg/dl Calcium (8.4-10.2) mg/dl 12/20/17 12/20/17 12/20/17 Range/Units 06:20 06:20 07:55 WBC 4.2 L (5.0-10.0) 10^3/uL RBC 3.69 L (4.2-5.4) 10^6/uL Hgb 10.8 L (12.0-16.0) g/dL Hct 33.0 L (37.0-47.0) % MCV 89.4 (80-100) fL MCH 29.3 (27.0-34.0) pg MCHC 32.7 L (33.0-35.0) g/dL Plt Count 111 L (150-450) 10^3/uL Neut % (Auto) 70.6 (42.2-75.2) % Lymph % (Auto) 9.7 L (20.5-50.1) % [place] % (Auto) 11.9 H (2-8) % Eos % (Auto) 7.6 H (1.0-3.0) % Baso % (Auto) 0.2 (0.0-1.0) % Sodium 138 (135-145) mmol/L Potassium 3.0 L (3.6-5.0) mmol/L Chloride 99 L (101-111) mmol/L Carbon Dioxide 30.0 (21.0-31.0) mmol/L Anion Gap 12.0 BUN 4 L (7-18) mg/dL Creatinine 0.3 L (0.6-1.3) mg/dL Est Cr Clr Drug Dosing 127.85 mL/min Estimated GFR (MDRD) > 60 Glucose 133 H (74-105) mg/dL POC Glucose 135 H (83-110) mg/dl Calcium 8.2 L (8.4-10.2) mg/dl MARTHA Results - Last 24 hrs: Microbiology 12/19/17 07:15 Aerobic Blood Culture - Preliminary Blood NO GROWTH AFTER 1 DAY Anaerobic Blood Culture - Preliminary NO GROWTH AFTER 1 DAY Med Orders - Current: Current Medications Acetaminophen (Tylenol) 650 mg PO Q6H PRN PRN Reason: mild pain Aspirin (Halfprin) 81 mg PO DAILY [facility] Last Admin: 12/20/17 08:36 Dose: 81 mg Atropine Sulfate (Atropine 1% Ophth Soln) 0 ml EYERT DAILY [facility] Last Admin: 12/20/17 08:40 Dose: 1 ml Ceftriaxone Sodium (Rocephin) 1 gm IVPUSH Q24H [facility] Last Admin: 12/20/17 07:44 Dose: 1 gm Diphenhydramine HCl (Benadryl) 25 mg PO Q8HR PRN PRN Reason: Itching Dorzolamide/Timolol (Cosopt 2%-0.5% Ophth Soln) 0 ml EYERT BID [facility] Last Admin: 12/20/17 08:41 Dose: 1 drop Heparin Sodium (Porcine) (Heparin Sodium) 5,000 units SUBCUT Q8HR [facility] Last Admin: 12/20/17 05:48 Dose: 5,000 units Insulin Aspart (Novolog) 0 unit SUBCUT TIDAC [facility]; Protocol Last Admin: 12/20/17 08:24 Dose: Not Given Latanoprost (Xalatan 0.005% Ophth Soln) 0 ml EYERT BEDTIME [facility] Last Admin: 12/19/17 21:27 Dose: 1 drop Levothyroxine Sodium (Levothyroxine) 112 mcg PO ACBRK [facility] Last Admin: 12/20/17 05:49 Dose: 112 mcg Lisinopril (Prinivil) 20 mg PO DAILY [facility] Last Admin: 12/20/17 08:36 Dose: 20 mg Loperamide HCl (Imodium) 2 mg PO Q6H PRN PRN Reason: Diarrhea Last Admin: 12/19/17 15:09 Dose: 2 mg Metoclopramide HCl (Reglan) 10 mg IVPUSH Q6H PRN PRN Reason: Nausea Morphine Sulfate (Ms Contin) 45 mg PO BID [facility] Last Admin: 12/20/17 08:36 Dose: 45 mg Nitroglycerin (Nitrostat) 0.4 mg SL Q5M PRN PRN Reason: Chest Pain Last Admin: 12/19/17 16:13 Dose: 0.4 mg Ondansetron HCl (Zofran Odt) 4 mg PO Q6H PRN PRN Reason: nausea, able to take PO Ondansetron HCl (Zofran) 4 mg IVPUSH Q6H PRN PRN Reason: Nausea/Vomiting Oxycodone HCl (Oxycodone) 10 mg PO Q8H PRN PRN Reason: Pain Last Admin: 12/19/17 12:07 Dose: 10 mg Sertraline HCl (Zoloft) 150 mg PO DAILY [facility] Last Admin: 12/20/17 08:35 Dose: 150 mg Sodium Chloride (Saline Flush) 10 ml FLUSH ASDIRECTED PRN PRN Reason: Keep Vein Open Last Admin: 12/20/17 07:44 Dose: 10 ml Zolpidem Tartrate (Ambien) 5 mg PO BEDTIME PRN PRN Reason: Sleep Discontinued Medications Ceftriaxone Sodium (Rocephin) 1 gm IVPUSH ONETIME ONE Stop: 12/19/17 08:02 Last Admin: 12/19/17 08:14 Dose: 1 gm Sodium Chloride (Normal Saline) 1,000 mls @ 125 mls/hr IV ASDIRECTED [facility] Last Admin: 12/19/17 21:58 Dose: 125 mls/hr Ondansetron HCl (Zofran) 4 mg IV ONETIME ONE Stop: 12/19/17 06:59 Last Admin: 12/19/17 07:28 Dose: 4 mg Potassium Chloride (Klor-Con 10) 40 meq PO ONETIME ONE Stop: 12/20/17 09:19 - Exam General: Reports: Alert, Oriented Neck: Reports: Supple Lungs: Reports: Clear to Auscultation, Normal Respiratory Effort Cardiovascular: Reports: Regular Rate, Regular Rhythm GI/Abdominal Exam: Normal Bowel Sounds, Soft, Non-Tender Extremities: No Pedal Edema
[2017-12-20 10:58] VITALS: BP 152/67
== END 2017-12-20 13:30 | disposition home or self-care (01) ==
LOC: DL.ED 06:41 → DL.MS 08:40 → UNDOADMOB 08:40 → DL.MS 10:12
PROVIDERS: ADMIT Internal Medicine; ATTEND Internal Medicine
DX: N39.0 Urinary tract infection, site not specified (principal); B96.20 Unspecified Escherichia coli [E. coli] as the cause of diseases classified elsewhere; R11.0 Nausea; R53.1 Weakness; E87.6 Hypokalemia; I25.10 Atherosclerotic heart disease of native coronary artery without angina pectoris; I10 Essential (primary) hypertension; K52.9 Noninfective gastroenteritis and colitis, unspecified; E03.9 Hypothyroidism, unspecified; F32.9 Major depressive disorder, single episode, unspecified; E11.40 Type 2 diabetes mellitus with diabetic neuropathy, unspecified; Z79.2 Long term (current) use of antibiotics; Z79.899 Other long term (current) drug therapy; Z79.82 Long term (current) use of aspirin; Z79.84 Long term (current) use of oral hypoglycemic drugs; Z88.2 Allergy status to sulfonamides; Z91.011 Allergy to milk products; Z91.09 Other allergy status, other than to drugs and biological substances; Z88.8 Allergy status to other drugs, medicaments and biological substances; Z87.891 Personal history of nicotine dependence
CPT/HCPCS: 36415; 80048; 80053; 81001; 82962; 83605; 85025; 87040; 96361; 96372; 96374; 96375; 96376; 97162; 97166; 99285; A9270; G0378; J0696; J1644; J1815; J2405; J7030; J7050

== ENCOUNTER 2018-03-16 08:46 | Emergency (ER) | payer MEDICARE, OTHER ==
[2018-03-16 09:08] VITALS: BP 155/76
--- NOTE | 2018-03-16 09:19 | EDM.PDOC ---
ED HPI GENERAL MEDICAL PROBLEM - General Chief Complaint: General Stated Complaint: ? STROKE, CAN'T WALK, STANDING IFFY Time Seen by Provider: 03/16/18 08:50 Source of Information: Reports: Patient History Limitations: Reports: No Limitations - History of Present Illness INITIAL COMMENTS - FREE TEXT/NARRATIVE: This 77 yo female patient reports to the ED with increased pain in her left knee. The patient reports she started having increased pain on Tuesday. The patient reports she has also been experiencing increased upper body pain, but thinks that is due to using her upper body to support herself while using the walker. The patient reports that she has been taking her medications (Morphine and Oxycodone) on a regular basis, but she has continued to have pain. The patient also reports that she seems to be tired all of the time. The patient reports that she used to have injections in her knee, but was told that she could no longer have injections. The patient also reports that her doctor advised her that surgery on her knee would be too tough on her. The patient also reports that she has been urinating frequently over the past several days. The patient reports that she has not seen her primary care facility for her current symptoms. 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: Reports: Other Medication(s) (Morphine and Oxycodone) Generalized Pain Score (Numeric/FACES): 10 - Related Data Allergies Allergy/AdvReac Type Severity Reaction Status Date / Time adhesive tape Allergy Cannot Verified 03/16/18 09:02 Remember lactose Allergy Diarrhea Verified 03/16/18 09:02 meperidine HCl [From Demerol] Allergy UNKNOWN Verified 03/16/18 09:02 niacin Allergy UNKNOWN Verified 03/16/18 09:02 Sulfa (Sulfonamide Allergy Cannot Verified 03/16/18 09:02 Antibiotics) Remember Home Meds: Home Meds Levothyroxine Sodium 112 mcg PO DAILY 01/15/14 [History] metFORMIN [Glucophage] 500 mg PO BID 01/15/14 [History] Aspirin [Ecotrin] 81 mg PO DAILY 02/26/14 [History] Lisinopril [Zestril] 20 mg PO DAILY 02/26/14 [History] Loperamide [Imodium] 2 mg PO Q4H PRN #1 box 02/26/14 [Rx] Sertraline [Zoloft] 150 mg PO DAILY 02/26/14 [History] Morphine Sulfate [Morphine Sulfate ER] 45 mg PO BID 12/17/16 [History] Vit A/C/E AC/Znox/Cupric Oxide [Eye Vitamin-Minerals Tablet] 1 tab PO ASDIRECTED 12/17/16 [History] oxyCODONE HCl/Acetaminophen [Endocet 10-325 mg Tablet] 1 tab PO TID PRN [History] Ca/D3/Mag#11/Zinc/Director Traffic And Planning/Gene/Bor [Caltrate 600+D Plus Tablet] 1 tab PO DAILY 06/27 [History] Atropine 1% [Isopto Atropine 1% Ophth Soln] 1 drop EYERT DAILY 12/19/17 [History ] Beta-Carotene(A) W-C & E/Min [Vision Vitamins] 1 each PO DAILY 12/19/17 [History ] Brimonidine Tartrate/Timolol [Combigan 0.2%-0.5% Eye Drops] 1 drop EYERT BID [History] Cholecalciferol (Vitamin D3) [Vitamin D3] 5,000 unit PO DAILY 12/19/17 [History] Latanoprost [Xalatan 0.005% Ophth Soln] 2.5 ml EYERT BEDTIME 12/19/17 [History] Magnesium Oxide [Magnesium] 400 mg PO DAILY 12/19/17 [History] Nitroglycerin 0.4 mg SL .Q5MIN X3 PRN 12/19/17 [History] diphenhydrAMINE [Benadryl] 25 mg PO Q8HR PRN 12/19/17 [History] Potassium Chloride 20 meq PO DAILY 3 Days #3 tablet.er 12/20/17 [Rx] cephALEXin [Keflex] 500 mg PO TID #15 cap 12/20/17 [Rx] Past Medical History HEENT History: Reports: Hard of Hearing, Impaired Vision Cardiovascular History: Reports: CAD, Hypertension Other Cardiovascular History: has had strokes Respiratory History: Reports: None Gastrointestinal History: Reports: Chronic Diarrhea Genitourinary History: Reports: Urinary Incontinence Other Genitourinary History: freguency CLINICAL RESOURCE COORDINATOR History: Reports: None Musculoskeletal History: Reports: Fracture, Osteoarthritis, RA Other Musculoskeletal History: bursitis Neurological History: Reports: Neuropathy, Diabetic Psychiatric History: Reports: Depression Endocrine/Metabolic History: Reports: Hypothyroidism Hematologic History: Reports: None Immunologic History: Reports: None Oncologic (Cancer) History: Reports: None Dermatologic History: Reports: Other (See Below) Other Dermatologic History: 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 - Infectious Disease History Infectious Disease History: Reports: Chicken Pox, Measles - Past Surgical History Head Surgeries/Procedures: Reports: None HEENT Surgical History: Reports: Cataract Surgery Neurological Surgical History: Reports: Other (See Below) Musculoskeletal Surgical History: Reports: Hip Replacement, ORIF Social & Family History - Family History Family Medical History: Noncontributory HEENT: Reports: None OBGYN: Reports: None Psychiatric: Reports: None Endocrine/Metabolic: Reports: Diabetes, type II Other Oncologic Family History: unsure of type - Tobacco Use Smoking Status *Q: Former Smoker Used Tobacco, but Quit: Yes Month/Year Tobacco Last Used: ? - Caffeine Use Caffeine Use: Reports: Coffee, Tea - Recreational Drug Use Recreational Drug Use: No - Living Situation & Occupation Living situation: Reports: Single, , Alone Occupation: Retired ED ROS GENERAL - Review of Systems Review Of Systems: ROS reveals no pertinent complaints other than HPI. ED EXAM, GENERAL - Physical Exam Exam: See Below Exam Limited By: No Limitations General Appearance: Alert, WD/WN, No Apparent Distress Eye Exam: Bilateral Eye: EOMI, Normal Inspection, PERRL Ears: Other (bilateral hearing aids, but still very hard of hearing) Nose: Normal Inspection, Normal Mucosa, No Blood Throat/Mouth: Normal Inspection, Normal Lips, Normal Teeth, Normal Gums, Normal Oropharynx, Normal Voice, No Airway Compromise Head: Atraumatic, Normocephalic Neck: Normal Inspection, Supple, Non-Tender, Full Range of Motion Respiratory/Chest: No Respiratory Distress, Lungs Clear, Normal Breath Sounds, No Accessory Muscle Use, Other (generalized chest wall tenderness) Cardiovascular: Normal Peripheral Pulses, Regular Rate, Rhythm, No Edema, No Gallop, No JVD, No Murmur, No Rub GI/Abdominal: Normal Bowel Sounds, Soft, Non-Tender, No Organomegaly, No Distention, No Abnormal Bruit, No Mass (Female) Exam: Deferred Rectal (Female) Exam: Deferred Back Exam: Decreased Range of Motion Extremities: Leg Pain (left knee pain (the patient has valgus deviation of her knee which the patient reports is normal for her).) Neurological: Alert, Oriented, CN II-XII Intact, Normal Cognition Psychiatric: Normal Affect, Normal Mood Skin Exam: Warm, Dry, Intact, Normal Color, No Rash Lymphatic: No Adenopathy Course - Vital Signs Last Recorded V/S: Last Vital Signs Temp 36.9 C 03/16/18 08:52 Pulse 86 03/16/18 09:07 Resp 16 03/16/18 09:07 BP 155/76 H 03/16/18 09:07 Pulse Ox 100 03/16/18 09:07 - Orders/Labs/Meds Orders: Active Orders 24 hr Category Date Time Status EKG Documentation Completion [RC] URGENT Care 03/16/18 08:53 Active UA W/MICROSCOPIC [URIN] Stat Lab 03/16/18 09:17 Ordered Labs: Laboratory Tests 03/16/18 03/16/18 03/16/18 Range/Units 09:06 09:06 09:17 WBC 3.5 L (5.0-10.0) 10^3/uL RBC 3.66 L (4.2-5.4) 10^6/uL Hgb 10.5 L (12.0-16.0) g/dL Hct 32.7 L (37.0-47.0) % MCV 89.3 (80-100) fL MCH 28.7 (27.0-34.0) pg MCHC 32.1 L (33.0-35.0) g/dL Plt Count 126 L (150-450) 10^3/uL Neut % (Auto) 69.0 (42.2-75.2) % Lymph % (Auto) 17.3 L (20.5-50.1) % [place] % (Auto) 10.8 H (2-8) % Eos % (Auto) 2.6 (1.0-3.0) % Baso % (Auto) 0.3 (0.0-1.0) % Sodium 139 (135-145) mmol/L Potassium 3.5 L (3.6-5.0) mmol/L Chloride 100 L (101-111) mmol/L Carbon Dioxide 34.0 H (21.0-31.0) mmol/L Anion Gap 8.5 BUN 12 (7-18) mg/dL Creatinine 0.5 L (0.6-1.3) mg/dL Est Cr Clr Drug Dosing 76.71 mL/min Estimated GFR (MDRD) > 60 BUN/Creatinine Ratio 24.00 Glucose 190 H (74-105) mg/dL Calcium 8.9 (8.4-10.2) mg/dl Total Bilirubin 0.5 (0.2-1.0) mg/dL AST 20 (10-42) IU/L ALT 11 (10-60) IU/L Alkaline Phosphatase 81 (42-121) IU/L Troponin I < 0.02 (0.00-0.02) ng/ml Total Protein 6.7 (6.7-8.2) g/dl Albumin 3.5 (3.2-5.5) g/dl Globulin 3.2 Albumin/Globulin Ratio 1.09 Urine Color Yellow (YELLOW) Urine Appearance Clear (CLEAR) Urine pH 8.5 (5.0-9.0) Ur Specific [place] 1.015 (1.005-1.030) Urine Protein Negative (NEGATIVE) Urine Glucose (UA) Negative (NEGATIVE) Urine Ketones Negative (NEGATIVE) Urine Occult Blood Negative (NEGATIVE) Urine Nitrite Negative (NEGATIVE) Urine Bilirubin Negative (NEGATIVE) Urine Urobilinogen 0.2 (0.2-1.0) mg/dL Ur Leukocyte Esterase Negative (NEGATIVE) Urine RBC Not seen /HPF Urine WBC 0-5 (0-5/HPF) /HPF Ur Epithelial Cells Rare /HPF Urine Bacteria Not seen (0-FEW/HPF) /HPF Urine Mucus Rare /LPF - Re-Assessments/Exams Free Text/Narrative Re-Assessment/Exam: 03/16/18 09:55 The patient was advised of the lab results. Once the x-ray results are received , the patient will be notified of those results also. 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 The patient was given an HARSHAD wrap for support and compression of her left knee. The patient was encouraged to continue to take her medications as prescribed. If the patient has any additional symptoms or concerns, the patient should follow-up with her primary care facility or return to the emergency department. - My Orders Last 24 Hours: My Active Orders 03/16/18 08:53 EKG Documentation Completion [RC] URGENT 03/16/18 09:17 UA W/MICROSCOPIC [URIN] Stat - Assessment/Plan Last 24 Hours: My Active Orders 03/16/18 08:53 EKG Documentation Completion [RC] URGENT 03/16/18 09:17 UA W/MICROSCOPIC [URIN] Stat
[2018-03-16 09:33] LABS: ANION GAP 8.5; CHLORIDE,CL 100 mmol/L (101-111); SODIUM,NA 139 mmol/L (135-145)
--- NOTE | 2018-03-16 09:56 | CR ---
CLINICAL HISTORY: 77-year-old female with left knee pain. INTERPRETATION: Abnormal. Soft tissue swelling and underlying patellar bursal effusion left knee. Chronic severe reactive arthr itic changes involving the knee and patellofemoral joints, i.e., dense reactive sclerosis and hypertr ophic spur formation. No sign of pathologic skeletal lesion, acute fracture or dislocation left knee. CONCLUSION: Chronic severe degenerative destructive arthritic changes left knee as noted on previous 02 February 2017 exam. No new fracture. Hypertrophic marginal spur formation.
--- NOTE | 2018-03-16 09:57 | CR ---
CLINICAL HISTORY: 77-year-old female complaining of generalized "weakness". INTERPRETATION: Severely rotated PA chest distorts the appearance of the mediastinal structures but n o new signs of heart failure, lung mass or focal lobar pneumonia when compared to 17 December 2016 AP fi lm. No atelectasis/collapse. No pneumothorax.
== END 2018-03-16 10:21 | disposition home or self-care (01) ==
LOC: DL.ED 08:46
DX: M17.32 Unilateral post-traumatic osteoarthritis, left knee (principal); I10 Essential (primary) hypertension; E03.9 Hypothyroidism, unspecified; Z88.2 Allergy status to sulfonamides; Z88.8 Allergy status to other drugs, medicaments and biological substances; Z79.899 Other long term (current) drug therapy; Z87.891 Personal history of nicotine dependence
CPT/HCPCS: 36415; 71045; 73562-LT; 80053; 81001; 84484; 85025; 93005; 93010; 99284

== ENCOUNTER 2018-05-22 08:54 | Emergency (ER) | payer MEDICARE, OTHER ==
[2018-05-22 09:04] VITALS: BP 151/79
--- NOTE | 2018-05-22 09:17 | EDM.PDOC ---
ED HPI GENERAL MEDICAL PROBLEM - General Chief Complaint: Lower Extremity Injury/Pain Stated Complaint: IN BY AMBULANCE Time Seen by Provider: 05/22/18 09:00 Source of Information: Reports: Patient History Limitations: Reports: No Limitations - History of Present Illness INITIAL COMMENTS - FREE TEXT/NARRATIVE: This 77 yo female patient was brought to the ED by [facility] due to a ground level fall. The patient reports pain in her right neck, right shoulder and right hip. The patient reports she has been having difficulties with her left knee giving out causing her to be unstable. The patient reports that she has been using her walker all weekend to to the left knee giving her problems. The patient does not recall having any loss of consciousness before, during or after the fall. The patient reports that she was not able to catch herself today when she was in the bathroom and fell. The patient reports that she fell very hard to the floor. The patient reports that she does have chronic pain in her right shoulder , but that the pain may be increased after the fall. The patient reports right sided neck pain when she moves her neck. Onset: Today Duration: Minutes:, Constant Location: Reports: Neck (right lateral neck), Upper Extremity, Right (shoulder ( acute on chronic)), Lower Extremity, Right (hip) Quality: Reports: Ache, Dull Severity: Moderate Improves with: Reports: Rest Worsens with: Reports: Movement Context: Reports: Trauma (ground level fall) Right Hip Pain Score (Numeric/FACES): 9 Right Neck Pain Score (Numeric/FACES): 6 - Related Data Allergies Allergy/AdvReac Type Severity Reaction Status Date / Time adhesive tape Allergy Cannot Verified 05/22/18 09:04 Remember lactose Allergy Diarrhea Verified 05/22/18 09:04 meperidine HCl [From Demerol] Allergy UNKNOWN Verified 05/22/18 09:04 niacin Allergy UNKNOWN Verified 05/22/18 09:04 Sulfa (Sulfonamide Allergy Cannot Verified 05/22/18 09:04 Antibiotics) Remember Home Meds: Home Meds Levothyroxine Sodium 112 mcg PO DAILY 01/15/14 [History] metFORMIN [Glucophage] 500 mg PO BID 01/15/14 [History] Aspirin [Ecotrin] 81 mg PO DAILY 02/26/14 [History] Lisinopril [Zestril] 20 mg PO DAILY 02/26/14 [History] Loperamide [Imodium] 2 mg PO Q4H PRN #1 box 02/26/14 [Rx] Sertraline [Zoloft] 150 mg PO DAILY 02/26/14 [History] Morphine Sulfate [Morphine Sulfate ER] 45 mg PO BID 12/17/16 [History] Vit A/C/E AC/Znox/Cupric Oxide [Eye Vitamin-Minerals Tablet] 1 tab PO ASDIRECTED 12/17/16 [History] oxyCODONE HCl/Acetaminophen [Endocet 10-325 mg Tablet] 1 tab PO TID PRN [History] Ca/D3/Mag#11/Zinc/Video Arcade Manager/Gene/Bor [Caltrate 600+D Plus Tablet] 1 tab PO DAILY 06/27 [History] Atropine 1% [Isopto Atropine 1% Ophth Soln] 1 drop EYERT DAILY 12/19/17 [History ] Beta-Carotene(A) W-C & E/Min [Vision Vitamins] 1 each PO DAILY 12/19/17 [History ] Brimonidine Tartrate/Timolol [Combigan 0.2%-0.5% Eye Drops] 1 drop EYERT BID [History] Cholecalciferol (Vitamin D3) [Vitamin D3] 5,000 unit PO DAILY 12/19/17 [History] Latanoprost [Xalatan 0.005% Ophth Soln] 2.5 ml EYERT BEDTIME 12/19/17 [History] Magnesium Oxide [Magnesium] 400 mg PO DAILY 12/19/17 [History] Nitroglycerin 0.4 mg SL .Q5MIN X3 PRN 12/19/17 [History] diphenhydrAMINE [Benadryl] 25 mg PO Q8HR PRN 12/19/17 [History] Potassium Chloride 20 meq PO DAILY 3 Days #3 tablet.er 12/20/17 [Rx] cephALEXin [Keflex] 500 mg PO TID #15 cap 12/20/17 [Rx] Past Medical History HEENT History: Reports: Hard of Hearing, Impaired Vision Cardiovascular History: Reports: CAD, Hypertension Other Cardiovascular History: has had strokes Respiratory History: Reports: None Gastrointestinal History: Reports: Chronic Diarrhea Genitourinary History: Reports: Urinary Incontinence Other Genitourinary History: freguency CARRIAGE RIDER History: Reports: None Musculoskeletal History: Reports: Fracture, Osteoarthritis, RA Other Musculoskeletal History: bursitis Neurological History: Reports: Neuropathy, Diabetic Psychiatric History: Reports: Depression Endocrine/Metabolic History: Reports: Hypothyroidism Hematologic History: Reports: None Immunologic History: Reports: None Oncologic (Cancer) History: Reports: None Dermatologic History: Reports: Other (See Below) Other Dermatologic History: 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 - Infectious Disease History Infectious Disease History: Reports: Chicken Pox, Measles - Past Surgical History Head Surgeries/Procedures: Reports: None HEENT Surgical History: Reports: Cataract Surgery Neurological Surgical History: Reports: Other (See Below) Musculoskeletal Surgical History: Reports: Hip Replacement, ORIF Social & Family History - Family History Family Medical History: Noncontributory HEENT: Reports: None OBGYN: Reports: None Psychiatric: Reports: None Endocrine/Metabolic: Reports: Diabetes, type II Other Oncologic Family History: unsure of type - Caffeine Use Caffeine Use: Reports: Coffee, Tea - Living Situation & Occupation Living situation: Reports: Single, , Alone Occupation: Retired Review of Systems - Review of Systems Review Of Systems: ROS reveals no pertinent complaints other than HPI. ED EXAM, GENERAL - Physical Exam Exam: See Below Exam Limited By: No Limitations General Appearance: Alert, WD/WN, Moderate Distress, Thin Eye Exam: Bilateral Eye: EOMI, Normal Inspection, PERRL Ears: Normal External Exam, Hearing Grossly Normal (with hearing aids), Other ( bilateral hearing aids) Nose: Normal Inspection, Normal Mucosa, No Blood Throat/Mouth: Normal Inspection, Normal Lips, Normal Teeth, Normal Gums, Normal Oropharynx, Normal Voice, No Airway Compromise Head: Atraumatic, Normocephalic Neck: Normal Inspection, Supple, Limited Range of Motion (due to right sided pain), Tender Lateral (right side ) Respiratory/Chest: No Respiratory Distress, Lungs Clear, Normal Breath Sounds, No Accessory Muscle Use, Chest Non-Tender Cardiovascular: Normal Peripheral Pulses, Regular Rate, Rhythm, No Edema, No Gallop, No JVD, No Murmur, No Rub GI/Abdominal: Normal Bowel Sounds, Soft, Non-Tender, No Organomegaly, No Distention, No Abnormal Bruit, No Mass (Female) Exam: Deferred Rectal (Female) Exam: Deferred Back Exam: Normal Inspection, Full Range of Motion, NT Extremities: Arm Pain (right shoulder pain (acute on chronic). The patient reports increased pain with abduction of the right arm at the shoulder) Neurological: Alert, Oriented, CN II-XII Intact, Normal Cognition Psychiatric: Normal Affect, Normal Mood Skin Exam: Other (numerous bruises in different stages of healing. The patient reports bruising ) Lymphatic: No Adenopathy Course - Vital Signs Last Recorded V/S: Last Vital Signs Temp 36.6 C 05/22/18 08:54 Pulse 83 05/22/18 08:54 Resp 18 05/22/18 08:54 BP 151/79 H 05/22/18 08:54 Pulse Ox 100 05/22/18 08:54 - Orders/Labs/Meds Orders: Active Orders 24 hr Category Date Time Status EKG Documentation Completion [RC] URGENT Care 05/22/18 09:09 Active Glucose [Blood Glucose Check, Bedside] [RC] ONETIME Care 05/22/18 09:09 Active UA W/MICROSCOPIC [URIN] Stat Lab 05/22/18 09:09 Ordered Labs: Laboratory Tests 05/22/18 05/22/18 05/22/18 Range/Units 09:23 09:24 09:24 WBC 3.2 L (5.0-10.0) 10^3/uL RBC 3.92 L (4.2-5.4) 10^6/uL Hgb 11.2 L (12.0-16.0) g/dL Hct 34.8 L (37.0-47.0) % MCV 88.8 (80-100) fL MCH 28.6 (27.0-34.0) pg MCHC 32.2 L (33.0-35.0) g/dL Plt Count 122 L (150-450) 10^3/uL Neut % (Auto) 64.6 (42.2-75.2) % Lymph % (Auto) 21.8 (20.5-50.1) % [place] % (Auto) 10.1 H (2-8) % Eos % (Auto) 3.2 H (1.0-3.0) % Baso % (Auto) 0.3 (0.0-1.0) % Sodium 137 (135-145) mmol/L Potassium 3.7 (3.6-5.0) mmol/L Chloride 97 L (101-111) mmol/L Carbon Dioxide 28.0 (21.0-31.0) mmol/L Anion Gap 15.7 BUN 14 (7-18) mg/dL Creatinine 0.4 L (0.6-1.3) mg/dL Est Cr Clr Drug Dosing 95.88 mL/min Estimated GFR (MDRD) > 60 BUN/Creatinine Ratio 35.00 Glucose 167 H (74-105) mg/dL POC Glucose 167 H (83-110) mg/dl Calcium 8.8 (8.4-10.2) mg/dl Total Bilirubin 0.7 (0.2-1.0) mg/dL AST 23 (10-42) IU/L ALT 12 (10-60) IU/L Alkaline Phosphatase 77 (42-121) IU/L Troponin I < 0.02 (0.00-0.02) ng/ml Total Protein 6.8 (6.7-8.2) g/dl Albumin 3.6 (3.2-5.5) g/dl Globulin 3.2 Albumin/Globulin Ratio 1.13 Departure - Departure Time of Disposition: 10:24 Disposition: Home, Self-Care 01 Condition: Fair Clinical Impression: Fall from ground level, Right hip pain Right shoulder pain Qualifiers: Chronicity: chronic Qualified Code(s): M25.511 - Pain in right shoulder; G89.29 - Other chronic pain Neck muscle strain Qualifiers: Encounter type: initial encounter Qualified Code(s): S16.1XXA - Strain of muscle, fascia and tendon at neck level, initial encounter - Discharge Information *PRESCRIPTION DRUG MONITORING PROGRAM REVIEWED*: Not Applicable *COPY OF PRESCRIPTION DRUG MONITORING REPORT IN PATIENT PRESTON: Not Applicable Instructions: Shoulder Pain, [id number], Muscle Strain, [id number] Forms: ED Department Discharge Care Plan Goals: The patient was advised of the examination, lab, EKG, x-ray and CT results during the visit. The patient was encouraged to use her walker for support. The patient should follow-up with her primary care facility for any additional symptoms or concerns. If the patient has any additional symptoms or concerns, the patient should follow-up with her primary care facility or return to the emergency department. - My Orders Last 24 Hours: My Active Orders 05/22/18 09:09 EKG Documentation Completion [RC] URGENT Glucose [Blood Glucose Check, Bedside] [RC] ONETIME UA W/MICROSCOPIC [URIN] Stat - Assessment/Plan Last 24 Hours: My Active Orders 05/22/18 09:09 EKG Documentation Completion [RC] URGENT Glucose [Blood Glucose Check, Bedside] [RC] ONETIME UA W/MICROSCOPIC [URIN] Stat
[2018-05-22 09:56] LABS: ANION GAP 15.7; CHLORIDE,CL 97 mmol/L (101-111); SODIUM,NA 137 mmol/L (135-145)
--- NOTE | 2018-05-22 10:02 | CR ---
Clinical history: 77-year-old female injured in ground-level fall. Interpretation: Femoral component total right hip prosthesis seated in the proximal right femoral sha ft has prominent lucent interface screen the methylmethacrylate and bone suggesting "loosening" which is unchanged since 14 November 2017. No new evidence right hip fracture or dislocation and abnormal impaction femoral component of the pro sthesis high in the ipsilateral pelvis is unchanged. CONCLUSION: No acute fracture.
--- NOTE | 2018-05-22 10:03 | CR ---
Clinical history: 77-year-old female injured in ground-level fall. Interpretation: Several old posterior lateral right rib fractures lung apex. Chronic severe degenerative destructive arthritic changes right humeral head and glenohumeral joint. No sign of acute right shoulder fracture, acromioclavicular separation or glenohumeral dislocation.
--- NOTE | 2018-05-22 10:10 | CT ---
CLINICAL HISTORY: 77-year-old female injured in ground-level fall. SCAN TECHNIQUE: Volume acquisition of data from an emergency unenhanced CT scan of the cervical spine obtained while this elderly patient was lying supine on the Siemens multislice scanner [place], [place]. All data archived in the PACS system for storage, reformatting ax ial/sagittal/coronal planes and study. INTERPRETATION: Exaggerated cervical lordosis; osteoporosis; and some mild sclerosis posterior articulating facets, u pper cervical spine. No sign of prevertebral soft tissue swelling, cervical fracture, spondylolisthesis or jumped locked f acet. Anterior fusion (ankylosis) of the T2-3 and T4-5 upper dorsal spine. CONCLUSION: No acute cervical spine fracture.
== END 2018-05-22 11:02 | disposition home or self-care (01) ==
LOC: DL.ED 08:54
DX: S16.1XXA Strain of muscle, fascia and tendon at neck level, initial encounter (principal); M25.511 Pain in right shoulder; G89.29 Other chronic pain; M25.551 Pain in right hip; I10 Essential (primary) hypertension; E11.40 Type 2 diabetes mellitus with diabetic neuropathy, unspecified; Z88.2 Allergy status to sulfonamides; Z91.09 Other allergy status, other than to drugs and biological substances; Z88.8 Allergy status to other drugs, medicaments and biological substances; Z79.82 Long term (current) use of aspirin; Z79.899 Other long term (current) drug therapy; W01.0XXA Fall on same level from slipping, tripping and stumbling without subsequent striking against object, initial encounter
CPT/HCPCS: 36415; 72125; 73030-RT; 80053; 82962; 84484; 85025; 93005; 99284; 99285

== ENCOUNTER 2020-03-30 12:03 | Observation (INO) | payer MEDICARE, OTHER ==
[2020-03-30 13:13] LABS: ANION GAP 9.6 mEq/L (7-13); CHLORIDE,CL 99 mmol/L (98-107); SODIUM,NA 138 mmol/L (136-145)
--- NOTE | 2020-03-30 14:21 | EDM.PDOC ---
Scribed by Taniya Brice 03/30/20 1421 for Jackie Mantilla MD ED HPI GENERAL MEDICAL PROBLEM - General Chief Complaint: General Stated Complaint: AMBULANCE Time Seen by Provider: 03/30/20 12:10 Source of Information: Reports: Patient, EMS, EMS Notes Reviewed, RN, RN Notes Reviewed History Limitations: Reports: No Limitations - History of Present Illness INITIAL COMMENTS - FREE TEXT/NARRATIVE: Patient arrives to ED by [facility]. Patient states her Home Health nurse came to check on her. Her blood pressure was high as well as blood sugar. She does not feel well. She has been on antibiotics for 2 days for cellulitis. This started 2 days ago. She states she has chills and goes to the bathroom every 5 minutes. When she urinates she has burning. She has had no fever. She has nausea but no vomiting. She does have fatigue and abdominal pain and states it is an 8/10. Onset: Gradual Duration: Getting Worse Location: Reports: Generalized Quality: Reports: Ache Severity: Moderate Improves with: Reports: None Worsens with: Reports: None Associated Symptoms: Reports: No Other Symptoms - Related Data Allergies Allergy/AdvReac Type Severity Reaction Status Date / Time adhesive tape Allergy Cannot Verified 03/30/20 12:26 Remember esomeprazole Allergy Other Verified 03/30/20 12:31 lactose Allergy Diarrhea Verified 03/30/20 12:26 meperidine HCl [From Demerol] Allergy UNKNOWN Verified 03/30/20 12:26 niacin Allergy UNKNOWN Verified 03/30/20 12:26 nitrofurantoin Allergy Other Verified 03/30/20 12:31 Sulfa (Sulfonamide Allergy Cannot Verified 03/30/20 12:26 Antibiotics) Remember Home Meds: Home Meds Levothyroxine Sodium 150 mcg PO DAILY 01/15/14 [History] Aspirin [Ecotrin EC] 81 mg PO DAILY 02/26/14 [History] Lisinopril [Zestril] 20 mg PO DAILY 02/26/14 [History] Loperamide [Imodium] 2 mg PO Q4H PRN #1 box 02/26/14 [Rx] Sertraline [Zoloft] 200 mg PO DAILY 02/26/14 [History] Morphine Sulfate [Morphine Sulfate ER] 45 mg PO BID 12/17/16 [History] Jovany/D3/Mag11/Zinc/Magistrate Judge/Gene/Bor [Caltrate 600+D Plus Tablet] 1 tab PO DAILY 06/27/17 [History] Beta-Carotene(A)-Vits C,E/Mins [Vision Vitamins] 1 each PO DAILY 12/19/17 [History] Cholecalciferol (Vitamin D3) [Vitamin D3] 5,000 unit PO DAILY 12/19/17 [History] Latanoprost [Xalatan 0.005% Ophth Soln] 2.5 ml EYERT BEDTIME 12/19/17 [History] Magnesium Oxide [Magnesium] 800 mg PO DAILY 12/19/17 [History] Nitroglycerin 0.4 mg SL .Q5MIN X3 PRN 12/19/17 [History] diphenhydrAMINE [Benadryl] 25 mg PO Q8HR PRN 12/19/17 [History] B-Complex with Vitamin C [Super B Complex-Vitamin C] 1 tab PO DAILY 03/30/20 [History] Folic Acid 1 mg PO DAILY 03/30/20 [History] Hydrocodone/Acetaminophen [Hydrocodone-Acetamin 10-325 mg] 1 tab PO Q8HR PRN 03/30/20 [History] L Acidophil/B Lactis/B Longum [Florajen3] 1 cap PO DAILY 03/30/20 [History] Pantoprazole [ProTONIX] 40 mg PO DAILY 03/30/20 [History] Past Medical History HEENT History: Reports: Hard of Hearing, Impaired Vision Other HEENT History: wears glasses Cardiovascular History: Reports: CAD, Hypertension Other Cardiovascular History: has had strokes Respiratory History: Reports: None Gastrointestinal History: Reports: Chronic Diarrhea Genitourinary History: Reports: Urinary Incontinence Other Genitourinary History: freguency POLE CUTTER History: Reports: None Musculoskeletal History: Reports: Fracture, Osteoarthritis, RA Other Musculoskeletal History: bursitis Neurological History: Reports: Neuropathy, Diabetic Psychiatric History: Reports: Depression Endocrine/Metabolic History: Reports: Diabetes, Type II, Hypothyroidism Hematologic History: Reports: None Immunologic History: Reports: None Oncologic (Cancer) History: Reports: None Dermatologic History: Reports: Other (See Below) Other Dermatologic History: 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 - Infectious Disease History Infectious Disease History: Reports: Chicken Pox, Measles - Past Surgical History Head Surgeries/Procedures: Reports: None HEENT Surgical History: Reports: Cataract Surgery Musculoskeletal Surgical History: Reports: Hip Replacement, ORIF Social & Family History - Family History Family Medical History: Noncontributory HEENT: Reports: None OBGYN: Reports: None Psychiatric: Reports: None Endocrine/Metabolic: Reports: Diabetes, type II Other Oncologic Family History: unsure of type - Caffeine Use Caffeine Use: Reports: Coffee, Tea - Living Situation & Occupation Living situation: Reports: Single, , Alone Occupation: Retired ED ROS GENERAL - Review of Systems Review Of Systems: Comprehensive ROS is negative, except as noted in HPI. ED EXAM, GENERAL - Physical Exam Exam: See Below Exam Limited By: Other (hard of hearing) General Appearance: Alert Head: Atraumatic, Normocephalic Neck: Normal Inspection Respiratory/Chest: No Respiratory Distress, Lungs Clear, Normal Breath Sounds, No Accessory Muscle Use, Chest Non-Tender Cardiovascular: Normal Peripheral Pulses, Regular Rate, Rhythm, No Edema, No Gallop, No JVD, No Murmur, No Rub GI/Abdominal: Other (Suprapubic tenderness). No: Guarding, Rebound Neurological: Alert Psychiatric: Normal Affect, Normal Mood Skin Exam: Other (mild erythema bilateral lower extremities. No induration or fluctuance. ) Course - Vital Signs Last Recorded V/S: Last Vital Signs Temp 97.9 F 03/30/20 12:09 Pulse 82 03/30/20 12:09 Resp 16 03/30/20 12:09 BP 174/72 H 03/30/20 12:09 Pulse Ox 99 03/30/20 12:09 - Orders/Labs/Meds Orders: Active Orders 24 hr Category Date Time Status EKG 12 Lead [EKG Documentation Completion] [RC] STAT Care 03/30/20 12:21 Active Labs: Laboratory Tests 03/30/20 03/30/20 03/30/20 Range/Units 12:36 12:49 12:49 WBC 3.4 L (5.0-10.0) 10^3/uL RBC 3.89 L (4.2-5.4) 10^6/uL Hgb 11.4 L (12.0-16.0) g/dL Hct 34.6 L (37.0-47.0) % MCV 88.9 (80-100) fL MCH 29.3 (27.0-34.0) pg MCHC 32.9 L (33.0-35.0) g/dL Plt Count 119 L (150-450) 10^3/uL Neut % (Auto) 72.5 (42.2-75.2) % Lymph % (Auto) 15.5 L (20.5-50.1) % [place] % (Auto) 10.8 H (2-8) % Eos % (Auto) 0.9 L (1.0-3.0) % Baso % (Auto) 0.3 (0.0-1.0) % Sodium 138 (136-145) mmol/L Potassium 3.6 (3.5-5.1) mmol/L Chloride 99 (98-107) mmol/L Carbon Dioxide 33 H (21-32) mmol/L Anion Gap 9.6 (7-13) mEq/L BUN 17 (7-18) mg/dL Creatinine 0.67 (0.55-1.02) mg/dL Est Cr Clr Drug Dosing 55.40 mL/min Estimated GFR (MDRD) > 60 BUN/Creatinine Ratio 25.4 (No establ ref range) Glucose 145 H (74-99) mg/dL Calcium 8.8 (8.5-10.1) mg/dL Total Bilirubin 0.8 (0.2-1.0) mg/dL AST 19 (15-37) U/L ALT 18 (14-59) U/L Alkaline Phosphatase 89 (46-116) U/L Total Protein 7.3 (6.4-8.2) g/dL Albumin 3.7 (3.4-5.0) g/dL Globulin 3.6 Albumin/Globulin Ratio 1.0 Urine Color Yellow (YELLOW) Urine Appearance Slightly cloudy (CLEAR) Urine pH 7.5 (5.0-9.0) Ur Specific [place] >= 1.030 (1.005-1.030) Urine Protein Negative (NEGATIVE) Urine Glucose (UA) Negative (NEGATIVE) Urine Ketones Negative (NEGATIVE) Urine Occult Blood Trace-intact H (NEGATIVE) Urine Nitrite Negative (NEGATIVE) Urine Bilirubin Negative (NEGATIVE) Urine Urobilinogen 0.2 (0.2-1.0) mg/dL Ur Leukocyte Esterase Negative (NEGATIVE) Urine RBC 10-20 H /HPF Urine WBC 0-5 (0-5/HPF) /HPF Ur Epithelial Cells Rare (NOT SEEN) /HPF Urine Bacteria Rare (0-FEW/HPF) /HPF Urine Mucus Few H (NOT SEEN) /LPF Departure - Departure Time of Disposition: 13:48 (Dr. Brewster) Disposition: Refer to Observation Condition: Poor Clinical Impression: Weakness - Discharge Information *PRESCRIPTION DRUG MONITORING PROGRAM REVIEWED*: Not Applicable *COPY OF PRESCRIPTION DRUG MONITORING REPORT IN PATIENT PRESTON: Not Applicable Sepsis Event Note (ED) - Focused Exam Vital Signs: Vital Signs Temp Pulse Resp BP Pulse Ox 03/30/20 12:09 97.9 F 82 16 174/72 H 99 - My Orders Last 24 Hours: My Active Orders 03/30/20 12:21 EKG 12 Lead [EKG Documentation Completion] [RC] STAT - Assessment/Plan Last 24 Hours: My Active Orders 03/30/20 12:21 EKG 12 Lead [EKG Documentation Completion] [RC] STAT I have read and agree with the documentation that has been completed regarding this visit. By signing this record, I attest that the documentation was completed in my physical presence and is an accurate record of the encounter.
[2020-03-30] MEDS ORDERED: Ondansetron 4 MG/2 ML SDV IVPUSH PRN (14:50)
[2020-03-30] MEDS ORDERED: Temazepam 15 MG Cap PO PRN (14:50)
[2020-03-30] MEDS ORDERED: Ondansetron 4 MG Tab.DIS PO PRN (14:50)
[2020-03-30] MEDS ORDERED: Acetaminophen 325 MG Tab PO PRN (14:50)
[2020-03-30] MEDS ORDERED: diphenhydrAMINE 25 MG Tab PO PRN (14:52)
--- NOTE | 2020-03-30 15:27 | PCM.HP ---
H&P History of Present Illness - General Date of Service: 03/30/20 Admit Problem/Dx: Admission Diagnosis/Problem Admission Diagnosis/Problem Weakness Source of Information: Patient - History of Present Illness Initial Comments - Free Text/Narative: 79-year-old lady with a history of chronic pain, orchitis, hypertension. The patient has been living alone. Has a home care and visiting nurse. The patient was sent to the emergency room when the visiting nurse noticed that she is getting weaker, difficulty getting out of bed. She was complaining of urinary frequency, chills. In the past few weeks the patient was treated repeatedly with doxycycline for lower extremity cellulitis. Obtaining information is difficult due to very poor hearing and sometimes it's unclear what exactly the patient is answering to when I asked. If she heard, understood the question or not. No apparent chest pain To me she denies abdominal pain although apparently this was a question in the emergency room that she answered yes. No chest pain Complaining of shaking. No fever. The pressure was reported high in the 180s at the home care nurse, blood sugars were in the 130s to 160 range. - Related Data Allergies/Adverse Reactions: Allergies Allergy/AdvReac Type Severity Reaction Status Date / Time adhesive tape Allergy Cannot Verified 03/30/20 12:26 Remember esomeprazole Allergy Other Verified 03/30/20 12:31 lactose Allergy Diarrhea Verified 03/30/20 12:26 meperidine HCl [From Demerol] Allergy UNKNOWN Verified 03/30/20 12:26 niacin Allergy UNKNOWN Verified 03/30/20 12:26 nitrofurantoin Allergy Other Verified 03/30/20 12:31 Sulfa (Sulfonamide Allergy Cannot Verified 03/30/20 12:26 Antibiotics) Remember Home Medications: Home Meds Levothyroxine Sodium 150 mcg PO DAILY 01/15/14 [History] Aspirin [Ecotrin EC] 81 mg PO DAILY 02/26/14 [History] Lisinopril [Zestril] 20 mg PO DAILY 02/26/14 [History] Loperamide [Imodium] 2 mg PO Q4H PRN #1 box 02/26/14 [Rx] Sertraline [Zoloft] 200 mg PO DAILY 02/26/14 [History] Morphine Sulfate [Morphine Sulfate ER] 45 mg PO BID 12/17/16 [History] Jovany/D3/Mag11/Zinc/Ship Fastener/Gene/Bor [Caltrate 600+D Plus Tablet] 1 tab PO DAILY 06/27/17 [History] Beta-Carotene(A)-Vits C,E/Mins [Vision Vitamins] 1 each PO DAILY 12/19/17 [History] Cholecalciferol (Vitamin D3) [Vitamin D3] 5,000 unit PO DAILY 12/19/17 [History] Latanoprost [Xalatan 0.005% Ophth Soln] 2.5 ml EYERT BEDTIME 12/19/17 [History] Magnesium Oxide [Magnesium] 800 mg PO DAILY 12/19/17 [History] Nitroglycerin 0.4 mg SL .Q5MIN X3 PRN 12/19/17 [History] diphenhydrAMINE [Benadryl] 25 mg PO Q8HR PRN 12/19/17 [History] B-Complex with Vitamin C [Super B Complex-Vitamin C] 1 tab PO DAILY 03/30/20 [History] Folic Acid 1 mg PO DAILY 03/30/20 [History] Hydrocodone/Acetaminophen [Hydrocodone-Acetamin 10-325 mg] 1 tab PO Q8HR PRN 03/30/20 [History] L Acidophil/B Lactis/B Longum [Florajen3] 1 cap PO DAILY 03/30/20 [History] Pantoprazole [ProTONIX] 40 mg PO DAILY 03/30/20 [History] Past Medical History HEENT History: Reports: Hard of Hearing, Impaired Vision Other HEENT History: wears glasses Cardiovascular History: Reports: CAD, Hypertension Other Cardiovascular History: has had strokes Respiratory History: Reports: None Gastrointestinal History: Reports: Chronic Diarrhea Genitourinary History: Reports: Urinary Incontinence Other Genitourinary History: freguency APRON CLEANER History: Reports: None Musculoskeletal History: Reports: Fracture, Osteoarthritis, RA Other Musculoskeletal History: bursitis Neurological History: Reports: Neuropathy, Diabetic Psychiatric History: Reports: Depression Endocrine/Metabolic History: Reports: Diabetes, Type II, Hypothyroidism Hematologic History: Reports: None Immunologic History: Reports: None Oncologic (Cancer) History: Reports: None Dermatologic History: Reports: Other (See Below) Other Dermatologic History: 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 - Infectious Disease History Infectious Disease History: Reports: Chicken Pox, Measles - Past Surgical History Head Surgeries/Procedures: Reports: None HEENT Surgical History: Reports: Cataract Surgery Musculoskeletal Surgical History: Reports: Hip Replacement, ORIF Social & Family History - Family History Family Medical History: Noncontributory HEENT: Reports: None OBGYN: Reports: None Psychiatric: Reports: None Endocrine/Metabolic: Reports: Diabetes, type II Other Oncologic Family History: unsure of type - Tobacco Use Smoking Status *Q: Former Smoker Years of Tobacco use: 20 Packs/Tins Daily: 3 Used Tobacco, but Quit: Yes Month/Year Tobacco Last Used: august Second Hand Smoke Exposure: No - Caffeine Use Caffeine Use: Reports: Coffee, Tea - Recreational Drug Use Recreational Drug Use: No - Living Situation & Occupation Living situation: Reports: Single, , Alone Occupation: Retired H&P Review of Systems - Review of Systems: Review Of Systems: See Below General: Reports: Chills, Malaise, Weakness. Denies: Fever Pulmonary: Denies: Shortness of Breath Cardiovascular: Denies: Chest Pain, Edema Genitourinary: Reports: Frequency. Denies: Dysuria Psychiatric: Denies: Confusion Neurological: Denies: Dizziness Exam - Exam Exam: See Below - Vital Signs Vital Signs: Last Vital Signs Temp 97.9 F 03/30/20 12:09 Pulse 82 03/30/20 12:09 Resp 16 03/30/20 12:09 BP 174/72 H 03/30/20 12:09 Pulse Ox 99 03/30/20 12:09 Weight: 143 lb 6.4 oz - Exam General: Alert, Oriented Neck: Supple Lungs: Clear to Auscultation, Normal Respiratory Effort Cardiovascular: Regular Rate, Regular Rhythm GI/Abdominal Exam: Normal Bowel Sounds, Soft, Non-Tender Extremities: Pedal Edema (Trace bilateral) Skin: Warm, Other (Chronic appearing bilateral lower extremity discoloration, brownish) - Patient Data Lab Results Last 24 hrs: Laboratory Results - last 24 hr 03/30/20 03/30/20 03/30/20 Range/Units 12:36 12:49 12:49 WBC 3.4 L (5.0-10.0) 10^3/uL RBC 3.89 L (4.2-5.4) 10^6/uL Hgb 11.4 L (12.0-16.0) g/dL Hct 34.6 L (37.0-47.0) % MCV 88.9 (80-100) fL MCH 29.3 (27.0-34.0) pg MCHC 32.9 L (33.0-35.0) g/dL Plt Count 119 L (150-450) 10^3/uL Neut % (Auto) 72.5 (42.2-75.2) % Lymph % (Auto) 15.5 L (20.5-50.1) % [place] % (Auto) 10.8 H (2-8) % Eos % (Auto) 0.9 L (1.0-3.0) % Baso % (Auto) 0.3 (0.0-1.0) % Sodium 138 (136-145) mmol/L Potassium 3.6 (3.5-5.1) mmol/L Chloride 99 (98-107) mmol/L Carbon Dioxide 33 H (21-32) mmol/L Anion Gap 9.6 (7-13) mEq/L BUN 17 (7-18) mg/dL Creatinine 0.67 (0.55-1.02) mg/dL Est Cr Clr Drug Dosing 55.40 mL/min Estimated GFR (MDRD) > 60 BUN/Creatinine Ratio 25.4 (No establ ref range) Glucose 145 H (74-99) mg/dL Calcium 8.8 (8.5-10.1) mg/dL Total Bilirubin 0.8 (0.2-1.0) mg/dL AST 19 (15-37) U/L ALT 18 (14-59) U/L Alkaline Phosphatase 89 (46-116) U/L Total Protein 7.3 (6.4-8.2) g/dL Albumin 3.7 (3.4-5.0) g/dL Globulin 3.6 Albumin/Globulin Ratio 1.0 Urine Color Yellow (YELLOW) Urine Appearance Slightly cloudy (CLEAR) Urine pH 7.5 (5.0-9.0) Ur Specific [place] >= 1.030 (1.005-1.030) Urine Protein Negative (NEGATIVE) Urine Glucose (UA) Negative (NEGATIVE) Urine Ketones Negative (NEGATIVE) Urine Occult Blood Trace-intact H (NEGATIVE) Urine Nitrite Negative (NEGATIVE) Urine Bilirubin Negative (NEGATIVE) Urine Urobilinogen 0.2 (0.2-1.0) mg/dL Ur Leukocyte Esterase Negative (NEGATIVE) Urine RBC 10-20 H /HPF Urine WBC 0-5 (0-5/HPF) /HPF Ur Epithelial Cells Rare (NOT SEEN) /HPF Urine Bacteria Rare (0-FEW/HPF) /HPF Urine Mucus Few H (NOT SEEN) /LPF Result Diagrams: 03/30/20 12:49 03/30/20 12:49 - Problem List (1) Hypertension SNOMED Code(s): 58807953 ICD Code: I10 - ESSENTIAL (PRIMARY) HYPERTENSION Status: Acute Current Visit: Yes (2) Weakness SNOMED Code(s): 26461630 ICD Code: R53.1 - WEAKNESS Status: Acute Current Visit: Yes (3) Arthritis SNOMED Code(s): 3853211 ICD Code: M19.90 - UNSPECIFIED OSTEOARTHRITIS, UNSPECIFIED SITE Status: Acute Current Visit: No (4) Weakness SNOMED Code(s): 61266223 ICD Code: R53.1 - WEAKNESS Status: Acute Current Visit: No (5) Arthritis SNOMED Code(s): 0551565 ICD Code: M19.90 - UNSPECIFIED OSTEOARTHRITIS, UNSPECIFIED SITE Status: Chronic Current Visit: No (6) Diabetes mellitus type 2 SNOMED Code(s): 80755858 ICD Code: E11.9 - TYPE 2 DIABETES MELLITUS WITHOUT COMPLICATIONS Status: Chronic Current Visit: No Problem List Initiated/Reviewed/Updated: Yes Orders Last 24hrs: Active Orders 24 hr Category Date Time Status Admission Diagnosis [ADT] Routine ADT 03/30/20 13:55 Ordered Admission Status [Patient Status] [ADT] Routine ADT 03/30/20 13:53 Active Antiembolic Devices [RC] PER UNIT ROUTINE Care 03/30/20 14:51 Ordered Glucose [Blood Glucose Check, Bedside] [RC] QIDACANDBED Care 03/30/20 15:01 Ordered Oxygen Therapy [RC] PRN Care 03/30/20 14:50 Ordered Up With Assistance [RC] ASDIRECTED Care 03/30/20 14:50 Ordered VTE/DVT Education [RC] PER UNIT ROUTINE Care 03/30/20 14:50 Ordered Vital Signs [RC] Q4H Care 03/30/20 14:50 Ordered OT Evaluation and Treatment [CONS] Routine Cons 03/30/20 14:51 Ordered PT Evaluation and Treatment [CONS] Routine Cons 03/30/20 14:51 Ordered Regular Diet [DIET] Diet 03/30/20 Dinner Ordered BASIC METABOLIC PANEL,BMP [CHEM] AM Lab 03/31/20 05:11 Ordered CRP [C-REACTIVE PROTEIN] [CHEM] AM Lab 03/31/20 05:11 Ordered SEDIMENTATION RATE MANUAL [HEME] AM Lab 03/31/20 05:11 Ordered Acetaminophen [Tylenol] Med 03/30/20 14:50 Ordered 650 mg PO Q4H PRN Acetaminophen/HYDROcodone [[place] 325-10 MG] Med 03/30/20 14:52 Ordered 1 tab PO Q8HR PRN Aspirin [Halfprin] Med 03/31/20 09:00 Ordered 81 mg PO DAILY Folic Acid Med 03/31/20 09:00 Ordered 1 mg PO DAILY Heparin Sodium Med 03/30/20 22:00 Ordered 5,000 units SUBCUT Q8HR Insulin Lispro [HumaLOG] Med 03/30/20 16:00 Ordered See Protocol SUBCUT ACBED Latanoprost [Xalatan 0.005% Ophth Soln] Med 03/30/20 21:00 Ordered 2.5 ml EYERT BEDTIME Levothyroxine Med 03/31/20 09:00 Ordered 150 mcg PO DAILY Magnesium Oxide [Magnesium] Med 03/31/20 09:00 Ordered 800 mg PO DAILY Morphine [MS Contin] Med 03/30/20 21:00 Ordered 45 mg PO BID Ondansetron [Zofran ODT] Med 03/30/20 14:50 Ordered 4 mg PO Q4H PRN Ondansetron [Zofran] Med 03/30/20 14:50 Ordered 4 mg IVPUSH Q6H PRN Pantoprazole [ProTONIX] Med 03/31/20 09:00 Ordered 40 mg PO DAILY Temazepam [Restoril] Med 03/30/20 14:50 Ordered 15 mg PO BEDTIME PRN diphenhydrAMINE [Benadryl] Med 03/30/20 14:52 Ordered 25 mg PO Q8HR PRN lisinopriL [Prinivil] Med 03/31/20 09:00 Ordered 20 mg PO DAILY Antiembolic Hose [OM.PC] Per Unit Routine Oth 03/30/20 14:50 Ordered Resuscitation Status Routine Resus Stat 03/30/20 15:18 Ordered Medication Orders Acetaminophen (Tylenol) 650 mg PO Q4H PRN PRN Reason: Pain (Mild 1-3)/fever Hydrocodone Bitart/Acetaminophen ([place] 325-10 Mg) 1 tab PO Q8HR PRN PRN Reason: Pain Aspirin (Halfprin) 81 mg PO DAILY [facility] Diphenhydramine HCl (Benadryl) 25 mg PO Q8HR PRN PRN Reason: Itching Folic Acid (Folic Acid) 1 mg PO DAILY [facility] Heparin Sodium (Porcine) (Heparin Sodium) 5,000 units SUBCUT Q8HR JUANA Insulin Human Lispro (Humalog) 0 unit SUBCUT ACBREAKFASTANDBED JUANA; Protocol Latanoprost (Xalatan 0.005% Ophth Soln) 2.5 ml EYERT BEDTIME JUANA Levothyroxine Sodium (Levothyroxine) 150 mcg PO DAILY JUANA Lisinopril (Prinivil) 20 mg PO DAILY [facility] Morphine Sulfate (Ms Contin) 45 mg PO BID [facility] Non-Formulary Medication (Magnesium Oxide [Magnesium]) 800 mg PO DAILY [facility] Ondansetron HCl (Zofran Odt) 4 mg PO Q4H PRN PRN Reason: nausea, able to take PO Ondansetron HCl (Zofran) 4 mg IVPUSH Q6H PRN PRN Reason: Nausea/Vomiting Pantoprazole Sodium (Protonix) 40 mg PO DAILY JUANA Temazepam (Restoril) 15 mg PO BEDTIME PRN PRN Reason: Sleep Assessment/Plan Comment:: 79-year-old with a history of diet-controlled diabetes, hypertension, recent lower extremity cellulitis treated with doxycycline The patient presented with weakness, possible chills, Lower extremity cellulitis This has been treated with the doxycycline I'm not sure if this is still present WBC is not high We'll follow for fever Obtain sedimentation rate and CRP Hold antibiotics for now Diet-controlled diabetes Follow blood sugars use supplemental insulin as needed Hypertension Uncontrolled Resume lisinopril We'll monitor and adjust as needed Chronic pain Continue long-acting morphine, hydrocodone Hypothyroidism Continue Synthroid Depression Treat with Zoloft DVT prophylaxis with subcutaneous heparin Discussed CODE STATUS with the patient She does not wish to receive CPR, we'll admit as DNR
[2020-03-30] MEDS: Insulin Lispro 100 Units/ML 3 ML Vial SUBCUT SCH ×2 (16:23→22:08)
[2020-03-30] MEDS: MORPHINE 30 MG PO SCH (20:15)
[2020-03-30] MEDS: MORPHINE 15 MG PO SCH (20:16)
[2020-03-30] MEDS ORDERED: Morphine 15 MG Tab.ER PO SCH (21:00)
[2020-03-30] MEDS ORDERED: Latanoprost 0.005% Ophth Soln 2.5 ML Bottle EYERT SCH (21:00)
[2020-03-30] MEDS: Heparin Sodium 5,000 Units/ML Vial SUBCUT SCH (21:31)
[2020-03-30] MEDS: Acetaminophen/HYDROcodone 325-10 MG Tab **OWN MED PO PRN (21:31)
[2020-03-30] MEDS ORDERED: Menthol/Methyl Salicylate 85 GM Tube TOP PRN (22:14)
[2020-03-31] MEDS: Heparin Sodium 5,000 Units/ML Vial SUBCUT SCH ×2 (05:45→14:52)
[2020-03-31 06:45] LABS: ANION GAP 8.4 mEq/L (7-13); CHLORIDE,CL 100 mmol/L (98-107); SODIUM,NA 139 mmol/L (136-145)
[2020-03-31] MEDS ORDERED: Aspirin 81 MG Tab.EC **OWN MED PO SCH (09:00)
[2020-03-31] MEDS ORDERED: Folic Acid 1 MG Tab **OWN MED PO SCH (09:00)
[2020-03-31] MEDS ORDERED: Lisinopril 20 MG Tab **OWN MED PO SCH (09:00)
[2020-03-31] MEDS ORDERED: MAGNESIUM 400 MG PO SCH (09:00)
[2020-03-31] MEDS ORDERED: Levothyroxine 150 MCG Tab **OWN MED PO SCH (09:00)
[2020-03-31] MEDS ORDERED: Pantoprazole 40 MG Tab.CR **OWN MED PO SCH (09:00)
[2020-03-31] MEDS: Insulin Lispro 100 Units/ML 3 ML Vial SUBCUT SCH (09:51)
[2020-03-31] MEDS: MORPHINE 30 MG PO SCH (10:14)
[2020-03-31] MEDS: Acetaminophen/HYDROcodone 325-10 MG Tab **OWN MED PO PRN (10:15)
[2020-03-31] MEDS: MORPHINE 15 MG PO SCH (10:15)
[2020-03-31] MEDS ORDERED: Polyethylene Glycol 3350 Powder 17 GM Packet PO ONE (10:19)
[2020-03-31] MEDS ORDERED: Potassium Chloride 10 MEQ Tab.ER PO ONE (10:39)
[2020-03-31] MEDS ORDERED: Nystatin Topical Powder 30 GM Bottle TOP PRN (10:54)
--- NOTE | 2020-03-31 10:54 | PCM.DCSUM1 ---
Discharge Summary - Hospital Course Free Text/Narrative:: 79-year-old with a history of diet-controlled diabetes, hypertension, recent lower extremity cellulitis treated with doxycycline The patient presented with weakness, possible chills, Lower extremity cellulitis This has been treated with the doxycycline WBC is not elevated, no fever, crp and sed rate normal - appear to be resolved - stop Doxy Diet-controlled diabetes BS are 120-140s at her age diet control is appropriate Hypertension Uncontrolled increased lisinopril fro 20 to 40 mg Chronic pain Continue long-acting morphine, hydrocodone Hypothyroidism Continue Synthroid Depression Treat with Zoloft weakness has been evaluated by pt/ot may be discharged to home but certainly high risk for falls, will set up home care half-way for medication administration and evaluation of the hypertension control, blood sugars Physical therapy for strengthening and home exercise regimen Occupational therapy for home safety evaluation and ADL training Diagnosis: Stroke: No - Discharge Data Discharge Date: 03/31/20 Discharge Disposition: Home, W Home Health Agency 06 Condition: Good - Referral to Home Health Date of Face to Face Encounter: 03/31/20 Reason for Homebound Status: weakness Primary Care Physician: PCP None Skilled Need: snf for medication administration, monitoring BP control, blood sugars. PT for strengthening and home exercise regimen. ot for home safety eval, ADL training - Discharge Diagnosis/Problem(s) (1) Hypertension SNOMED Code(s): 57501848 ICD Code: I10 - ESSENTIAL (PRIMARY) HYPERTENSION Status: Acute Current Visit: Yes (2) Weakness SNOMED Code(s): 24207126 ICD Code: R53.1 - WEAKNESS Status: Acute Current Visit: Yes (3) Arthritis SNOMED Code(s): 9656403 ICD Code: M19.90 - UNSPECIFIED OSTEOARTHRITIS, UNSPECIFIED SITE Status: Acute Current Visit: No (4) Weakness SNOMED Code(s): 86601199 ICD Code: R53.1 - WEAKNESS Status: Acute Current Visit: No (5) Arthritis SNOMED Code(s): 2234900 ICD Code: M19.90 - UNSPECIFIED OSTEOARTHRITIS, UNSPECIFIED SITE Status: Chronic Current Visit: No (6) Diabetes mellitus type 2 SNOMED Code(s): 31388162 ICD Code: E11.9 - TYPE 2 DIABETES MELLITUS WITHOUT COMPLICATIONS Status: Chronic Current Visit: No - Patient Summary/Data Consults: Consultations 08/02/20 14:51 OT Evaluation and Treatment [CONS] Routine PT Evaluation and Treatment [CONS] Routine - Patient Instructions Diet: Heart Healthy Diet Activity: As Tolerated - Discharge Plan *PRESCRIPTION DRUG MONITORING PROGRAM REVIEWED*: Not Applicable *COPY OF PRESCRIPTION DRUG MONITORING REPORT IN PATIENT PRESTON: Not Applicable Prescriptions/Med Rec: lisinopriL [Lisinopril] 40 mg PO DAILY #30 tablet Home Medications: Home Meds Levothyroxine Sodium 150 mcg PO DAILY 01/15/14 [History] Aspirin [Ecotrin EC] 81 mg PO DAILY 02/26/14 [History] Loperamide [Imodium] 2 mg PO Q4H PRN #1 box 02/26/14 [Rx] Sertraline [Zoloft] 200 mg PO DAILY 02/26/14 [History] Morphine Sulfate [Morphine Sulfate ER] 45 mg PO BID 12/17/16 [History] Jovany/D3/Mag11/Zinc/Residential Case Manager/Gene/Bor [Caltrate 600+D Plus Tablet] 1 tab PO DAILY 06/27/17 [History] Beta-Carotene(A)-Vits C,E/Mins [Vision Vitamins] 1 each PO DAILY 12/19/17 [History] Cholecalciferol (Vitamin D3) [Vitamin D3] 5,000 unit PO DAILY 12/19/17 [History] Latanoprost [Xalatan 0.005% Ophth Soln] 2.5 ml EYERT BEDTIME 12/19/17 [History] Magnesium Oxide [Magnesium] 800 mg PO DAILY 12/19/17 [History] Nitroglycerin 0.4 mg SL .Q5MIN X3 PRN 12/19/17 [History] diphenhydrAMINE [Benadryl] 25 mg PO Q8HR PRN 12/19/17 [History] B-Complex with Vitamin C [Super B Complex-Vitamin C] 1 tab PO DAILY 03/30/20 [History] Folic Acid 1 mg PO DAILY 03/30/20 [History] Hydrocodone/Acetaminophen [Hydrocodone-Acetamin 10-325 mg] 1 tab PO Q8HR PRN 03/30/20 [History] L Acidophil/B Lactis/B Longum [Florajen3] 1 cap PO DAILY 03/30/20 [History] Pantoprazole [ProTONIX] 40 mg PO DAILY 03/30/20 [History] lisinopriL [Lisinopril] 40 mg PO DAILY #30 tablet 03/31/20 [Rx] Oxygen Therapy Mode: Room Air Patient Handouts: Weakness, [id number] Referrals: PCP,None [Primary Care Provider] - (in 2-3 days re: htn) - Discharge Summary/Plan Comment DC Time >30 min.: Yes (referral to home care) - General Info Date of Service: 03/31/20 Functional Status: Reports: Pain Controlled - Review of Systems General: Reports: Weakness. Denies: Fever Pulmonary: Denies: Shortness of Breath Cardiovascular: Denies: Chest Pain, Edema Gastrointestinal: Denies: Abdominal Pain Neurological: Denies: Confusion - Patient Data Vitals - Most Recent: Last Vital Signs Temp 98.0 F 03/31/20 00:00 Pulse 79 03/31/20 00:00 Resp 20 03/31/20 00:00 BP 162/57 H 03/31/20 09:57 Pulse Ox 100 03/31/20 00:00 Weight - Most Recent: 143 lb 6.4 oz I&O - Last 24 hours: Intake & Output 03/30/20 03/31/20 03/31/20 22:59 06:59 14:59 Intake Total 740 500 Output Total 650 1050 Balance 90 -550 Lab Results - Last 24 hrs: Laboratory Results - last 24 hr 03/30/20 03/30/20 03/30/20 Range/Units 12:36 12:49 12:49 WBC 3.4 L (5.0-10.0) 10^3/uL RBC 3.89 L (4.2-5.4) 10^6/uL Hgb 11.4 L (12.0-16.0) g/dL Hct 34.6 L (37.0-47.0) % MCV 88.9 (80-100) fL MCH 29.3 (27.0-34.0) pg MCHC 32.9 L (33.0-35.0) g/dL Plt Count 119 L (150-450) 10^3/uL Neut % (Auto) 72.5 (42.2-75.2) % Lymph % (Auto) 15.5 L (20.5-50.1) % [place] % (Auto) 10.8 H (2-8) % Eos % (Auto) 0.9 L (1.0-3.0) % Baso % (Auto) 0.3 (0.0-1.0) % ESR (0-20) mm/hr Sodium 138 (136-145) mmol/L Potassium 3.6 (3.5-5.1) mmol/L Chloride 99 (98-107) mmol/L Carbon Dioxide 33 H (21-32) mmol/L Anion Gap 9.6 (7-13) mEq/L BUN 17 (7-18) mg/dL Creatinine 0.67 (0.55-1.02) mg/dL Est Cr Clr Drug Dosing 55.40 mL/min Estimated GFR (MDRD) > 60 BUN/Creatinine Ratio 25.4 (No establ ref range) Glucose 145 H (74-99) mg/dL POC Glucose (83-110) mg/dl Lactic Acid (0.4-2.0) mmol/L Calcium 8.8 (8.5-10.1) mg/dL Total Bilirubin 0.8 (0.2-1.0) mg/dL AST 19 (15-37) U/L ALT 18 (14-59) U/L Alkaline Phosphatase 89 (46-116) U/L C-Reactive Protein (0.0-0.9) mg/dL Total Protein 7.3 (6.4-8.2) g/dL Albumin 3.7 (3.4-5.0) g/dL Globulin 3.6 Albumin/Globulin Ratio 1.0 Urine Color Yellow (YELLOW) Urine Appearance Slightly cloudy (CLEAR) Urine pH 7.5 (5.0-9.0) Ur Specific [place] >= 1.030 (1.005-1.030) Urine Protein Negative (NEGATIVE) Urine Glucose (UA) Negative (NEGATIVE) Urine Ketones Negative (NEGATIVE) Urine Occult Blood Trace-intact H (NEGATIVE) Urine Nitrite Negative (NEGATIVE) Urine Bilirubin Negative (NEGATIVE) Urine Urobilinogen 0.2 (0.2-1.0) mg/dL Ur Leukocyte Esterase Negative (NEGATIVE) Urine RBC 10-20 H /HPF Urine WBC 0-5 (0-5/HPF) /HPF Ur Epithelial Cells Rare (NOT SEEN) /HPF Urine Bacteria Rare (0-FEW/HPF) /HPF Urine Mucus Few H (NOT SEEN) /LPF 03/30/20 03/30/20 03/30/20 Range/Units 15:48 16:43 21:37 WBC (5.0-10.0) 10^3/uL RBC (4.2-5.4) 10^6/uL Hgb (12.0-16.0) g/dL Hct (37.0-47.0) % MCV (80-100) fL MCH (27.0-34.0) pg MCHC (33.0-35.0) g/dL Plt Count (150-450) 10^3/uL Neut % (Auto) (42.2-75.2) % Lymph % (Auto) (20.5-50.1) % [place] % (Auto) (2-8) % Eos % (Auto) (1.0-3.0) % Baso % (Auto) (0.0-1.0) % ESR (0-20) mm/hr Sodium (136-145) mmol/L Potassium (3.5-5.1) mmol/L Chloride (98-107) mmol/L Carbon Dioxide (21-32) mmol/L Anion Gap (7-13) mEq/L BUN (7-18) mg/dL Creatinine (0.55-1.02) mg/dL Est Cr Clr Drug Dosing mL/min Estimated GFR (MDRD) BUN/Creatinine Ratio (No establ ref range) Glucose (74-99) mg/dL POC Glucose 168 H 123 H (83-110) mg/dl Lactic Acid 0.8 (0.4-2.0) mmol/L Calcium (8.5-10.1) mg/dL Total Bilirubin (0.2-1.0) mg/dL AST (15-37) U/L ALT (14-59) U/L Alkaline Phosphatase (46-116) U/L C-Reactive Protein (0.0-0.9) mg/dL Total Protein (6.4-8.2) g/dL Albumin (3.4-5.0) g/dL Globulin Albumin/Globulin Ratio Urine Color (YELLOW) Urine Appearance (CLEAR) Urine pH (5.0-9.0) Ur Specific [place] (1.005-1.030) Urine Protein (NEGATIVE) Urine Glucose (UA) (NEGATIVE) Urine Ketones (NEGATIVE) Urine Occult Blood (NEGATIVE) Urine Nitrite (NEGATIVE) Urine Bilirubin (NEGATIVE) Urine Urobilinogen (0.2-1.0) mg/dL Ur Leukocyte Esterase (NEGATIVE) Urine RBC /HPF Urine WBC (0-5/HPF) /HPF Ur Epithelial Cells (NOT SEEN) /HPF Urine Bacteria (0-FEW/HPF) /HPF Urine Mucus (NOT SEEN) /LPF 03/31/20 03/31/20 03/31/20 Range/Units 06:06 06:06 07:48 WBC (5.0-10.0) 10^3/uL RBC (4.2-5.4) 10^6/uL Hgb (12.0-16.0) g/dL Hct (37.0-47.0) % MCV (80-100) fL MCH (27.0-34.0) pg MCHC (33.0-35.0) g/dL Plt Count (150-450) 10^3/uL Neut % (Auto) (42.2-75.2) % Lymph % (Auto) (20.5-50.1) % [place] % (Auto) (2-8) % Eos % (Auto) (1.0-3.0) % Baso % (Auto) (0.0-1.0) % ESR 17 (0-20) mm/hr Sodium 139 (136-145) mmol/L Potassium 3.4 L (3.5-5.1) mmol/L Chloride 100 (98-107) mmol/L Carbon Dioxide 34 H (21-32) mmol/L Anion Gap 8.4 (7-13) mEq/L BUN 16 (7-18) mg/dL Creatinine 0.62 (0.55-1.02) mg/dL Est Cr Clr Drug Dosing 59.87 mL/min Estimated GFR (MDRD) > 60 BUN/Creatinine Ratio (No establ ref range) Glucose 124 H (74-99) mg/dL POC Glucose 133 H (83-110) mg/dl Lactic Acid (0.4-2.0) mmol/L Calcium 8.7 (8.5-10.1) mg/dL Total Bilirubin (0.2-1.0) mg/dL AST (15-37) U/L ALT (14-59) U/L Alkaline Phosphatase (46-116) U/L C-Reactive Protein 0.5 (0.0-0.9) mg/dL Total Protein (6.4-8.2) g/dL Albumin (3.4-5.0) g/dL Globulin Albumin/Globulin Ratio Urine Color (YELLOW) Urine Appearance (CLEAR) Urine pH (5.0-9.0) Ur Specific [place] (1.005-1.030) Urine Protein (NEGATIVE) Urine Glucose (UA) (NEGATIVE) Urine Ketones (NEGATIVE) Urine Occult Blood (NEGATIVE) Urine Nitrite (NEGATIVE) Urine Bilirubin (NEGATIVE) Urine Urobilinogen (0.2-1.0) mg/dL Ur Leukocyte Esterase (NEGATIVE) Urine RBC /HPF Urine WBC (0-5/HPF) /HPF Ur Epithelial Cells (NOT SEEN) /HPF Urine Bacteria (0-FEW/HPF) /HPF Urine Mucus (NOT SEEN) /LPF Med Orders - Current: Current Medications Acetaminophen (Tylenol) 650 mg PO Q4H PRN PRN Reason: Pain (Mild 1-3)/fever Hydrocodone Bitart/Acetaminophen ([place] 325-10 Mg) 1 tab PO Q8HR PRN PRN Reason: Pain Last Admin: 03/31/20 10:15 Dose: 1 tab Documented by: Aspirin (Halfprin) 81 mg PO DAILY [facility] Last Admin: 03/31/20 09:56 Dose: 81 mg Documented by: Diphenhydramine HCl (Benadryl) 25 mg PO Q8HR PRN PRN Reason: Itching Folic Acid (Folic Acid) 1 mg PO DAILY [facility] Last Admin: 03/31/20 09:57 Dose: 1 mg Documented by: Heparin Sodium (Porcine) (Heparin Sodium) 5,000 units SUBCUT Q8HR [facility] Last Admin: 03/31/20 05:45 Dose: 5,000 units Documented by: Insulin Human Lispro (Humalog) 0 unit SUBCUT ACBREAKFASTANDBED [facility]; Protocol Last Admin: 03/31/20 09:51 Dose: Not Given Documented by: Latanoprost (Xalatan 0.005% Ophth Soln) 2.5 ml EYERT BEDTIME [facility] Levothyroxine Sodium (Levothyroxine) 150 mcg PO DAILY [facility] Last Admin: 03/31/20 09:57 Dose: 150 mcg Documented by: Lisinopril (Prinivil) 20 mg PO DAILY [facility] Last Admin: 08/03/20 09:57 Dose: 20 mg Documented by: Methyl Salicylate (Icy Hot Cream) 1 gm TOP BID PRN PRN Reason: Pain (mild 1-3) Last Admin: 03/30/20 22:54 Dose: 1 applic Documented by: Morphine Sulfate (Ms Contin) 15 mg PO BID [facility] Last Admin: 03/31/20 10:15 Dose: 15 mg Documented by: Morphine Sulfate (Ms Contin) 30 mg PO BID [facility] Last Admin: 03/31/20 10:14 Dose: 30 mg Documented by: Magnesium 400 Mg ([place] Own Med) 0 mg PO DAILY [facility] Last Admin: 03/31/20 09:56 Dose: 800 mg Documented by: Ondansetron HCl (Zofran Odt) 4 mg PO Q4H PRN PRN Reason: nausea, able to take PO Ondansetron HCl (Zofran) 4 mg IVPUSH Q6H PRN PRN Reason: Nausea/Vomiting Pantoprazole Sodium (Protonix) 40 mg PO DAILY [facility] Last Admin: 03/31/20 09:57 Dose: 40 mg Documented by: Temazepam (Restoril) 15 mg PO BEDTIME PRN PRN Reason: Sleep Discontinued Medications Morphine Sulfate (Ms Contin) 30 mg PO Q12HR [facility] Polyethylene Glycol (Miralax) 17 gm PO ONETIME ONE Stop: 03/31/20 10:20 Potassium Chloride (Klor-Con 10) 20 meq PO ONETIME ONE Stop: 03/31/20 10:40 - Exam General: Reports: Alert, Oriented Neck: Reports: Supple Lungs: Reports: Clear to Auscultation, Normal Respiratory Effort Cardiovascular: Reports: Regular Rate, Regular Rhythm GI/Abdominal Exam: Normal Bowel Sounds, Soft, Non-Tender Extremities: No Pedal Edema Skin: Reports: Warm, Dry Psy/Mental Status: Reports: Alert, Normal Affect, Normal Mood
[2020-03-31 11:31] VITALS: BP 152/66; PULSE 74
== END 2020-03-31 14:00 | disposition home health service (06) ==
LOC: DL.ED 12:03 → DL.MS 13:53
PROVIDERS: ADMIT Internal Medicine; ATTEND Internal Medicine
DX: L03.116 Cellulitis of left lower limb (principal); L03.115 Cellulitis of right lower limb; G89.29 Other chronic pain; R53.1 Weakness; M19.90 Unspecified osteoarthritis, unspecified site; E03.9 Hypothyroidism, unspecified; E11.40 Type 2 diabetes mellitus with diabetic neuropathy, unspecified; F32.9 Major depressive disorder, single episode, unspecified; I10 Essential (primary) hypertension; Z88.5 Allergy status to narcotic agent; Z88.2 Allergy status to sulfonamides; Z88.8 Allergy status to other drugs, medicaments and biological substances; Z79.899 Other long term (current) drug therapy; Z87.891 Personal history of nicotine dependence; Z79.890 Hormone replacement therapy; Z79.82 Long term (current) use of aspirin
CPT/HCPCS: 36415; 80048; 80053; 81001; 82962; 83605; 85025; 85651; 86140; 87040; 93005; 96372; 97162; 97166; 99284; A9270; G0378; J1644

== ENCOUNTER 2020-05-09 01:34 | Emergency (ER) | payer MEDICARE, OTHER ==
[2020-05-09 01:35] VITALS: BP 137/77; PULSE 105
--- NOTE | 2020-05-09 01:48 | EDM.PDOC ---
ED HPI GENERAL MEDICAL PROBLEM - General Chief Complaint: Lower Extremity Injury/Pain Stated Complaint: AMBULANCE Time Seen by Provider: 05/09/20 01:35 Source of Information: Reports: Patient History Limitations: Reports: No Limitations - History of Present Illness INITIAL COMMENTS - FREE TEXT/NARRATIVE: This 79 yo female patient was brought to the ED by [facility] due to a ground level fall. The patient reports she was going to the bathroom when her toilet seat slipped and she fell between her electric wheelchair and the toilet. The patient reports she could not get up, so she called the ambulance. The patient reports she did not hit her head and had no loss of consciousness. The patient reports she has some pain in her legs which is normal for her. The patient reports her p ain is not worse than normal. Onset: Today Duration: Minutes:, Improving Location: Reports: Lower Extremity, Left, Lower Extremity, Right Quality: Reports: Other Severity: Mild Improves with: Reports: None Worsens with: Reports: None Context: Reports: Other Associated Symptoms: Reports: No Other Symptoms Bilateral Lower Leg Pain Score (Numeric/FACES): 5 - Related Data Allergies Allergy/AdvReac Type Severity Reaction Status Date / Time adhesive tape Allergy Cannot Verified 03/30/20 12:26 Remember esomeprazole Allergy Other Verified 03/30/20 12:31 lactose Allergy Diarrhea Verified 03/30/20 12:26 meperidine HCl [From Demerol] Allergy UNKNOWN Verified 03/30/20 12:26 niacin Allergy UNKNOWN Verified 03/30/20 12:26 nitrofurantoin Allergy Other Verified 03/30/20 12:31 Sulfa (Sulfonamide Allergy Cannot Verified 03/30/20 12:26 Antibiotics) Remember Home Meds: Home Meds Levothyroxine Sodium 150 mcg PO DAILY 01/15/14 [History] Aspirin [Ecotrin EC] 81 mg PO DAILY 02/26/14 [History] Loperamide [Imodium] 2 mg PO Q4H PRN #1 box 02/26/14 [Rx] Sertraline [Zoloft] 200 mg PO DAILY 02/26/14 [History] Morphine Sulfate [Morphine Sulfate ER] 45 mg PO BID 12/17/16 [History] Jovany/D3/Mag11/Zinc/Signal Integrity Engineer/Gene/Bor [Caltrate 600+D Plus Tablet] 1 tab PO DAILY 06/27/17 [History] Beta-Carotene(A)-Vits C,E/Mins [Vision Vitamins] 1 each PO DAILY 12/19/17 [History] Cholecalciferol (Vitamin D3) [Vitamin D3] 5,000 unit PO DAILY 12/19/17 [History] Latanoprost [Xalatan 0.005% Ophth Soln] 2.5 ml EYERT BEDTIME 12/19/17 [History] Magnesium Oxide [Magnesium] 800 mg PO DAILY 12/19/17 [History] Nitroglycerin 0.4 mg SL .Q5MIN X3 PRN 12/19/17 [History] diphenhydrAMINE [Benadryl] 25 mg PO Q8HR PRN 12/19/17 [History] B-Complex with Vitamin C [Super B Complex-Vitamin C] 1 tab PO DAILY 03/30/20 [History] Folic Acid 1 mg PO DAILY 03/30/20 [History] Hydrocodone/Acetaminophen [Hydrocodone-Acetamin 10-325 mg] 1 tab PO Q8HR PRN 03/30/20 [History] L Acidophil/B Lactis/B Longum [Florajen3] 1 cap PO DAILY 03/30/20 [History] Pantoprazole [ProTONIX] 40 mg PO DAILY 03/30/20 [History] lisinopriL [Lisinopril] 40 mg PO DAILY #30 tablet 03/31/20 [Rx] Past Medical History HEENT History: Reports: Hard of Hearing, Impaired Vision Other HEENT History: wears glasses Cardiovascular History: Reports: CAD, Hypertension Other Cardiovascular History: has had strokes Respiratory History: Reports: None Gastrointestinal History: Reports: Chronic Diarrhea Genitourinary History: Reports: Urinary Incontinence Other Genitourinary History: [employer] History: Reports: None Musculoskeletal History: Reports: Fracture, Osteoarthritis, RA Other Musculoskeletal History: bursitis Neurological History: Reports: Neuropathy, Diabetic Psychiatric History: Reports: Depression Endocrine/Metabolic History: Reports: Diabetes, Type II, Hypothyroidism Hematologic History: Reports: None Immunologic History: Reports: None Oncologic (Cancer) History: Reports: None Dermatologic History: Reports: Other (See Below) Other Dermatologic History: 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 - Infectious Disease History Infectious Disease History: Reports: Chicken Pox, Measles - Past Surgical History Head Surgeries/Procedures: Reports: None HEENT Surgical History: Reports: Cataract Surgery Musculoskeletal Surgical History: Reports: Hip Replacement, ORIF Social & Family History - Family History Family Medical History: Noncontributory HEENT: Reports: None OBGYN: Reports: None Psychiatric: Reports: None Endocrine/Metabolic: Reports: Diabetes, type II Other Oncologic Family History: unsure of type - Tobacco Use Smoking Status *Q: Unknown Ever Smoked - Caffeine Use Caffeine Use: Reports: Coffee - Recreational Drug Use Recreational Drug Use: No - Living Situation & Occupation Living situation: Reports: Single, , Alone Occupation: Retired Review of Systems - Review of Systems Review Of Systems: Comprehensive ROS is negative, except as noted in HPI. ED EXAM, GENERAL - Physical Exam Exam: See Below Exam Limited By: No Limitations General Appearance: Alert, WD/WN, Mild Distress Eye Exam: Bilateral Eye: EOMI, Normal Inspection, PERRL Ears: Normal External Exam, Normal Canal, Hearing Grossly Normal, Normal TMs Nose: Normal Inspection, Normal Mucosa, No Blood Throat/Mouth: Normal Inspection, Normal Lips, Normal Teeth, Normal Gums, Normal Oropharynx, Normal Voice, No Airway Compromise Head: Atraumatic, Normocephalic Neck: Normal Inspection, Supple, Non-Tender, Full Range of Motion Respiratory/Chest: No Respiratory Distress, Lungs Clear, Normal Breath Sounds, No Accessory Muscle Use, Chest Non-Tender Cardiovascular: Normal Peripheral Pulses, Regular Rate, Rhythm, No Edema, No Gallop, No JVD, No Murmur, No Rub GI/Abdominal: Normal Bowel Sounds, Soft, Non-Tender, No Organomegaly, No Distention, No Abnormal Bruit, No Mass (Female) Exam: Deferred Rectal (Female) Exam: Deferred Back Exam: Normal Inspection, Full Range of Motion, NT Extremities: Normal Inspection, Normal Range of Motion, No Pedal Edema, Normal Capillary Refill, Leg Pain (chronic knee pain due to RA) Neurological: Alert, Oriented, CN II-XII Intact, Normal Cognition, Normal Gait, Normal Reflexes, No Motor/Sensory Deficits Psychiatric: Normal Affect Skin Exam: Warm, Dry, Intact, Normal Color, No Rash Lymphatic: No Adenopathy Course - Vital Signs Last Recorded V/S: Last Vital Signs Temp 36.2 C 05/09/20 01:32 Pulse 105 H 05/09/20 01:32 Resp 20 05/09/20 01:32 BP 137/77 05/09/20 01:32 Pulse Ox 95 05/09/20 01:32 Departure - Departure Time of Disposition: 01:46 Disposition: Home, Self-Care 01 Condition: Fair Clinical Impression: Fall from ground level - Discharge Information *PRESCRIPTION DRUG MONITORING PROGRAM REVIEWED*: Not Applicable *COPY OF PRESCRIPTION DRUG MONITORING REPORT IN PATIENT PREST[place]: Not Applicable Instructions: Fall Prevention in the Home, Adult Care Plan Goals: The patient was advised of the examination results during the visit. The patient was encouraged to have her toilet seat fixed and to transfer slowly. If the patient has any additional symptoms or concerns, the patient should either return to the emergency department or visit her primary care facility. Sepsis Event Note (ED) - Evaluation Sepsis Screening Result: No Definite Risk - Focused Exam Vital Signs: Vital Signs Temp Pulse Resp BP Pulse Ox 05/09/20 01:32 36.2 C 105 H 20 137/77 95
== END 2020-05-09 02:07 | disposition home or self-care (01) ==
LOC: DL.ED 01:34
DX: M79.661 Pain in right lower leg (principal); M79.662 Pain in left lower leg; M25.561 Pain in right knee; M25.562 Pain in left knee; G89.29 Other chronic pain; E11.40 Type 2 diabetes mellitus with diabetic neuropathy, unspecified; I10 Essential (primary) hypertension; I25.10 Atherosclerotic heart disease of native coronary artery without angina pectoris; E03.9 Hypothyroidism, unspecified; F32.9 Major depressive disorder, single episode, unspecified; Z79.82 Long term (current) use of aspirin; Z79.899 Other long term (current) drug therapy; Z88.8 Allergy status to other drugs, medicaments and biological substances; Z88.2 Allergy status to sulfonamides; Z88.1 Allergy status to other antibiotic agents; W18.30XA Fall on same level, unspecified, initial encounter
CPT/HCPCS: 99284

== ENCOUNTER 2020-07-09 13:31 | Emergency (ER) | payer MEDICARE, OTHER ==
[2020-07-09 13:39] VITALS: BP 166/66; PULSE 86
--- NOTE | 2020-07-09 14:13 | EDM.PDOC ---
ED HPI GENERAL MEDICAL PROBLEM - General Chief Complaint: Skin Complaint Stated Complaint: AMBULANCE Time Seen by Provider: 07/09/20 14:00 Source of Information: Reports: Patient, EMS, EMS Notes Reviewed, Provider (Claritza Woodard Home health RN), RN, RN Notes Reviewed History Limitations: Reports: No Limitations - History of Present Illness INITIAL COMMENTS - FREE TEXT/NARRATIVE: The patient presents to the ED via EMS at the request of her home health nurse. The patient states she has a history of diabetes and has been treating wounds to her bilateral lower extremities for about one year with the assistance of a home health nurse. Today, upon changing the dressings to her legs, the home health nurse felt there was more edema, erythema, and drainage to the wound in comparison to Tuesday (07/04/2020) when the wound dressing was last changed. The patient typically follows with Dr. Merritt for wound care, but the home health nurse states Dr. Merritt is out of the office for the rest of the week. She expresses concern the wound has become infected and that the patient requires antibiotics. Olivia denies worsening pain to the area; given her body habitus she is unable to state if the wound looks different. She denies worsening loss of motor or sensory function to the area. She denies fever, shaking chills, recent illness, or additional trauma to the affected area. She denies changes to her medications. - Related Data Allergies Allergy/AdvReac Type Severity Reaction Status Date / Time adhesive tape Allergy Cannot Verified 03/30/20 12:26 Remember esomeprazole Allergy Other Verified 03/30/20 12:31 lactose Allergy Diarrhea Verified 03/30/20 12:26 meperidine HCl [From Demerol] Allergy UNKNOWN Verified 03/30/20 12:26 niacin Allergy UNKNOWN Verified 03/30/20 12:26 nitrofurantoin Allergy Other Verified 03/30/20 12:31 Sulfa (Sulfonamide Allergy Cannot Verified 03/30/20 12:26 Antibiotics) Remember Home Meds: Home Meds Levothyroxine Sodium 150 mcg PO DAILY 01/15/14 [History] Aspirin [Ecotrin EC] 81 mg PO DAILY 02/26/14 [History] Loperamide [Imodium] 2 mg PO Q4H PRN #1 box 02/26/14 [Rx] Sertraline [Zoloft] 200 mg PO DAILY 02/26/14 [History] Morphine Sulfate [Morphine Sulfate ER] 45 mg PO BID 12/17/16 [History] Jovany/D3/Mag11/Zinc/Avian Keeper/Gene/Bor [Caltrate 600+D Plus Tablet] 1 tab PO DAILY 06/27/17 [History] Beta-Carotene(A)-Vits C,E/Mins [Vision Vitamins] 1 each PO DAILY 12/19/17 [History] Cholecalciferol (Vitamin D3) [Vitamin D3] 5,000 unit PO DAILY 12/19/17 [History] Latanoprost [Xalatan 0.005% Ophth Soln] 2.5 ml EYERT BEDTIME 12/19/17 [History] Magnesium Oxide [Magnesium] 800 mg PO DAILY 12/19/17 [History] Nitroglycerin 0.4 mg SL .Q5MIN X3 PRN 12/19/17 [History] diphenhydrAMINE [Benadryl] 25 mg PO Q8HR PRN 12/19/17 [History] B-Complex with Vitamin C [Super B Complex-Vitamin C] 1 tab PO DAILY 03/30/20 [History] Folic Acid 1 mg PO DAILY 03/30/20 [History] Hydrocodone/Acetaminophen [Hydrocodone-Acetamin 10-325 mg] 1 tab PO Q8HR PRN 03/30/20 [History] L Acidophil/B Lactis/B Longum [Florajen3] 1 cap PO DAILY 03/30/20 [History] Pantoprazole [ProTONIX] 40 mg PO DAILY 03/30/20 [History] lisinopriL [Lisinopril] 40 mg PO DAILY #30 tablet 03/31/20 [Rx] Past Medical History HEENT History: Reports: Hard of Hearing, Impaired Vision Other HEENT History: wears glasses Cardiovascular History: Reports: CAD, Hypertension Other Cardiovascular History: has had strokes Respiratory History: Reports: None Gastrointestinal History: Reports: Chronic Diarrhea Genitourinary History: Reports: Urinary Incontinence Other Genitourinary History: freguency FORENSIC CHEMIST History: Reports: None Musculoskeletal History: Reports: Fracture, Osteoarthritis, RA Other Musculoskeletal History: bursitis Neurological History: Reports: Neuropathy, Diabetic Psychiatric History: Reports: Depression Endocrine/Metabolic History: Reports: Diabetes, Type II, Hypothyroidism Hematologic History: Reports: None Immunologic History: Reports: None Oncologic (Cancer) History: Reports: None Dermatologic History: Reports: Other (See Below) Other Dermatologic History: 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 - Infectious Disease History Infectious Disease History: Reports: Chicken Pox, Measles - Past Surgical History Head Surgeries/Procedures: Reports: None HEENT Surgical History: Reports: Cataract Surgery Musculoskeletal Surgical History: Reports: Hip Replacement, ORIF Social & Family History - Family History Family Medical History: No Pertinent Family History HEENT: Reports: None OBGYN: Reports: None Psychiatric: Reports: None Endocrine/Metabolic: Reports: Diabetes, type II Other Oncologic Family History: unsure of type - Caffeine Use Caffeine Use: Reports: Coffee - Living Situation & Occupation Living situation: Reports: Single, , Alone Occupation: Retired ED ROS GENERAL - Review of Systems Review Of Systems: Comprehensive ROS is negative, except as noted in HPI. ED EXAM, SKIN/RASH Exam: See Below Exam Limited By: Other (Physical impairment and significant hearing loss) General Appearance: Alert, WD/WN, No Apparent Distress Respiratory/Chest: No Respiratory Distress, Lungs Clear, Normal Breath Sounds, No Accessory Muscle Use, Chest Non-Tender Cardiovascular: Normal Peripheral Pulses. No: No Edema Peripheral Pulses: 2+: Radial (L), Radial (R) Extremities: Pedal Edema (+1 pitting), Leg Pain, Limited Range of Motion, Increased Warmth (To wounds on bilateral distal lower legs) Neurological: Alert, Oriented, CN II-XII Intact, Normal Cognition, No Motor/Sensory Deficits, Abnormal Gait. No: Normal Gait Skin: Wound/Incision (To distal lower legs, bilaterally R>L; Multiple weeping, open sores; Diffuse erythema) Location, Skin: Lower Extremity, Right, Lower Extremity, Left Characteristics: Confluent, Erythematous Associated features: Warmth, Tenderness, Swelling, Inflammation, Weeping Lymphatic: No Adenopathy Course - Vital Signs Last Recorded V/S: Last Vital Signs Temp 97.1 F 07/09/20 13:31 Pulse 86 07/09/20 13:31 Resp 18 07/09/20 13:31 BP 166/66 H 07/09/20 13:31 Pulse Ox 100 07/09/20 13:31 - Orders/Labs/Meds Labs: Laboratory Tests 07/09/20 07/09/20 07/09/20 Range/Units 14:27 14:27 14:27 WBC 3.4 L (5.0-10.0) 10^3/uL RBC 3.30 L (4.2-5.4) 10^6/uL Hgb 9.4 L D (12.0-16.0) g/dL Hct 29.3 L (37.0-47.0) % MCV 88.8 (80-100) fL MCH 28.5 (27.0-34.0) pg MCHC 32.1 L (33.0-35.0) g/dL Plt Count 128 L (150-450) 10^3/uL Neut % (Auto) 67.4 (42.2-75.2) % Lymph % (Auto) 19.5 L (20.5-50.1) % Mason % (Auto) 10.5 H (2-8) % Eos % (Auto) 1.7 (1.0-3.0) % Baso % (Auto) 0.9 (0.0-1.0) % Sodium 141 (136-145) mmol/L Potassium 3.6 (3.5-5.1) mmol/L Chloride 101 (98-107) mmol/L Carbon Dioxide 32 (21-32) mmol/L Anion Gap 11.6 (7-13) mEq/L BUN 16 (7-18) mg/dL Creatinine 0.64 (0.55-1.02) mg/dL Est Cr Clr Drug Dosing 62.03 mL/min Estimated GFR (MDRD) > 60 BUN/Creatinine Ratio 25.0 (No establ ref range) Glucose 127 H (74-99) mg/dL Lactic Acid 1.5 (0.4-2.0) mmol/L Calcium 8.4 L (8.5-10.1) mg/dL Phosphorus 3.3 (2.6-4.7) mg/dL Magnesium 1.5 L (1.8-2.4) mg/dL Total Bilirubin 0.3 (0.2-1.0) mg/dL AST 18 (15-37) U/L ALT 15 (14-59) U/L Alkaline Phosphatase 74 (46-116) U/L C-Reactive Protein < 0.2 (0.0-0.9) mg/dL B-Natriuretic Peptide (0-100) pg/ml Total Protein 6.3 L (6.4-8.2) g/dL Albumin 3.2 L (3.4-5.0) g/dL Globulin 3.1 Albumin/Globulin Ratio 1.03 07/09/20 Range/Units 14:27 WBC (5.0-10.0) 10^3/uL RBC (4.2-5.4) 10^6/uL Hgb (12.0-16.0) g/dL Hct (37.0-47.0) % MCV (80-100) fL MCH (27.0-34.0) pg MCHC (33.0-35.0) g/dL Plt Count (150-450) 10^3/uL Neut % (Auto) (42.2-75.2) % Lymph % (Auto) (20.5-50.1) % Mason % (Auto) (2-8) % Eos % (Auto) (1.0-3.0) % Baso % (Auto) (0.0-1.0) % Sodium (136-145) mmol/L Potassium (3.5-5.1) mmol/L Chloride (98-107) mmol/L Carbon Dioxide (21-32) mmol/L Anion Gap (7-13) mEq/L BUN (7-18) mg/dL Creatinine (0.55-1.02) mg/dL Est Cr Clr Drug Dosing mL/min Estimated GFR (MDRD) BUN/Creatinine Ratio (No establ ref range) Glucose (74-99) mg/dL Lactic Acid (0.4-2.0) mmol/L Calcium (8.5-10.1) mg/dL Phosphorus (2.6-4.7) mg/dL Magnesium (1.8-2.4) mg/dL Total Bilirubin (0.2-1.0) mg/dL AST (15-37) U/L ALT (14-59) U/L Alkaline Phosphatase (46-116) U/L C-Reactive Protein (0.0-0.9) mg/dL B-Natriuretic Peptide 92 (0-100) pg/ml Total Protein (6.4-8.2) g/dL Albumin (3.4-5.0) g/dL Globulin Albumin/Globulin Ratio - Re-Assessments/Exams Free Text/Narrative Re-Assessment/Exam: 07/09/20 Toe Puncher spoke with nurse regarding previous plan for wound care, including treatment and frequency. Given worsening appearance of wounds that I have not seen prior, will treat with antibiotics. BNP normal for patient. Patient and home health nurse instructed to follow up with Dr. Merritt regarding wounds early next week. Patient and home health nurse verbalized understanding and agreement with the plan of care. Departure - Departure Time of Disposition: 16:06 Disposition: Home, Self-Care 01 Condition: Good Clinical Impression: Cellulitis Qualifiers: Site of cellulitis: extremity Site of cellulitis of extremity: lower extremity Laterality: right Qualified Code(s): L03.115 - Cellulitis of right lower limb - Discharge Information *PRESCRIPTION DRUG MONITORING PROGRAM REVIEWED*: Not Applicable *COPY OF PRESCRIPTION DRUG MONITORING REPORT IN PATIENT PRESTON: Not Applicable Instructions: Cellulitis, Adult, [id number] Referrals: Jose David Merritt MD [Primary Care Provider] - Forms: ED Department Discharge Additional Instructions: Rx: Clindamycin Take all of your antibiotic until it is gone. Follow up with your primary care provider in seven days following completion of your antibiotics, or sooner with any worsening redness, drainage, or pain to the affected area. Sepsis Event Note (ED) - Evaluation Sepsis Screening Result: No Definite Risk
[2020-07-09 15:09] LABS: ANION GAP 11.6 mEq/L (7-13); CHLORIDE,CL 101 mmol/L (98-107); SODIUM,NA 141 mmol/L (136-145)
== END 2020-07-09 16:00 | disposition home or self-care (01) ==
LOC: DL.ED 13:31
DX: L03.115 Cellulitis of right lower limb (principal); I25.10 Atherosclerotic heart disease of native coronary artery without angina pectoris; I10 Essential (primary) hypertension; M19.90 Unspecified osteoarthritis, unspecified site; E11.40 Type 2 diabetes mellitus with diabetic neuropathy, unspecified; F32.9 Major depressive disorder, single episode, unspecified; E03.9 Hypothyroidism, unspecified; Z91.048 Other nonmedicinal substance allergy status; Z88.8 Allergy status to other drugs, medicaments and biological substances; Z91.011 Allergy to milk products; Z88.5 Allergy status to narcotic agent; Z88.2 Allergy status to sulfonamides; Z88.1 Allergy status to other antibiotic agents; Z79.82 Long term (current) use of aspirin; Z79.899 Other long term (current) drug therapy
CPT/HCPCS: 36415; 80053; 83605; 83735; 83880; 84100; 85025; 86140; 99283

== ENCOUNTER 2021-03-16 07:02 | Inpatient (IN) | payer MEDICARE, OTHER ==
--- NOTE | 2021-03-16 07:41 | EDM.PDOC ---
ED HPI GENERAL MEDICAL PROBLEM - General Chief Complaint: Gastrointestinal Problem Time Seen by Provider: 03/16/21 07:35 Source of Information: Reports: Patient, Provider (Home Health RN), RN, RN Notes Reviewed History Limitations: Reports: Language Barrier (Significantly hearing impaired) - History of Present Illness INITIAL COMMENTS - FREE TEXT/NARRATIVE: Olivia is a 80 y/o female who presents to the ED via [facility] with complaints of frequent diarrhea. Per report from the patient's home health RN, the patient was diagnosed with a Clostridium difficile infection three days ago and has been taking Vancomycin 125mg QID since the diagnosis. The patient is concerned about the amount of diarrhea she is experiencing and reports three loose stools over the night. She feels her stools have been dark in nature. She denies fever, shaking chills, palpitations, vomiting, abdominal pain, dysuria, hematuria, melena, or hematochezia. She does attest to transient nausea. 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 She feels she is unable to appropriately care for herself in her home. - Related Data Allergies Allergy/AdvReac Type Severity Reaction Status Date / Time adhesive tape Allergy Cannot Verified 03/30/20 12:26 Remember esomeprazole Allergy Other Verified 03/30/20 12:31 lactose Allergy Diarrhea Verified 03/30/20 12:26 meperidine HCl [From Demerol] Allergy UNKNOWN Verified 03/30/20 12:26 niacin Allergy UNKNOWN Verified 03/30/20 12:26 nitrofurantoin Allergy Other Verified 03/30/20 12:31 Sulfa (Sulfonamide Allergy Cannot Verified 03/30/20 12:26 Antibiotics) Remember Home Meds: Home Meds Levothyroxine Sodium 150 mcg PO DAILY 01/15/14 [History] Aspirin [Ecotrin EC] 81 mg PO DAILY 02/26/14 [History] Loperamide [Imodium] 2 mg PO Q4H PRN #1 box 02/26/14 [Rx] Sertraline [Zoloft] 200 mg PO DAILY 02/26/14 [History] Morphine Sulfate [Morphine Sulfate ER] 45 mg PO BID 12/17/16 [History] Jovany/D3/Mag11/Zinc/Admitting Office Escort/Gene/Bor [Caltrate 600+D Plus Tablet] 1 tab PO DAILY 06/27/17 [History] Beta-Carotene(A)-Vits C,E/Mins [Vision Vitamins] 1 each PO DAILY 12/19/17 [History] Cholecalciferol (Vitamin D3) [Vitamin D3] 5,000 unit PO DAILY 12/19/17 [History] Latanoprost [Xalatan 0.005% Ophth Soln] 2.5 ml EYERT BEDTIME 12/19/17 [History] Magnesium Oxide [Magnesium] 800 mg PO DAILY 12/19/17 [History] Nitroglycerin 0.4 mg SL .Q5MIN X3 PRN 12/19/17 [History] diphenhydrAMINE [Benadryl] 25 mg PO Q8HR PRN 12/19/17 [History] B-Complex with Vitamin C [Super B Complex-Vitamin C] 1 tab PO DAILY 03/30/20 [History] Folic Acid 1 mg PO DAILY 03/30/20 [History] Hydrocodone/Acetaminophen [HYDROcodone-Acetaminophen 10-325 MG] 1 tab PO Q8HR PRN 03/30/20 [History] L Acidophil/B Lactis/B Longum [Florajen3] 1 cap PO DAILY 03/30/20 [History] Pantoprazole [ProTONIX] 40 mg PO DAILY 03/30/20 [History] lisinopriL [Lisinopril] 40 mg PO DAILY #30 tablet 03/31/20 [Rx] Past Medical History HEENT History: Reports: Hard of Hearing, Impaired Vision Other HEENT History: wears glasses Cardiovascular History: Reports: CAD, Hypertension Other Cardiovascular History: has had strokes Respiratory History: Reports: None Gastrointestinal History: Reports: Chronic Diarrhea Genitourinary History: Reports: Urinary Incontinence Other Genitourinary History: 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: Reports: 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 Musculoskeletal History: Reports: Fracture, Osteoarthritis, RA Other Musculoskeletal History: bursitis Neurological History: Reports: Neuropathy, Diabetic Psychiatric History: Reports: Depression Endocrine/Metabolic History: Reports: Diabetes, Type II, Hypothyroidism Hematologic History: Reports: None Immunologic History: Reports: None Oncologic (Cancer) History: Reports: None Dermatologic History: Reports: Other (See Below) Other Dermatologic History: 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 Does not know name. Curvature of spine Musculoskeletal Surgical History: Reports: Hip Replacement, ORIF Oncologic Surgical History: Reports: None Social & Family History - Family History Family Medical History: No Pertinent Family History HEENT: Reports: None OBGYN: Reports: None Psychiatric: Reports: None Endocrine/Metabolic: Reports: Diabetes, type II Other Oncologic Family History: unsure of type - Caffeine Use Caffeine Use: Reports: Coffee - Living Situation & Occupation Living situation: Reports: Single, , Alone Occupation: Retired ED ROS GENERAL - Review of Systems Review Of Systems: Comprehensive ROS is negative, except as noted in HPI. ED EXAM, GI/ABD - Physical Exam Exam: See Below Exam Limited By: Language Barrier (Significantly [place]) General Appearance: Alert, No Apparent Distress Eyes: Bilateral: Normal Appearance, EOMI Ears: Normal External Exam, Hearing Grossly Normal Nose: Normal Inspection, No Blood Throat/Mouth: Normal Voice, No Airway Compromise. No: Normal Lips (Dry, cracked), Normal Oropharynx (Dry mucous membranes) Head: Atraumatic, Normocephalic Neck: Normal Inspection, Supple, Non-Tender, Full Range of Motion. No: Lymphadenopathy (L), Lymphadenopathy (R) Respiratory/Chest: No Respiratory Distress, Lungs Clear, Normal Breath Sounds, No Accessory Muscle Use, Chest Non-Tender Cardiovascular: Normal Peripheral Pulses, Regular Rate, Rhythm, No Edema, No Gallop, No JVD, No Rub, Systolic Murmur (2/6 systolic mumur, loudest over the pulmonic area; No radiation into carotids) GI/Abdominal Exam: Soft, Non-Tender, No Distention, No Abnormal Bruit, No Mass, Pelvis Stable, Abnormal Bowel Sounds (Hyperactive bowel sounds) (Female) Exam: Deferred Rectal (Female) Exam: Deferred Back Exam: Normal Inspection, Decreased Range of Motion (Chronic) Extremities: Normal Capillary Refill, Leg Pain (To bilateral lower extremities), Redness (To bilateral lower extremities). No: Normal Range of Motion (Decreased, chronic), Joint Swelling Neurological: Alert, Oriented, CN II-XII Intact, Normal Cognition, No Motor/Sensory Deficits, Abnormal Gait (Wheelchair for mobility) Psychiatric: Normal Affect, Normal Mood Skin Exam: Warm, Dry, Erythema (To bilateral lower extremities), Wound/Incision (To bilateral lower extremities) Course - Vital Signs Last Recorded V/S: Last Vital Signs Temp 98.5 F 03/16/21 06:58 Pulse 96 03/16/21 06:58 Resp 18 03/16/21 06:58 BP 165/69 H 03/16/21 06:58 Pulse Ox 100 03/16/21 06:58 - Orders/Labs/Meds Orders: Active Orders 24 hr Category Date Time Status Admission Diagnosis [ADT] Stat ADT 03/16/21 10:31 Ordered Admission Status [Patient Status] [ADT] Routine ADT 03/16/21 10:31 Active Saenz [CORONAVIRUS COVID-19 ARI] [MOLEC] Stat Lab 03/16/21 11:11 Received Labs: Laboratory Tests 03/16/21 03/16/21 03/16/21 Range/Units 07:25 07:25 07:25 WBC 3.4 L (5.0-10.0) 10^3/uL RBC 3.55 L (4.2-5.4) 10^6/uL Hgb 8.8 L (12.0-16.0) g/dL Hct 28.9 L (37.0-47.0) % MCV 81.4 D (80-100) fL MCH 24.8 L (27.0-34.0) pg MCHC 30.4 L (33.0-35.0) g/dL Plt Count 141 L (150-450) 10^3/uL Neut % (Auto) 70.0 (42.2-75.2) % Lymph % (Auto) 17.8 L (20.5-50.1) % Holmes % (Auto) 10.4 H (2-8) % Eos % (Auto) 1.5 (1.0-3.0) % Baso % (Auto) 0.3 (0.0-1.0) % Sodium 136 (136-145) mmol/L Potassium 3.9 (3.5-5.1) mmol/L Chloride 96 L (98-107) mmol/L Carbon Dioxide 32 (21-32) mmol/L Anion Gap 11.9 (7-13) mEq/L BUN 8 (7-18) mg/dL Creatinine 0.66 (0.55-1.02) mg/dL Est Cr Clr Drug Dosing TNP Estimated GFR (MDRD) > 60 BUN/Creatinine Ratio 12.1 (No establ ref range) Glucose 120 H (70-99) mg/dL Lactic Acid 1.2 (0.4-2.0) mmol/L Calcium 8.7 (8.5-10.1) mg/dL Magnesium 1.5 L (1.8-2.4) mg/dL Total Bilirubin 0.5 (0.2-1.0) mg/dL AST 20 (15-37) U/L ALT 17 (14-59) U/L Alkaline Phosphatase 75 (46-116) U/L Total Protein 6.9 (6.4-8.2) g/dL Albumin 3.4 (3.4-5.0) g/dL Globulin 3.5 Albumin/Globulin Ratio 1.0 Urine Color (YELLOW) Urine Appearance (CLEAR) Urine pH (5.0-9.0) Ur Specific [place] (1.005-1.030) Urine Protein (NEGATIVE) Urine Glucose (UA) (NEGATIVE) Urine Ketones (NEGATIVE) Urine Occult Blood (NEGATIVE) Urine Nitrite (NEGATIVE) Urine Bilirubin (NEGATIVE) Urine Urobilinogen (0.2-1.0) mg/dL Ur Leukocyte Esterase (NEGATIVE) Urine RBC /HPF Urine WBC (0-5/HPF) /HPF Ur Epithelial Cells (NOT SEEN) /HPF Urine Bacteria (0-FEW/HPF) /HPF / Range/Units 07:55 WBC (5.0-10.0) 10^3/uL RBC (4.2-5.4) 10^6/uL Hgb (12.0-16.0) g/dL Hct (37.0-47.0) % MCV (80-100) fL MCH (27.0-34.0) pg MCHC (33.0-35.0) g/dL Plt Count (150-450) 10^3/uL Neut % (Auto) (42.2-75.2) % Lymph % (Auto) (20.5-50.1) % Holmes % (Auto) (2-8) % Eos % (Auto) (1.0-3.0) % Baso % (Auto) (0.0-1.0) % Sodium (136-145) mmol/L Potassium (3.5-5.1) mmol/L Chloride (98-107) mmol/L Carbon Dioxide (21-32) mmol/L Anion Gap (7-13) mEq/L BUN (7-18) mg/dL Creatinine (0.55-1.02) mg/dL Est Cr Clr Drug Dosing Estimated GFR (MDRD) BUN/Creatinine Ratio (No establ ref range) Glucose (70-99) mg/dL Lactic Acid (0.4-2.0) mmol/L Calcium (8.5-10.1) mg/dL Magnesium (1.8-2.4) mg/dL Total Bilirubin (0.2-1.0) mg/dL AST (15-37) U/L ALT (14-59) U/L Alkaline Phosphatase (46-116) U/L Total Protein (6.4-8.2) g/dL Albumin (3.4-5.0) g/dL Globulin Albumin/Globulin Ratio Urine Color Yellow (YELLOW) Urine Appearance Clear (CLEAR) Urine pH 8.5 (5.0-9.0) Ur Specific [place] 1.020 (1.005-1.030) Urine Protein Negative (NEGATIVE) Urine Glucose (UA) Negative (NEGATIVE) Urine Ketones Negative (NEGATIVE) Urine Occult Blood Small H (NEGATIVE) Urine Nitrite Negative (NEGATIVE) Urine Bilirubin Negative (NEGATIVE) Urine Urobilinogen 0.2 (0.2-1.0) mg/dL Ur Leukocyte Esterase Negative (NEGATIVE) Urine RBC 0-5 /HPF Urine WBC 0-5 (0-5/HPF) /HPF Ur Epithelial Cells Few (NOT SEEN) /HPF Urine Bacteria Few (0-FEW/HPF) /HPF Meds: Medications Discontinued Medications Generic Name Dose Route Start Last Admin Trade Name Freq PRN Reason Stop Dose Admin Magnesium Sulfate 2 gm/ Premix 50 mls @ 25 mls/hr 03/16/21 08:15 03/16/21 08:40 IV 03/16/21 10:14 25 mls/hr ONETIME ONE Administration Morphine Sulfate 15 mg 03/16/21 09:58 03/16/21 11:09 Morphine 15 Mg Tab.Er PO 03/16/21 09:59 Not Given ONETIME ONE Morphine Sulfate 45 mg 03/16/21 09:58 03/16/21 11:09 Morphine 15 Mg Tab.Er PO 03/16/21 09:59 45 mg ONETIME ONE Administration - Re-Assessments/Exams Free Text/Narrative Re-Assessment/Exam: 03/16/21 Heme-occult negative. Magnesium replaced. Case discussed with Dr. Merrill who accepted patient for admission for colitis and progressive altered mobility. Findings of examination, lab work, and discussion with Dr. Merrill reviewed with patient. Patient verbalized understanding and agreement with the plan of care. Departure - Departure Time of Disposition: 11:35 Disposition: Admitted As Inpatient 65 Condition: Fair Clinical Impression: Clostridium difficile diarrhea, Hypomagnesemia, Alteration in activity, Alteration in mobility due to weakness - Discharge Information Forms: ED Department Discharge Sepsis Event Note (ED) - Focused Exam Vital Signs: Vital Signs Temp Pulse Resp BP Pulse Ox 03/16/21 06:58 98.5 F 96 18 165/69 H 100 - My Orders Last 24 Hours: My Active Orders 03/16/21 10:31 Admission Diagnosis [ADT] Stat Admission Status [Patient Status] [ADT] Routine 03/16/21 11:11 Saenz [CORONAVIRUS COVID-19 ARI] [MOLEC] Stat - Assessment/Plan Last 24 Hours: My Active Orders 03/16/21 10:31 Admission Diagnosis [ADT] Stat Admission Status [Patient Status] [ADT] Routine 03/16/21 11:11 Saenz [CORONAVIRUS COVID-19 ARI] [MOLEC] Stat
[2021-03-16 07:51] LABS: ANION GAP 11.9 mEq/L (7-13); CHLORIDE,CL 96 mmol/L (98-107); SODIUM,NA 136 mmol/L (136-145)
[2021-03-16] MEDS ORDERED: Magnesium Sulfate/Water 2 GM in Premix Bag 1 BAG IV ONE ×2 (08:15→15:00)
[2021-03-16] MEDS ORDERED: Morphine 15 MG Tab.ER PO ONE ×2 (09:58)
[2021-03-16] MEDS ORDERED: Sodium Chloride 0.9% 10 ML Syringe FLUSH PRN (13:13)
[2021-03-16] MEDS ORDERED: Acetaminophen 325 MG Tab PO PRN (13:13)
[2021-03-16] MEDS ORDERED: Ondansetron 4 MG/2 ML SDV IVPUSH PRN (13:13)
[2021-03-16] MEDS ORDERED: 50% Dextrose in Water 50 ML Syringe IVPUSH PRN (13:16)
[2021-03-16] MEDS ORDERED: Glucagon,Human Recombinant 1 MG Vial IM PRN (13:16)
--- NOTE | 2021-03-16 13:22 | PCM.HP ---
H&P History of Present Illness - General Date of Service: 03/16/21 Admit Problem/Dx: Admission Diagnosis/Problem Admission Diagnosis/Problem Infectious colitis - History of Present Illness Initial Comments - Free Text/Narative: The patient is an 80-year-old female who presents with chief complaint of generalized weakness and diarrhea. The patient was recently diagnosed on an outpatient basis with C. difficile colitis which was believed to be due to use of clindamycin for bilateral lower extremities. Unfortunately the patient is incredibly hard of hearing and I am unable to directly obtain symptomatology f rom her. She is accompanied by her friend who is her medical power of deputy county attorney as well as her home nurse who have indicated that she has decreased mobility as a sequelae of her diarrhea. She presents for further evaluation - Related Data Allergies/Adverse Reactions: Allergies Allergy/AdvReac Type Severity Reaction Status Date / Time adhesive tape Allergy Cannot Verified 03/30/20 12:26 Remember esomeprazole Allergy Other Verified 03/30/20 12:31 lactose Allergy Diarrhea Verified 03/30/20 12:26 meperidine HCl [From Demerol] Allergy UNKNOWN Verified 03/30/20 12:26 niacin Allergy UNKNOWN Verified 03/30/20 12:26 nitrofurantoin Allergy Other Verified 03/30/20 12:31 Sulfa (Sulfonamide Allergy Cannot Verified 03/30/20 12:26 Antibiotics) Remember Home Medications: Home Meds Levothyroxine Sodium 175 mcg PO DAILY 01/15/14 [History] Aspirin [Ecotrin EC] 81 mg PO DAILY 02/26/14 [History] Loperamide [Imodium] 2 mg PO Q4H PRN #1 box 02/26/14 [Rx] Sertraline [Zoloft] 200 mg PO DAILY 02/26/14 [History] Morphine Sulfate [Morphine Sulfate ER] 45 mg PO BID 12/17/16 [History] Jovany/D3/Mag11/Zinc/Undercover Cop/Gene/Bor [Caltrate 600+D Plus Tablet] 1 tab PO DAILY 06/27/17 [History] Latanoprost [Xalatan 0.005% Ophth Soln] 2.5 ml EYERT BEDTIME 12/19/17 [History] Nitroglycerin 0.4 mg SL .Q5MIN X3 PRN 12/19/17 [History] B-Complex with Vitamin C [Super B Complex-Vitamin C] 1 tab PO DAILY 03/30/20 [History] Folic Acid 1 mg PO DAILY 03/30/20 [History] Hydrocodone/Acetaminophen [HYDROcodone-Acetaminophen 10-325 MG] 1 tab PO Q8HR PRN 03/30/20 [History] lisinopriL [Lisinopril] 40 mg PO DAILY #30 tablet 03/31/20 [Rx] Iron Polysaccharide Complex [Poly-Iron] 1 cap PO DAILY 03/16/21 [History] L Acidophil/B Lactis/B Longum [Florajen Digest 15 B Cell Cap] 1 cap PO DAILY 03/16/21 [History] Lactulose 15 ml PO DAILY PRN 03/16/21 [History] Lansoprazole [Prevacid] 30 mg PO DAILY 03/16/21 [History] Vancomycin [Vancocin 125 MG Capsule] 125 mg PO QID 03/16/21 [History] diphenhydrAMINE [Benadryl] 25 mg PO Q8HR PRN 03/16/21 [History] metFORMIN [Glucophage] 250 mg PO BID 03/16/21 [History] Past Medical History HEENT History: Reports: Hard of Hearing, Impaired Vision Other HEENT History: wears glasses Cardiovascular History: Reports: CAD, Hypertension Other Cardiovascular History: has had strokes Respiratory History: Reports: None Gastrointestinal History: Reports: Chronic Diarrhea Genitourinary History: Reports: Urinary Incontinence Other Genitourinary History: frequency [employer] History: Reports: None Musculoskeletal History: Reports: Fracture, Osteoarthritis, RA Other Musculoskeletal History: bursitis Neurological History: Reports: Neuropathy, Diabetic Psychiatric History: Reports: Depression Endocrine/Metabolic History: Reports: Diabetes, Type II, Hypothyroidism Hematologic History: Reports: None Immunologic History: Reports: None Oncologic (Cancer) History: Reports: None Dermatologic History: Reports: Other (See Below) Other Dermatologic History: 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 Does not know name. Curvature of spine Musculoskeletal Surgical History: Reports: Hip Replacement, ORIF Oncologic Surgical History: Reports: None Social & Family History - Family History Family Medical History: No Pertinent Family History HEENT: Reports: None OBGYN: Reports: None Psychiatric: Reports: None Endocrine/Metabolic: Reports: Diabetes, type II Other Oncologic Family History: unsure of type - Tobacco Use Tobacco Use Status *Q: Former Tobacco User Used Tobacco, but Quit: Yes Month/Year Tobacco Last Used: 08/1990 - Caffeine Use Caffeine Use: Reports: Coffee - Recreational Drug Use Recreational Drug Use: No - Living Situation & Occupation Living situation: Reports: Single, , Alone Occupation: Retired H&P Review of Systems - Review of Systems: Review Of Systems: See Below General: Reports: Weakness. Denies: No Symptoms HEENT: Reports: No Symptoms Pulmonary: Reports: No Symptoms Cardiovascular: Reports: No Symptoms Gastrointestinal: Reports: Diarrhea Genitourinary: Reports: No Symptoms Musculoskeletal: Reports: No Symptoms Skin: Reports: No Symptoms Psychiatric: Reports: No Symptoms Neurological: Reports: No Symptoms Hematologic/Lymphatic: Reports: No Symptoms Immunologic: Reports: No Symptoms Exam - Exam Exam: See Below - Vital Signs Vital Signs: Last Vital Signs Temp 98.5 F 03/16/21 06:58 Pulse 96 03/16/21 06:58 Resp 18 03/16/21 06:58 BP 165/69 H 03/16/21 06:58 Pulse Ox 100 03/16/21 06:58 Weight: 151 lb - Exam General: Alert, Oriented, 4 HEENT: PERRLA, Hearing Intact, Mucosa Moist & [place], Nares Patent, Normal Nasal Septum, Posterior Pharynx Clear, Conjunctiva Clear, EOMI, EACs Clear, TMs Clear Neck: Supple, Trachea Midline, 2 Lungs: Clear to Auscultation, Normal Respiratory Effort Cardiovascular: Regular Rate, Regular Rhythm GI/Abdominal Exam: Normal Bowel Sounds, Soft, Non-Tender, No Organomegaly, No Distention, No Abnormal Bruit, No Mass, Pelvis Stable Back Exam: Normal Inspection, Full Range of Motion, NT Extremities: Normal Inspection, Normal Range of Motion, Non-Tender, No Pedal Edema, Normal Capillary Refill Peripheral Pulses: 2+: Carotid (L), Carotid (R), Brachial (L), Brachial (R), Radial (L), Radial (R), Femoral (L), Femoral (R), Popliteal (L), Popliteal (R), Posterior Tibial (L), Posterior Tibial (R), Dorsalis Pedis (L), Dorsalis Pedis (R) Skin: Warm, Dry, Intact Neurological: Cranial Nerves Intact, Reflexes Equal Bilateral Neuro Extensive - Mental Status: Alert, Oriented x3, Normal Mood/Affect, Normal Cognition Neuro Extensive - Motor, Sensory, Reflexes: CN II-XII Intact, Normal Gait, Normal Reflexes DTR: 2+: Bicep (L), Bicep (R), Tricep (L), Tricep (R), Patella (L), Patella (R), Achilles (L), Achilles (R) Psychiatric: Alert, Normal Affect, Normal Mood - Patient Data Lab Results Last 24 hrs: Laboratory Results - last 24 hr 03/16/21 03/16/21 03/16/21 Range/Units 07:25 07:25 07:25 WBC 3.4 L (5.0-10.0) 10^3/uL RBC 3.55 L (4.2-5.4) 10^6/uL Hgb 8.8 L (12.0-16.0) g/dL Hct 28.9 L (37.0-47.0) % MCV 81.4 D (80-100) fL MCH 24.8 L (27.0-34.0) pg MCHC 30.4 L (33.0-35.0) g/dL Plt Count 141 L (150-450) 10^3/uL Neut % (Auto) 70.0 (42.2-75.2) % Lymph % (Auto) 17.8 L (20.5-50.1) % Baldwin % (Auto) 10.4 H (2-8) % Eos % (Auto) 1.5 (1.0-3.0) % Baso % (Auto) 0.3 (0.0-1.0) % Sodium 136 (136-145) mmol/L Potassium 3.9 (3.5-5.1) mmol/L Chloride 96 L (98-107) mmol/L Carbon Dioxide 32 (21-32) mmol/L Anion Gap 11.9 (7-13) mEq/L BUN 8 (7-18) mg/dL Creatinine 0.66 (0.55-1.02) mg/dL Est Cr Clr Drug Dosing TNP Estimated GFR (MDRD) > 60 BUN/Creatinine Ratio 12.1 (No establ ref range) Glucose 120 H (70-99) mg/dL Lactic Acid 1.2 (0.4-2.0) mmol/L Calcium 8.7 (8.5-10.1) mg/dL Magnesium 1.5 L (1.8-2.4) mg/dL Total Bilirubin 0.5 (0.2-1.0) mg/dL AST 20 (15-37) U/L ALT 17 (14-59) U/L Alkaline Phosphatase 75 (46-116) U/L Total Protein 6.9 (6.4-8.2) g/dL Albumin 3.4 (3.4-5.0) g/dL Globulin 3.5 Albumin/Globulin Ratio 1.0 Urine Color (YELLOW) Urine Appearance (CLEAR) Urine pH (5.0-9.0) Ur Specific [place] (1.005-1.030) Urine Protein (NEGATIVE) Urine Glucose (UA) (NEGATIVE) Urine Ketones (NEGATIVE) Urine Occult Blood (NEGATIVE) Urine Nitrite (NEGATIVE) Urine Bilirubin (NEGATIVE) Urine Urobilinogen (0.2-1.0) mg/dL Ur Leukocyte Esterase (NEGATIVE) Urine RBC /HPF Urine WBC (0-5/HPF) /HPF Ur Epithelial Cells (NOT SEEN) /HPF Urine Bacteria (0-FEW/HPF) /HPF SARS-CoV-2 RNA (ARI) (NEGATIVE) 03/16/21 03/16/21 Range/Units 07:55 11:11 WBC (5.0-10.0) 10^3/uL RBC (4.2-5.4) 10^6/uL Hgb (12.0-16.0) g/dL Hct (37.0-47.0) % MCV (80-100) fL MCH (27.0-34.0) pg MCHC (33.0-35.0) g/dL Plt Count (150-450) 10^3/uL Neut % (Auto) (42.2-75.2) % Lymph % (Auto) (20.5-50.1) % Baldwin % (Auto) (2-8) % Eos % (Auto) (1.0-3.0) % Baso % (Auto) (0.0-1.0) % Sodium (136-145) mmol/L Potassium (3.5-5.1) mmol/L Chloride (98-107) mmol/L Carbon Dioxide (21-32) mmol/L Anion Gap (7-13) mEq/L BUN (7-18) mg/dL Creatinine (0.55-1.02) mg/dL Est Cr Clr Drug Dosing Estimated GFR (MDRD) BUN/Creatinine Ratio (No establ ref range) Glucose (70-99) mg/dL Lactic Acid (0.4-2.0) mmol/L Calcium (8.5-10.1) mg/dL Magnesium (1.8-2.4) mg/dL Total Bilirubin (0.2-1.0) mg/dL AST (15-37) U/L ALT (14-59) U/L Alkaline Phosphatase (46-116) U/L Total Protein (6.4-8.2) g/dL Albumin (3.4-5.0) g/dL Globulin Albumin/Globulin Ratio Urine Color Yellow (YELLOW) Urine Appearance Clear (CLEAR) Urine pH 8.5 (5.0-9.0) Ur Specific [place] 1.020 (1.005-1.030) Urine Protein Negative (NEGATIVE) Urine Glucose (UA) Negative (NEGATIVE) Urine Ketones Negative (NEGATIVE) Urine Occult Blood Small H (NEGATIVE) Urine Nitrite Negative (NEGATIVE) Urine Bilirubin Negative (NEGATIVE) Urine Urobilinogen 0.2 (0.2-1.0) mg/dL Ur Leukocyte Esterase Negative (NEGATIVE) Urine RBC 0-5 /HPF Urine WBC 0-5 (0-5/HPF) /HPF Ur Epithelial Cells Few (NOT SEEN) /HPF Urine Bacteria Few (0-FEW/HPF) /HPF SARS-CoV-2 RNA (ARI) Negative (NEGATIVE) Result Diagrams: 03/16/21 07:25 03/16/21 07:25 Justin Results Last 24 hrs: Microbiology 03/16/21 09:10 Stool Occult Blood (JUSTIN) - Final Stool / Feces NEGATIVE OCCULT BLOOD REFERENCE RANGE: NEGATIVE Problem List Initiated/Reviewed/Updated: Yes Orders Last 24hrs: Active Orders 24 hr Category Date Time Status Admission Diagnosis [ADT] Stat ADT 03/16/21 10:31 Ordered Admission Status [Patient Status] [ADT] Routine ADT 03/16/21 10:31 Active Antiembolic Devices [RC] PER UNIT ROUTINE Care 03/16/21 13:14 Active Blood Glucose Check, Bedside [RC] WITHMEALSANDBED Care 03/16/21 13:13 Active Peripheral IV Care [RC] . DIRECTED Care 03/16/21 13:14 Active Up With Assistance [RC] ASDIRECTED Care 03/16/21 13:13 Active Vital Signs [RC] Q4H Care 03/16/21 13:13 Active Wound Care [RC] DAILY Care 03/16/21 13:17 Active Consult to Case Management/Wire Fence Erector [CONS] Cons 03/16/21 13:13 Active Routine OT Evaluation and Treatment [CONS] Routine Cons 03/16/21 13:13 Active PT Evaluation and Treatment [CONS] Routine Cons 03/16/21 13:13 Active Consistent Carbohydrate Diet [DIET] Diet 03/16/21 Lunch Active CBC WITH AUTO DIFF [HEME] Routine Lab 03/17/21 05:00 Ordered FERRITIN [CHEM] Routine Lab 03/16/21 13:16 Ordered IRON/TIBC [CHEM] Routine Lab 03/16/21 13:16 Ordered MAGNESIUM [CHEM] Routine Lab 03/17/21 05:00 Ordered Acetaminophen [TylenoL] Med 03/16/21 13:13 Ordered 650 mg PO Q4H PRN Dextrose 50% in Water Med 03/16/21 13:16 Ordered 50 ml IVPUSH Q15M PRN Glucagon,Human Recombinant [GlucaGen] Med 03/16/21 13:16 Ordered 1 mg IM Q15M PRN Insulin Lispro [HumaLOG] Med 03/16/21 18:00 Ordered See Protocol SUBCUT WITHMEALSANDBED Magnesium Sulfate/Water [Magnesium Sulfate in Water 2 Med 03/16/21 13:16 Ordered GM/50 ML] 2 gm Premix Bag 1 bag IV ONETIME Ondansetron [Zofran] Med 03/16/21 13:13 Ordered 4 mg IVPUSH Q4H PRN Sodium Chloride 0.9% [Normal Saline] 1,000 ml Med 03/16/21 13:15 Ordered IV ASDIRECTED Sodium Chloride 0.9% [Saline Flush] Med 03/16/21 13:13 Ordered 10 ml FLUSH ASDIRECTED PRN Vancomycin [Vancocin 125 MG Capsule] Med 03/16/21 17:00 Ordered 250 mg PO QID Peripheral IV Insertion Adult [OM.PC] Routine Oth 03/16/21 13:13 Ordered Sequential Compression Device [OM.PC] Per Unit Routine Oth 03/16/21 13:13 Ordered Resuscitation Status Routine Resus Stat 03/16/21 13:13 Ordered Medication Orders Acetaminophen (Acetaminophen 325 Mg Tab) 650 mg PO Q4H PRN PRN Reason: Pain (Mild 1-3)/fever Dextrose/Water (50% Dextrose In Water 50 Ml Syringe) 50 ml IVPUSH Q15M PRN PRN Reason: Hypoglycemia Glucagon (Glucagon,Human Recombinant 1 Mg Vial) 1 mg IM Q15M PRN PRN Reason: Hypoglycemia Sodium Chloride (Normal Saline) 1,000 mls @ 75 mls/hr IV ASDIRECTED [facility] Magnesium Sulfate 2 gm/ Premix 50 mls @ 25 mls/hr IV ONETIME ONE Stop: 03/16/21 15:15 Insulin Human Lispro (Insulin Lispro 100 Units/Ml 3 Ml Vial) 0 unit SUBCUT WITHMEALSANDBED JUANA; Protocol Ondansetron HCl (Ondansetron 4 Mg/2 Ml Sdv) 4 mg IVPUSH Q4H PRN PRN Reason: Nausea/Vomiting Sodium Chloride (Sodium Chloride 0.9% 10 Ml Syringe) 10 ml FLUSH ASDIRECTED PRN PRN Reason: Keep Vein Open Vancomycin HCl (Vancomycin 125 Mg Cap) 250 mg PO QID [facility] Assessment/Plan Comment:: Surgical History: Appendectomy, bilateral cataract surgery, right hip surgery Family History: Cancer, stroke, diabetes, coronary artery disease Social History: Tobacco: Former smoker Alcohol: Denies. Patient has remote history of alcohol use Caffeine: Coffee, tea Drugs: Never Allergies: Per medical records: Sulfa, adhesive tape, Nexium, lactose, Demerol, niacin, nitrofurantoin Code Status: DNR, DNI Assessment / Plan: C. difficile colitis. Vancomycin 250 mg p.o. 4 times daily plus IV normal saline 75 mils per hour Hypomagnesemia. Will monitor magnesium levels intermittently and supplement as necessary Hypothyroidism Osteoarthritis Depression Anxiety Diverticulosis Osteopenia Glaucoma Chronic pain Pancytopenia. Will monitor hemoglobin level, leukocyte count, platelet count intermittently with CBC. Check serum ferritin, iron panel, fecal occult blood Coronary artery disease Diabetes. Will check fingerstick glucose before every meal and at bedtime and provide some sign scale GERD Hypertension Obesity. Patient becomes regarding left eye modification History of CVA Rheumatoid arthritis Neuropathy History of cholelithiasis Degenerative disc disease Macular degeneration Bilateral lower extremity ulcer. We will continue wound care per home regimen DVT prophylaxis. Bilateral SCD Disposition: The patient will likely be a candidate for discharge in 48 to 72 hours time. I request that physical therapy and Occupational Therapy evaluate the patient in conjunction with case management for possible prison placement for this patient. At the time of admission, the patient's home medications were pending input to the EMR/DHR system. Once their input, they will be reviewed and reconciled END OF DOCTOR EMAMIS HISTORY AND PHYSICAL / CONSULTATION NOTE
[2021-03-16] MEDS: Vancomycin 125 MG Cap PO SCH ×4 (14:57→21:58)
[2021-03-16] MEDS: Sodium Chloride 0.9% 1,000 ML IV SCH (14:57)
[2021-03-16] MEDS: Sertraline 50 MG Tab PO SCH (17:52)
[2021-03-16] MEDS: metFORMIN 500 MG Tab PO SCH (17:53)
[2021-03-16] MEDS: Insulin Lispro 100 Units/ML 3 ML Vial SUBCUT SCH ×2 (17:54→22:11)
[2021-03-16] MEDS: Ferrous Sulfate 325 MG Tab PO SCH (17:55)
[2021-03-16] MEDS: Morphine 15 MG Tab.ER PO SCH (21:59)
[2021-03-16] MEDS: Acetaminophen/HYDROcodone 325-10 MG Tab PO PRN (22:09)
[2021-03-17] MEDS: Sodium Chloride 0.9% 1,000 ML IV SCH ×2 (02:39→18:20)
[2021-03-17] MEDS: Levothyroxine 150 MCG Tab PO SCH (06:03)
[2021-03-17] MEDS: Levothyroxine 25 MCG Tab PO SCH (06:03)
[2021-03-17] MEDS ORDERED: Magnesium Sulfate/Water 2 GM in Premix Bag 1 BAG IV ONE (07:37)
--- NOTE | 2021-03-17 07:44 | PCM.PN ---
- General Info Date of Service: 03/17/21 Subjective Update: The patient is incredibly hard of hearing and thus I am unable to obtain all information regarding her symptomatology. Per nursing staff, the patient has had ongoing smearing of diarrhea. The patient denies fever, rigors, nausea, vomiting, abdominal pain. Of attempted to explain to the patient her current medical condition and plan of care and I answered all questions Functional Status: Reports: Pain Controlled - Review of Systems General: Reports: No Symptoms HEENT: Reports: No Symptoms Pulmonary: Reports: No Symptoms Cardiovascular: Reports: No Symptoms Gastrointestinal: Reports: Diarrhea Genitourinary: Reports: No Symptoms Musculoskeletal: Reports: No Symptoms Skin: Reports: No Symptoms Neurological: Reports: No Symptoms Psychiatric: Reports: No Symptoms - Patient Data Vitals - Most Recent: Last Vital Signs Temp 97.1 F 03/17/21 07:40 Pulse 80 03/17/21 07:40 Resp 23 H 03/17/21 07:40 BP 122/61 03/17/21 07:40 Pulse Ox 99 03/17/21 07:40 Weight - Most Recent: 138 lb 1.6 oz I&O - Last 24 Hours: Intake & Output 03/16/21 03/17/21 03/17/21 22:59 06:59 14:59 Intake Total 1190 689 Output Total 600 500 Balance 590 189 Lab Results Last 24 Hours: Laboratory Results - last 24 hr 03/16/21 03/16/21 03/16/21 Range/Units 07:25 07:25 07:25 WBC 3.4 L (5.0-10.0) 10^3/uL RBC 3.55 L (4.2-5.4) 10^6/uL Hgb 8.8 L (12.0-16.0) g/dL Hct 28.9 L (37.0-47.0) % MCV 81.4 D (80-100) fL MCH 24.8 L (27.0-34.0) pg MCHC 30.4 L (33.0-35.0) g/dL Plt Count 141 L (150-450) 10^3/uL Neut % (Auto) 70.0 (42.2-75.2) % Lymph % (Auto) 17.8 L (20.5-50.1) % [place] % (Auto) 10.4 H (2-8) % Eos % (Auto) 1.5 (1.0-3.0) % Baso % (Auto) 0.3 (0.0-1.0) % Sodium 136 (136-145) mmol/L Potassium 3.9 (3.5-5.1) mmol/L Chloride 96 L (98-107) mmol/L Carbon Dioxide 32 (21-32) mmol/L Anion Gap 11.9 (7-13) mEq/L BUN 8 (7-18) mg/dL Creatinine 0.66 (0.55-1.02) mg/dL Est Cr Clr Drug Dosing TNP Estimated GFR (MDRD) > 60 BUN/Creatinine Ratio 12.1 (No establ ref range) Glucose 120 H (70-99) mg/dL POC Glucose (70-99) mg/dL Lactic Acid 1.2 (0.4-2.0) mmol/L Calcium 8.7 (8.5-10.1) mg/dL Magnesium 1.5 L (1.8-2.4) mg/dL Iron (50-175) ug/dL TIBC (250-450) ug/dL % Saturation (20.0-50.0) % Ferritin (8-252) mg/mL Total Bilirubin 0.5 (0.2-1.0) mg/dL AST 20 (15-37) U/L ALT 17 (14-59) U/L Alkaline Phosphatase 75 (46-116) U/L Total Protein 6.9 (6.4-8.2) g/dL Albumin 3.4 (3.4-5.0) g/dL Globulin 3.5 Albumin/Globulin Ratio 1.0 Urine Color (YELLOW) Urine Appearance (CLEAR) Urine pH (5.0-9.0) Ur Specific [place] (1.005-1.030) Urine Protein (NEGATIVE) Urine Glucose (UA) (NEGATIVE) Urine Ketones (NEGATIVE) Urine Occult Blood (NEGATIVE) Urine Nitrite (NEGATIVE) Urine Bilirubin (NEGATIVE) Urine Urobilinogen (0.2-1.0) mg/dL Ur Leukocyte Esterase (NEGATIVE) Urine RBC /HPF Urine WBC (0-5/HPF) /HPF Ur Epithelial Cells (NOT SEEN) /HPF Urine Bacteria (0-FEW/HPF) /HPF SARS-CoV-2 RNA (ARI) (NEGATIVE) 03/16/21 03/16/21 03/16/21 Range/Units 07:25 07:55 11:11 WBC (5.0-10.0) 10^3/uL RBC (4.2-5.4) 10^6/uL Hgb (12.0-16.0) g/dL Hct (37.0-47.0) % MCV (80-100) fL MCH (27.0-34.0) pg MCHC (33.0-35.0) g/dL Plt Count (150-450) 10^3/uL Neut % (Auto) (42.2-75.2) % Lymph % (Auto) (20.5-50.1) % [place] % (Auto) (2-8) % Eos % (Auto) (1.0-3.0) % Baso % (Auto) (0.0-1.0) % Sodium (136-145) mmol/L Potassium (3.5-5.1) mmol/L Chloride (98-107) mmol/L Carbon Dioxide (21-32) mmol/L Anion Gap (7-13) mEq/L BUN (7-18) mg/dL Creatinine (0.55-1.02) mg/dL Est Cr Clr Drug Dosing Estimated GFR (MDRD) BUN/Creatinine Ratio (No establ ref range) Glucose (70-99) mg/dL POC Glucose (70-99) mg/dL Lactic Acid (0.4-2.0) mmol/L Calcium (8.5-10.1) mg/dL Magnesium (1.8-2.4) mg/dL Iron 20 L (50-175) ug/dL TIBC 299 (250-450) ug/dL % Saturation 6.7 L (20.0-50.0) % Ferritin 15 (8-252) mg/mL Total Bilirubin (0.2-1.0) mg/dL AST (15-37) U/L ALT (14-59) U/L Alkaline Phosphatase (46-116) U/L Total Protein (6.4-8.2) g/dL Albumin (3.4-5.0) g/dL Globulin Albumin/Globulin Ratio Urine Color Yellow (YELLOW) Urine Appearance Clear (CLEAR) Urine pH 8.5 (5.0-9.0) Ur Specific [place] 1.020 (1.005-1.030) Urine Protein Negative (NEGATIVE) Urine Glucose (UA) Negative (NEGATIVE) Urine Ketones Negative (NEGATIVE) Urine Occult Blood Small H (NEGATIVE) Urine Nitrite Negative (NEGATIVE) Urine Bilirubin Negative (NEGATIVE) Urine Urobilinogen 0.2 (0.2-1.0) mg/dL Ur Leukocyte Esterase Negative (NEGATIVE) Urine RBC 0-5 /HPF Urine WBC 0-5 (0-5/HPF) /HPF Ur Epithelial Cells Few (NOT SEEN) /HPF Urine Bacteria Few (0-FEW/HPF) /HPF SARS-CoV-2 RNA (ARI) Negative (NEGATIVE) 03/16/21 03/16/21 03/17/21 Range/Units 17:00 21:16 06:18 WBC 3.3 L (5.0-10.0) 10^3/uL RBC 3.33 L (4.2-5.4) 10^6/uL Hgb 8.1 L (12.0-16.0) g/dL Hct 27.2 L (37.0-47.0) % MCV 81.7 (80-100) fL MCH 24.3 L (27.0-34.0) pg MCHC 29.8 L (33.0-35.0) g/dL Plt Count 145 L (150-450) 10^3/uL Neut % (Auto) 64.3 (42.2-75.2) % Lymph % (Auto) 23.0 (20.5-50.1) % [place] % (Auto) 10.0 H (2-8) % Eos % (Auto) 2.1 (1.0-3.0) % Baso % (Auto) 0.6 (0.0-1.0) % Sodium (136-145) mmol/L Potassium (3.5-5.1) mmol/L Chloride (98-107) mmol/L Carbon Dioxide (21-32) mmol/L Anion Gap (7-13) mEq/L BUN (7-18) mg/dL Creatinine (0.55-1.02) mg/dL Est Cr Clr Drug Dosing Estimated GFR (MDRD) BUN/Creatinine Ratio (No establ ref range) Glucose (70-99) mg/dL POC Glucose 111 H 132 H (70-99) mg/dL Lactic Acid (0.4-2.0) mmol/L Calcium (8.5-10.1) mg/dL Magnesium (1.8-2.4) mg/dL Iron (50-175) ug/dL TIBC (250-450) ug/dL % Saturation (20.0-50.0) % Ferritin (8-252) mg/mL Total Bilirubin (0.2-1.0) mg/dL AST (15-37) U/L ALT (14-59) U/L Alkaline Phosphatase (46-116) U/L Total Protein (6.4-8.2) g/dL Albumin (3.4-5.0) g/dL Globulin Albumin/Globulin Ratio Urine Color (YELLOW) Urine Appearance (CLEAR) Urine pH (5.0-9.0) Ur Specific [place] (1.005-1.030) Urine Protein (NEGATIVE) Urine Glucose (UA) (NEGATIVE) Urine Ketones (NEGATIVE) Urine Occult Blood (NEGATIVE) Urine Nitrite (NEGATIVE) Urine Bilirubin (NEGATIVE) Urine Urobilinogen (0.2-1.0) mg/dL Ur Leukocyte Esterase (NEGATIVE) Urine RBC /HPF Urine WBC (0-5/HPF) /HPF Ur Epithelial Cells (NOT SEEN) /HPF Urine Bacteria (0-FEW/HPF) /HPF SARS-CoV-2 RNA (ARI) (NEGATIVE) 03/17/21 Range/Units 06:18 WBC (5.0-10.0) 10^3/uL RBC (4.2-5.4) 10^6/uL Hgb (12.0-16.0) g/dL Hct (37.0-47.0) % MCV (80-100) fL MCH (27.0-34.0) pg MCHC (33.0-35.0) g/dL Plt Count (150-450) 10^3/uL Neut % (Auto) (42.2-75.2) % Lymph % (Auto) (20.5-50.1) % [place] % (Auto) (2-8) % Eos % (Auto) (1.0-3.0) % Baso % (Auto) (0.0-1.0) % Sodium (136-145) mmol/L Potassium (3.5-5.1) mmol/L Chloride (98-107) mmol/L Carbon Dioxide (21-32) mmol/L Anion Gap (7-13) mEq/L BUN (7-18) mg/dL Creatinine (0.55-1.02) mg/dL Est Cr Clr Drug Dosing Estimated GFR (MDRD) BUN/Creatinine Ratio (No establ ref range) Glucose (70-99) mg/dL POC Glucose (70-99) mg/dL Lactic Acid (0.4-2.0) mmol/L Calcium (8.5-10.1) mg/dL Magnesium 1.6 L (1.8-2.4) mg/dL Iron (50-175) ug/dL TIBC (250-450) ug/dL % Saturation (20.0-50.0) % Ferritin (8-252) mg/mL Total Bilirubin (0.2-1.0) mg/dL AST (15-37) U/L ALT (14-59) U/L Alkaline Phosphatase (46-116) U/L Total Protein (6.4-8.2) g/dL Albumin (3.4-5.0) g/dL Globulin Albumin/Globulin Ratio Urine Color (YELLOW) Urine Appearance (CLEAR) Urine pH (5.0-9.0) Ur Specific [place] (1.005-1.030) Urine Protein (NEGATIVE) Urine Glucose (UA) (NEGATIVE) Urine Ketones (NEGATIVE) Urine Occult Blood (NEGATIVE) Urine Nitrite (NEGATIVE) Urine Bilirubin (NEGATIVE) Urine Urobilinogen (0.2-1.0) mg/dL Ur Leukocyte Esterase (NEGATIVE) Urine RBC /HPF Urine WBC (0-5/HPF) /HPF Ur Epithelial Cells (NOT SEEN) /HPF Urine Bacteria (0-FEW/HPF) /HPF SARS-CoV-2 RNA (ARI) (NEGATIVE) Justin Results Last 24 Hours: Microbiology 03/16/21 09:10 Stool Occult Blood (JUSTIN) - Final Stool / Feces NEGATIVE OCCULT BLOOD REFERENCE RANGE: NEGATIVE Med Orders - Current: Current Medications Acetaminophen (Acetaminophen 325 Mg Tab) 650 mg PO Q4H PRN PRN Reason: Pain (Mild 1-3)/fever Hydrocodone Bitart/Acetaminophen (Acetaminophen/Hydrocodone 325-10 Mg Tab) 1 tab PO Q8HR PRN PRN Reason: Pain (severe 7-10) Last Admin: 03/16/21 22:09 Dose: 1 tab Documented by: Ascorbic Acid (Ascorbic Acid 500 Mg Tab) 500 mg PO DAILY@0800 [facility] Dextrose/Water (50% Dextrose In Water 50 Ml Syringe) 50 ml IVPUSH Q15M PRN PRN Reason: Hypoglycemia Ferrous Sulfate (Ferrous Sulfate 325 Mg Tab) 325 mg PO BIDMEALS [facility] Last Admin: 03/16/21 17:55 Dose: 325 mg Documented by: Glucagon (Glucagon,Human Recombinant 1 Mg Vial) 1 mg IM Q15M PRN PRN Reason: Hypoglycemia Sodium Chloride (Normal Saline) 1,000 mls @ 75 mls/hr IV ASDIRECTED [facility] Last Admin: 03/17/21 02:39 Dose: 75 mls/hr Documented by: Magnesium Sulfate 2 gm/ Premix 50 mls @ 25 mls/hr IV ONETIME ONE Stop: 03/17/21 09:36 Insulin Human Lispro (Insulin Lispro 100 Units/Ml 3 Ml Vial) 0 unit SUBCUT WITHMEALSANDBED [facility]; Protocol Last Admin: 03/16/21 22:11 Dose: Not Given Documented by: Latanoprost (Latanoprost 0.005% Ophth Soln 2.5 Ml Bottle) 2.5 ml EYERT BEDTIME [facility] Levothyroxine Sodium (Levothyroxine 150 Mcg Tab) 150 mcg PO ACBREAKFAST [facility] Last Admin: 03/17/21 06:03 Dose: 150 mcg Documented by: Levothyroxine Sodium (Levothyroxine 25 Mcg Tab) 25 mcg PO ACBREAKFAST [facility] Last Admin: 03/17/21 06:03 Dose: 25 mcg Documented by: Metformin HCl (Metformin 500 Mg Tab) 250 mg PO BIDMEALS [facility] Last Admin: 03/16/21 17:53 Dose: 250 mg Documented by: Morphine Sulfate (Morphine 15 Mg Tab.Er) 45 mg PO BID [facility] Last Admin: 03/16/21 21:59 Dose: 45 mg Documented by: Non-Formulary Medication (L Acidophil/B Lactis/B Longum [Florajen Digest 15 B Cell Cap]) 1 cap PO DAILY [facility] Non-Formulary Medication (Lansoprazole [Prevacid]) 30 mg PO DAILY [facility] Ondansetron HCl (Ondansetron 4 Mg/2 Ml Sdv) 4 mg IVPUSH Q4H PRN PRN Reason: Nausea/Vomiting Sertraline HCl (Sertraline 50 Mg Tab) 200 mg PO WITHDINNER [facility] Last Admin: 03/16/21 17:52 Dose: 200 mg Documented by: Sodium Chloride (Sodium Chloride 0.9% 10 Ml Syringe) 10 ml FLUSH ASDIRECTED PRN PRN Reason: Keep Vein Open Vancomycin HCl (Vancomycin 125 Mg Cap) 250 mg PO QID [facility] Last Admin: 03/16/21 21:58 Dose: 250 mg Documented by: Discontinued Medications Aspirin (Aspirin 81 Mg Tab.Ec) 81 mg PO DAILY [facility] Magnesium Sulfate 2 gm/ Premix 50 mls @ 25 mls/hr IV ONETIME ONE Stop: 03/16/21 10:14 Last Admin: 03/16/21 08:40 Dose: 25 mls/hr Documented by: Magnesium Sulfate 2 gm/ Premix 50 mls @ 25 mls/hr IV ONETIME ONE Stop: 03/16/21 16:59 Morphine Sulfate (Morphine 15 Mg Tab.Er) 15 mg PO ONETIME ONE Stop: 03/16/21 09:59 Last Admin: 03/16/21 11:09 Dose: Not Given Documented by: Morphine Sulfate (Morphine 15 Mg Tab.Er) 45 mg PO ONETIME ONE Stop: 03/16/21 09:59 Last Admin: 03/16/21 11:09 Dose: 45 mg Documented by: - Exam General: Alert, Oriented HEENT: Pupils Equal, Pupils Reactive, EOMI, Mucous Membr. Moist/[place] Neck: Supple Lungs: Clear to Auscultation, Normal Respiratory Effort Cardiovascular: Regular Rate, Regular Rhythm GI/Abdominal Exam: Normal Bowel Sounds, Soft, Non-Tender, No Organomegaly, No Distention, No Abnormal Bruit, No Mass, Pelvis Stable Back Exam: Normal Inspection, Full Range of Motion Extremities: Normal Inspection, Normal Range of Motion, Non-Tender, No Pedal Edema, Normal Capillary Refill Peripheral Pulses: 2+: Carotid (L), Carotid (R), Brachial (L), Brachial (R), Radial (L), Radial (R), Femoral (L), Femoral (R), Popliteal (L), Popliteal (R), Posterior Tibial (L), Posterior Tibial (R), Dorsalis Pedis (L), Dorsalis Pedis (R) Skin: Warm, Dry, Intact Wound/Incisions: Healing Well Neurological: No New Focal Deficit Psy/Mental Status: Alert, Normal Affect, Normal Mood - Patient Data Lab Results Last 24 hrs: Laboratory Results - last 24 hr 03/16/21 03/16/21 03/16/21 Range/Units 07:25 07:25 07:25 WBC 3.4 L (5.0-10.0) 10^3/uL RBC 3.55 L (4.2-5.4) 10^6/uL Hgb 8.8 L (12.0-16.0) g/dL Hct 28.9 L (37.0-47.0) % MCV 81.4 D (80-100) fL MCH 24.8 L (27.0-34.0) pg MCHC 30.4 L (33.0-35.0) g/dL Plt Count 141 L (150-450) 10^3/uL Neut % (Auto) 70.0 (42.2-75.2) % Lymph % (Auto) 17.8 L (20.5-50.1) % [place] % (Auto) 10.4 H (2-8) % Eos % (Auto) 1.5 (1.0-3.0) % Baso % (Auto) 0.3 (0.0-1.0) % Sodium 136 (136-145) mmol/L Potassium 3.9 (3.5-5.1) mmol/L Chloride 96 L (98-107) mmol/L Carbon Dioxide 32 (21-32) mmol/L Anion Gap 11.9 (7-13) mEq/L BUN 8 (7-18) mg/dL Creatinine 0.66 (0.55-1.02) mg/dL Est Cr Clr Drug Dosing TNP Estimated GFR (MDRD) > 60 BUN/Creatinine Ratio 12.1 (No establ ref range) Glucose 120 H (70-99) mg/dL POC Glucose (70-99) mg/dL Lactic Acid 1.2 (0.4-2.0) mmol/L Calcium 8.7 (8.5-10.1) mg/dL Magnesium 1.5 L (1.8-2.4) mg/dL Iron (50-175) ug/dL TIBC (250-450) ug/dL % Saturation (20.0-50.0) % Ferritin (8-252) mg/mL Total Bilirubin 0.5 (0.2-1.0) mg/dL AST 20 (15-37) U/L ALT 17 (14-59) U/L Alkaline Phosphatase 75 (46-116) U/L Total Protein 6.9 (6.4-8.2) g/dL Albumin 3.4 (3.4-5.0) g/dL Globulin 3.5 Albumin/Globulin Ratio 1.0 Urine Color (YELLOW) Urine Appearance (CLEAR) Urine pH (5.0-9.0) Ur Specific [place] (1.005-1.030) Urine Protein (NEGATIVE) Urine Glucose (UA) (NEGATIVE) Urine Ketones (NEGATIVE) Urine Occult Blood (NEGATIVE) Urine Nitrite (NEGATIVE) Urine Bilirubin (NEGATIVE) Urine Urobilinogen (0.2-1.0) mg/dL Ur Leukocyte Esterase (NEGATIVE) Urine RBC /HPF Urine WBC (0-5/HPF) /HPF Ur Epithelial Cells (NOT SEEN) /HPF Urine Bacteria (0-FEW/HPF) /HPF SARS-CoV-2 RNA (ARI) (NEGATIVE) 03/16/21 03/16/21 03/16/21 Range/Units 07:25 07:55 11:11 WBC (5.0-10.0) 10^3/uL RBC (4.2-5.4) 10^6/uL Hgb (12.0-16.0) g/dL Hct (37.0-47.0) % MCV (80-100) fL MCH (27.0-34.0) pg MCHC (33.0-35.0) g/dL Plt Count (150-450) 10^3/uL Neut % (Auto) (42.2-75.2) % Lymph % (Auto) (20.5-50.1) % [place] % (Auto) (2-8) % Eos % (Auto) (1.0-3.0) % Baso % (Auto) (0.0-1.0) % Sodium (136-145) mmol/L Potassium (3.5-5.1) mmol/L Chloride (98-107) mmol/L Carbon Dioxide (21-32) mmol/L Anion Gap (7-13) mEq/L BUN (7-18) mg/dL Creatinine (0.55-1.02) mg/dL Est Cr Clr Drug Dosing Estimated GFR (MDRD) BUN/Creatinine Ratio (No establ ref range) Glucose (70-99) mg/dL POC Glucose (70-99) mg/dL Lactic Acid (0.4-2.0) mmol/L Calcium (8.5-10.1) mg/dL Magnesium (1.8-2.4) mg/dL Iron 20 L (50-175) ug/dL TIBC 299 (250-450) ug/dL % Saturation 6.7 L (20.0-50.0) % Ferritin 15 (8-252) mg/mL Total Bilirubin (0.2-1.0) mg/dL AST (15-37) U/L ALT (14-59) U/L Alkaline Phosphatase (46-116) U/L Total Protein (6.4-8.2) g/dL Albumin (3.4-5.0) g/dL Globulin Albumin/Globulin Ratio Urine Color Yellow (YELLOW) Urine Appearance Clear (CLEAR) Urine pH 8.5 (5.0-9.0) Ur Specific [place] 1.020 (1.005-1.030) Urine Protein Negative (NEGATIVE) Urine Glucose (UA) Negative (NEGATIVE) Urine Ketones Negative (NEGATIVE) Urine Occult Blood Small H (NEGATIVE) Urine Nitrite Negative (NEGATIVE) Urine Bilirubin Negative (NEGATIVE) Urine Urobilinogen 0.2 (0.2-1.0) mg/dL Ur Leukocyte Esterase Negative (NEGATIVE) Urine RBC 0-5 /HPF Urine WBC 0-5 (0-5/HPF) /HPF Ur Epithelial Cells Few (NOT SEEN) /HPF Urine Bacteria Few (0-FEW/HPF) /HPF SARS-CoV-2 RNA (ARI) Negative (NEGATIVE) 03/16/21 03/16/21 03/17/21 Range/Units 17:00 21:16 06:18 WBC 3.3 L (5.0-10.0) 10^3/uL RBC 3.33 L (4.2-5.4) 10^6/uL Hgb 8.1 L (12.0-16.0) g/dL Hct 27.2 L (37.0-47.0) % MCV 81.7 (80-100) fL MCH 24.3 L (27.0-34.0) pg MCHC 29.8 L (33.0-35.0) g/dL Plt Count 145 L (150-450) 10^3/uL Neut % (Auto) 64.3 (42.2-75.2) % Lymph % (Auto) 23.0 (20.5-50.1) % [place] % (Auto) 10.0 H (2-8) % Eos % (Auto) 2.1 (1.0-3.0) % Baso % (Auto) 0.6 (0.0-1.0) % Sodium (136-145) mmol/L Potassium (3.5-5.1) mmol/L Chloride (98-107) mmol/L Carbon Dioxide (21-32) mmol/L Anion Gap (7-13) mEq/L BUN (7-18) mg/dL Creatinine (0.55-1.02) mg/dL Est Cr Clr Drug Dosing Estimated GFR (MDRD) BUN/Creatinine Ratio (No establ ref range) Glucose (70-99) mg/dL POC Glucose 111 H 132 H (70-99) mg/dL Lactic Acid (0.4-2.0) mmol/L Calcium (8.5-10.1) mg/dL Magnesium (1.8-2.4) mg/dL Iron (50-175) ug/dL TIBC (250-450) ug/dL % Saturation (20.0-50.0) % Ferritin (8-252) mg/mL Total Bilirubin (0.2-1.0) mg/dL AST (15-37) U/L ALT (14-59) U/L Alkaline Phosphatase (46-116) U/L Total Protein (6.4-8.2) g/dL Albumin (3.4-5.0) g/dL Globulin Albumin/Globulin Ratio Urine Color (YELLOW) Urine Appearance (CLEAR) Urine pH (5.0-9.0) Ur Specific [place] (1.005-1.030) Urine Protein (NEGATIVE) Urine Glucose (UA) (NEGATIVE) Urine Ketones (NEGATIVE) Urine Occult Blood (NEGATIVE) Urine Nitrite (NEGATIVE) Urine Bilirubin (NEGATIVE) Urine Urobilinogen (0.2-1.0) mg/dL Ur Leukocyte Esterase (NEGATIVE) Urine RBC /HPF Urine WBC (0-5/HPF) /HPF Ur Epithelial Cells (NOT SEEN) /HPF Urine Bacteria (0-FEW/HPF) /HPF SARS-CoV-2 RNA (ARI) (NEGATIVE) 03/17/21 Range/Units 06:18 WBC (5.0-10.0) 10^3/uL RBC (4.2-5.4) 10^6/uL Hgb (12.0-16.0) g/dL Hct (37.0-47.0) % MCV (80-100) fL MCH (27.0-34.0) pg MCHC (33.0-35.0) g/dL Plt Count (150-450) 10^3/uL Neut % (Auto) (42.2-75.2) % Lymph % (Auto) (20.5-50.1) % [place] % (Auto) (2-8) % Eos % (Auto) (1.0-3.0) % Baso % (Auto) (0.0-1.0) % Sodium (136-145) mmol/L Potassium (3.5-5.1) mmol/L Chloride (98-107) mmol/L Carbon Dioxide (21-32) mmol/L Anion Gap (7-13) mEq/L BUN (7-18) mg/dL Creatinine (0.55-1.02) mg/dL Est Cr Clr Drug Dosing Estimated GFR (MDRD) BUN/Creatinine Ratio (No establ ref range) Glucose (70-99) mg/dL POC Glucose (70-99) mg/dL Lactic Acid (0.4-2.0) mmol/L Calcium (8.5-10.1) mg/dL Magnesium 1.6 L (1.8-2.4) mg/dL Iron (50-175) ug/dL TIBC (250-450) ug/dL % Saturation (20.0-50.0) % Ferritin (8-252) mg/mL Total Bilirubin (0.2-1.0) mg/dL AST (15-37) U/L ALT (14-59) U/L Alkaline Phosphatase (46-116) U/L Total Protein (6.4-8.2) g/dL Albumin (3.4-5.0) g/dL Globulin Albumin/Globulin Ratio Urine Color (YELLOW) Urine Appearance (CLEAR) Urine pH (5.0-9.0) Ur Specific [place] (1.005-1.030) Urine Protein (NEGATIVE) Urine Glucose (UA) (NEGATIVE) Urine Ketones (NEGATIVE) Urine Occult Blood (NEGATIVE) Urine Nitrite (NEGATIVE) Urine Bilirubin (NEGATIVE) Urine Urobilinogen (0.2-1.0) mg/dL Ur Leukocyte Esterase (NEGATIVE) Urine RBC /HPF Urine WBC (0-5/HPF) /HPF Ur Epithelial Cells (NOT SEEN) /HPF Urine Bacteria (0-FEW/HPF) /HPF SARS-CoV-2 RNA (ARI) (NEGATIVE) Result Diagrams: 03/17/21 06:18 03/16/21 07:25 Justin Results Last 24 hrs: Microbiology 03/16/21 09:10 Stool Occult Blood (JUSTIN) - Final Stool / Feces NEGATIVE OCCULT BLOOD REFERENCE RANGE: NEGATIVE Sepsis Event Note - Evaluation Sepsis Screening Result: No Definite Risk - Focused Exam Vital Signs: Vital Signs Temp Pulse Resp BP BP Pulse Ox 03/17/21 07:40 97.1 F 80 23 H 122/61 99 03/17/21 03:30 97.6 F 89 20 132/50 L 97 03/16/21 22:00 98 F 91 20 145/64 H 91 L - Problem List Review Problem List Initiated/Reviewed/Updated: Yes - My Orders Last 24 Hours: My Active Orders 03/16/21 Lunch Consistent Carbohydrate Diet [DIET] 03/16/21 13:13 Blood Glucose Check, Bedside [RC] WITHMEALSANDBED Up With Assistance [RC] ASDIRECTED Vital Signs [RC] 00,04,08,12,16,20 Consult to Case Management/Forestry Faculty Member [CONS] Routine OT Evaluation and Treatment [CONS] Routine PT Evaluation and Treatment [CONS] Routine Acetaminophen [TylenoL] 650 mg PO Q4H PRN Ondansetron [Zofran] 4 mg IVPUSH Q4H PRN Sodium Chloride 0.9% [Saline Flush] 10 ml FLUSH ASDIRECTED PRN Peripheral IV Insertion Adult [OM.PC] Routine Sequential Compression Device [OM.PC] Per Unit Routine Resuscitation Status Routine 03/16/21 13:14 Antiembolic Devices [RC] ,20 Peripheral IV Care [RC] ,20 03/16/21 13:15 Sodium Chloride 0.9% [Normal Saline] 1,000 ml IV ASDIRECTED 03/16/21 13:16 Dextrose 50% in Water 50 ml IVPUSH Q15M PRN Glucagon,Human Recombinant [GlucaGen] 1 mg IM Q15M PRN 03/16/21 13:17 Wound Care [RC] 03/16/21 14:00 Vancomycin [Vancocin 125 MG Capsule] 250 mg PO QID 03/16/21 15:12 Acetaminophen/HYDROcodone [Parkin 325-10 MG] 1 tab PO Q8HR PRN 03/16/21 18:00 Ferrous Sulfate 325 mg PO BIDMEALS Insulin Lispro [HumaLOG] See Protocol SUBCUT WITHMEALSANDBED Sertraline [Zoloft] 200 mg PO WITHDINNER metFORMIN [Glucophage] 250 mg PO BIDMEALS 03/16/21 21:00 Latanoprost [Xalatan 0.005% Oph Soln] 2.5 ml EYERT BEDTIME Morphine [MS Contin] 45 mg PO BID 03/17/21 06:00 Levothyroxine 150 mcg PO ACBREAKFAST Levothyroxine 25 mcg PO ACBREAKFAST 03/17/21 07:37 Communication Order [RC] 08,20 Magnesium Sulfate/Water [Magnesium Sulfate in Water 2 GM/50 ML] 2 gm Premix Bag 1 bag IV ONETIME 03/17/21 08:00 Ascorbic Acid [Vitamin C] 500 mg PO DAILY@0800 03/17/21 09:00 L Acidophil/B Lactis/B Longum [Florajen Digest 15 B Cell Cap] 1 cap PO DAILY Lansoprazole [Prevacid] 30 mg PO DAILY 03/18/21 05:00 CBC WITH AUTO DIFF [HEME] Routine MAGNESIUM [CHEM] Routine - Plan Plan:: Surgical History: Appendectomy, bilateral cataract surgery, right hip surgery Family History: Cancer, stroke, diabetes, coronary artery disease Social History: Tobacco: Former smoker Alcohol: Denies. Patient has remote history of alcohol use Caffeine: Coffee, tea Drugs: Never Allergies: Per medical records: Sulfa, adhesive tape, Nexium, lactose, Demerol, niacin, nitrofurantoin Code Status: DNR, DNI Assessment / Plan: C. difficile colitis. Vancomycin 250 mg p.o. 4 times daily plus IV normal saline 75 mils per hour Hypomagnesemia. Will monitor magnesium levels intermittently and supplement as necessary Hypothyroidism. Synthroid 175 mcg p.o. daily Osteoarthritis Depression. Zoloft 200 mg p.o. nightly Anxiety Diverticulosis Osteopenia Glaucoma. Xalatan 0.005%: 1 drop in the right eye nightly Chronic pain. Morphine sulfate 45 mg p.o. twice daily Pancytopenia with features of iron deficiency anemia. Will monitor hemoglobin level, leukocyte count, platelet count intermittently with CBC. Ferrous sulfate 305 mg p.o. twice daily plus vitamin C 500 mg p.o. daily Coronary artery disease Diabetes. Will check fingerstick glucose before every meal and at bedtime and provide some sign scale plus Metformin 250 mg p.o. twice daily GERD. Prevacid 30 mg p.o. daily Hypertension Obesity. Patient becomes regarding left eye modification History of CVA Rheumatoid arthritis Neuropathy History of cholelithiasis Degenerative disc disease Macular degeneration Bilateral lower extremity ulcer. We will continue wound care per home regimen DVT prophylaxis. Bilateral SCD Disposition: Anticipate discharge in 24 to 48 hours and/or once patient's diarrhea decreases in frequency and has thickened consistency END OF DOCTOR EMAMIS HISTORY AND PHYSICAL / CONSULTATION NOTE
[2021-03-17] MEDS: Morphine 15 MG Tab.ER PO SCH ×2 (08:46→21:17)
[2021-03-17] MEDS: Ascorbic Acid 500 MG Tab PO SCH (08:48)
[2021-03-17] MEDS: metFORMIN 500 MG Tab PO SCH ×2 (08:48→18:18)
[2021-03-17] MEDS: Ferrous Sulfate 325 MG Tab PO SCH ×2 (08:48→18:18)
[2021-03-17] MEDS: Insulin Lispro 100 Units/ML 3 ML Vial SUBCUT SCH ×4 (08:49→21:18)
[2021-03-17] MEDS ORDERED: Aspirin 81 MG Tab.EC PO SCH (09:00)
[2021-03-17] MEDS ORDERED: Non-Formulary Medication 1 Each (Lansoprazole [Prevacid] 30 MG Capsule.Dr) PO SCH (09:00)
[2021-03-17] MEDS: Vancomycin 125 MG Cap PO SCH ×4 (10:13→21:16)
[2021-03-17] MEDS: Acetaminophen/HYDROcodone 325-10 MG Tab PO PRN ×2 (12:54→22:06)
[2021-03-17] MEDS: Saccharomyces Boulardii (Probiotic) 250 MG Cap PO SCH (12:54)
[2021-03-17] MEDS: Sertraline 50 MG Tab PO SCH (18:18)
[2021-03-17] MEDS: Latanoprost 0.005% Ophth Soln 2.5 ML Bottle EYERT SCH (21:15)
[2021-03-18] MEDS: Levothyroxine 150 MCG Tab PO SCH (06:00)
[2021-03-18] MEDS: Levothyroxine 25 MCG Tab PO SCH (06:00)
[2021-03-18] MEDS ORDERED: Magnesium Sulfate/Water 2 GM in Premix Bag 1 BAG IV ONE (07:22)
--- NOTE | 2021-03-18 07:29 | PCM.PN ---
- General Info Date of Service: 03/18/21 Subjective Update: The patient states that she is feeling much better. Per nursing staff, she only had 2 episodes of diarrhea overnight which represents a marked decrease in frequ ency. The patient denies fever, rigors, nausea, vomiting, cough, wheeze, abdominal pain, chest pain, dyspnea, or any other constitutional complaints. I explained to the patient her current medical condition and plan of care and I have answered all of her questions. Please note that the patient is very hard of hearing and I am uncertain as to whether all information was conveyed to her - Review of Systems General: Reports: No Symptoms HEENT: Reports: No Symptoms Pulmonary: Reports: No Symptoms Cardiovascular: Reports: No Symptoms Gastrointestinal: Reports: Diarrhea. Denies: No Symptoms Genitourinary: Reports: No Symptoms Musculoskeletal: Reports: No Symptoms Skin: Reports: No Symptoms Neurological: Reports: No Symptoms Psychiatric: Reports: No Symptoms - Patient Data Vitals - Most Recent: Last Vital Signs Temp 98.3 F 03/18/21 04:00 Pulse 87 03/18/21 04:00 Resp 18 03/18/21 04:00 BP 151/79 H 03/18/21 04:00 Pulse Ox 100 03/18/21 04:00 Weight - Most Recent: 138 lb 1.6 oz I&O - Last 24 Hours: Intake & Output 03/17/21 03/18/21 03/18/21 22:59 06:59 14:59 Intake Total 100 Output Total 400 1900 Balance -300 -1900 Lab Results Last 24 Hours: Laboratory Results - last 24 hr 03/17/21 03/17/21 03/17/21 Range/Units 07:50 11:50 17:04 WBC (5.0-10.0) 10^3/uL RBC (4.2-5.4) 10^6/uL Hgb (12.0-16.0) g/dL Hct (37.0-47.0) % MCV (80-100) fL MCH (27.0-34.0) pg MCHC (33.0-35.0) g/dL Plt Count (150-450) 10^3/uL Neut % (Auto) (42.2-75.2) % Lymph % (Auto) (20.5-50.1) % [place] % (Auto) (2-8) % Eos % (Auto) (1.0-3.0) % Baso % (Auto) (0.0-1.0) % POC Glucose 100 H 122 H 133 H (70-99) mg/dL Magnesium (1.8-2.4) mg/dL 03/17/21 03/18/21 03/18/21 Range/Units 21:05 06:21 06:21 WBC 4.5 L (5.0-10.0) 10^3/uL RBC 3.81 L (4.2-5.4) 10^6/uL Hgb 9.5 L (12.0-16.0) g/dL Hct 30.9 L (37.0-47.0) % MCV 81.1 (80-100) fL MCH 24.9 L (27.0-34.0) pg MCHC 30.7 L (33.0-35.0) g/dL Plt Count 198 (150-450) 10^3/uL Neut % (Auto) 72.6 (42.2-75.2) % Lymph % (Auto) 14.3 L (20.5-50.1) % [place] % (Auto) 10.5 H (2-8) % Eos % (Auto) 2.4 (1.0-3.0) % Baso % (Auto) 0.2 (0.0-1.0) % POC Glucose 120 H (70-99) mg/dL Magnesium 1.6 L (1.8-2.4) mg/dL Med Orders - Current: Current Medications Acetaminophen (Acetaminophen 325 Mg Tab) 650 mg PO Q4H PRN PRN Reason: Pain (Mild 1-3)/fever Hydrocodone Bitart/Acetaminophen (Acetaminophen/Hydrocodone 325-10 Mg Tab) 1 tab PO Q8HR PRN PRN Reason: Pain (severe 7-10) Last Admin: 03/17/21 22:06 Dose: 1 tab Documented by: Ascorbic Acid (Ascorbic Acid 500 Mg Tab) 500 mg PO DAILY@0800 [facility] Last Admin: 03/17/21 08:48 Dose: 500 mg Documented by: Dextrose/Water (50% Dextrose In Water 50 Ml Syringe) 50 ml IVPUSH Q15M PRN PRN Reason: Hypoglycemia Ferrous Sulfate (Ferrous Sulfate 325 Mg Tab) 325 mg PO BIDMEALS [facility] Last Admin: 03/17/21 18:18 Dose: 325 mg Documented by: Glucagon (Glucagon,Human Recombinant 1 Mg Vial) 1 mg IM Q15M PRN PRN Reason: Hypoglycemia Hydralazine HCl (Hydralazine 25 Mg Tab) 50 mg PO Q8H [facility] Sodium Chloride (Normal Saline) 1,000 mls @ 75 mls/hr IV ASDIRECTED [facility] Last Admin: 03/17/21 18:20 Dose: 75 mls/hr Documented by: Magnesium Sulfate 2 gm/ Premix 50 mls @ 25 mls/hr IV ONETIME ONE Stop: 03/18/21 09:21 Insulin Human Lispro (Insulin Lispro 100 Units/Ml 3 Ml Vial) 0 unit SUBCUT WITHMEALSANDBED [facility]; Protocol Last Admin: 03/17/21 21:18 Dose: Not Given Documented by: Latanoprost (Latanoprost 0.005% Ophth Soln 2.5 Ml Bottle) 0 ml EYERT BEDTIME [facility] Last Admin: 03/17/21 21:15 Dose: 1 drop Documented by: Levothyroxine Sodium (Levothyroxine 150 Mcg Tab) 150 mcg PO ACBREAKFAST [facility] Last Admin: 03/18/21 06:00 Dose: 150 mcg Documented by: Levothyroxine Sodium (Levothyroxine 25 Mcg Tab) 25 mcg PO ACBREAKFAST [facility] Last Admin: 03/18/21 06:00 Dose: 25 mcg Documented by: Metformin HCl (Metformin 500 Mg Tab) 250 mg PO BIDMEALS [facility] Last Admin: 03/17/21 18:18 Dose: 250 mg Documented by: Morphine Sulfate (Morphine 15 Mg Tab.Er) 45 mg PO BID [facility] Last Admin: 03/17/21 21:17 Dose: 45 mg Documented by: Ondansetron HCl (Ondansetron 4 Mg/2 Ml Sdv) 4 mg IVPUSH Q4H PRN PRN Reason: Nausea/Vomiting Saccharomyces Boulardii (Saccharomyces Boulardii (Probiotic) 250 Mg Cap) 500 mg PO DAILY [facility] Last Admin: 03/17/21 12:54 Dose: 500 mg Documented by: Sertraline HCl (Sertraline 50 Mg Tab) 200 mg PO WITHDINNER [facility] Last Admin: 03/17/21 18:18 Dose: 200 mg Documented by: Sodium Chloride (Sodium Chloride 0.9% 10 Ml Syringe) 10 ml FLUSH ASDIRECTED PRN PRN Reason: Keep Vein Open Vancomycin HCl (Vancomycin 125 Mg Cap) 250 mg PO QID [facility] Last Admin: 03/17/21 21:16 Dose: 250 mg Documented by: Discontinued Medications Aspirin (Aspirin 81 Mg Tab.Ec) 81 mg PO DAILY [facility] Magnesium Sulfate 2 gm/ Premix 50 mls @ 25 mls/hr IV ONETIME ONE Stop: 03/16/21 10:14 Last Admin: 03/16/21 08:40 Dose: 25 mls/hr Documented by: Magnesium Sulfate 2 gm/ Premix 50 mls @ 25 mls/hr IV ONETIME ONE Stop: 03/16/21 16:59 Magnesium Sulfate 2 gm/ Premix 50 mls @ 25 mls/hr IV ONETIME ONE Stop: 03/17/21 09:36 Last Admin: 03/17/21 08:49 Dose: 25 mls/hr Documented by: Morphine Sulfate (Morphine 15 Mg Tab.Er) 15 mg PO ONETIME ONE Stop: 03/16/21 09:59 Last Admin: 03/16/21 11:09 Dose: Not Given Documented by: Morphine Sulfate (Morphine 15 Mg Tab.Er) 45 mg PO ONETIME ONE Stop: 03/16/21 09:59 Last Admin: 03/16/21 11:09 Dose: 45 mg Documented by: Non-Formulary Medication (Lansoprazole [Prevacid]) 30 mg PO DAILY [facility] Last Admin: 03/17/21 13:00 Dose: Not Given Documented by: - Exam General: Alert, Oriented HEENT: Pupils Equal, Pupils Reactive, EOMI, Mucous Membr. Moist/[place] Neck: Supple Lungs: Clear to Auscultation, Normal Respiratory Effort Cardiovascular: Regular Rate, Regular Rhythm GI/Abdominal Exam: Normal Bowel Sounds, Soft, Non-Tender, No Organomegaly, No Distention, No Abnormal Bruit, No Mass, Pelvis Stable Back Exam: Normal Inspection, Full Range of Motion Extremities: Normal Inspection, Normal Range of Motion, Non-Tender, No Pedal Edema, Normal Capillary Refill Peripheral Pulses: 2+: Carotid (L), Carotid (R), Brachial (L), Brachial (R), Radial (L), Radial (R), Femoral (L), Femoral (R), Popliteal (L), Popliteal (R), Posterior Tibial (L), Posterior Tibial (R), Dorsalis Pedis (L), Dorsalis Pedis (R) Skin: Warm, Dry, Intact Wound/Incisions: Healing Well Neurological: No New Focal Deficit Psy/Mental Status: Alert, Normal Affect, Normal Mood - Patient Data Lab Results Last 24 hrs: Laboratory Results - last 24 hr 03/17/21 03/17/21 03/17/21 Range/Units 07:50 11:50 17:04 WBC (5.0-10.0) 10^3/uL RBC (4.2-5.4) 10^6/uL Hgb (12.0-16.0) g/dL Hct (37.0-47.0) % MCV (80-100) fL MCH (27.0-34.0) pg MCHC (33.0-35.0) g/dL Plt Count (150-450) 10^3/uL Neut % (Auto) (42.2-75.2) % Lymph % (Auto) (20.5-50.1) % [place] % (Auto) (2-8) % Eos % (Auto) (1.0-3.0) % Baso % (Auto) (0.0-1.0) % POC Glucose 100 H 122 H 133 H (70-99) mg/dL Magnesium (1.8-2.4) mg/dL 03/17/21 03/18/21 03/18/21 Range/Units 21:05 06:21 06:21 WBC 4.5 L (5.0-10.0) 10^3/uL RBC 3.81 L (4.2-5.4) 10^6/uL Hgb 9.5 L (12.0-16.0) g/dL Hct 30.9 L (37.0-47.0) % MCV 81.1 (80-100) fL MCH 24.9 L (27.0-34.0) pg MCHC 30.7 L (33.0-35.0) g/dL Plt Count 198 (150-450) 10^3/uL Neut % (Auto) 72.6 (42.2-75.2) % Lymph % (Auto) 14.3 L (20.5-50.1) % [place] % (Auto) 10.5 H (2-8) % Eos % (Auto) 2.4 (1.0-3.0) % Baso % (Auto) 0.2 (0.0-1.0) % POC Glucose 120 H (70-99) mg/dL Magnesium 1.6 L (1.8-2.4) mg/dL Result Diagrams: 03/18/21 06:21 03/16/21 07:25 Sepsis Event Note - Evaluation Sepsis Screening Result: No Definite Risk - Focused Exam Vital Signs: Vital Signs Temp Pulse Resp BP Pulse Ox 03/18/21 04:00 98.3 F 87 18 151/79 H 100 03/17/21 20:00 98.6 F 95 20 146/74 H 95 - Problem List Review Problem List Initiated/Reviewed/Updated: Yes - My Orders Last 24 Hours: My Active Orders 03/17/21 07:37 Communication Order [RC] 03/17/21 08:00 Ascorbic Acid [Vitamin C] 500 mg PO DAILY@0800 03/17/21 11:45 Saccharomyces Boulardii [Florastor] 500 mg PO DAILY 03/17/21 21:00 Latanoprost [Xalatan 0.005% Ophth Soln] 0 ml EYERT BEDTIME 03/18/21 07:22 Magnesium Sulfate/Water [Magnesium Sulfate in Water 2 GM/50 ML] 2 gm Premix Bag 1 bag IV ONETIME 03/18/21 07:30 hydrALAZINE [Apresoline] 50 mg PO Q8H 03/19/21 05:00 MAGNESIUM [CHEM] Routine - Plan Plan:: Surgical History: Appendectomy, bilateral cataract surgery, right hip surgery Family History: Cancer, stroke, diabetes, coronary artery disease Social History: Tobacco: Former smoker Alcohol: Denies. Patient has remote history of alcohol use Caffeine: Coffee, tea Drugs: Never Allergies: Per medical records: Sulfa, adhesive tape, Nexium, lactose, Demerol, niacin, nitrofurantoin Code Status: DNR, DNI Assessment / Plan: C. difficile colitis. Vancomycin 250 mg p.o. 4 times daily plus IV normal saline 75 mils per hour Hypomagnesemia. Will monitor magnesium levels intermittently and supplement as necessary Hypothyroidism. Synthroid 175 mcg p.o. daily Osteoarthritis Depression. Zoloft 200 mg p.o. nightly Anxiety Diverticulosis Osteopenia Glaucoma. Xalatan 0.005%: 1 drop in the right eye nightly Chronic pain. Morphine sulfate 45 mg p.o. twice daily Pancytopenia with features of iron deficiency anemia. Will monitor hemoglobin level, leukocyte count, platelet count intermittently with CBC. Ferrous sulfate 305 mg p.o. twice daily plus vitamin C 500 mg p.o. daily Coronary artery disease Diabetes. Will check fingerstick glucose before every meal and at bedtime and provide some sign scale plus Metformin 250 mg p.o. twice daily GERD. Prevacid 30 mg p.o. daily Hypertension. Hydralazine 50 mg p.o. 3 times daily Obesity. Patient becomes regarding left eye modification History of CVA Rheumatoid arthritis Neuropathy History of cholelithiasis Degenerative disc disease Macular degeneration Bilateral lower extremity ulcer. We will continue wound care per home regimen DVT prophylaxis. Bilateral SCD Disposition: Patient appears medically stable for discharge on this day of March 18, 2021. I will discuss with case management/social work regarding care home placement END OF DOCTOR EMAMIS HISTORY AND PHYSICAL / CONSULTATION NOTE
[2021-03-18] MEDS: hydrALAZINE 25 MG Tab PO SCH ×3 (08:24→22:38)
[2021-03-18] MEDS: Insulin Lispro 100 Units/ML 3 ML Vial SUBCUT SCH ×4 (08:27→20:41)
[2021-03-18] MEDS: Vancomycin 125 MG Cap PO SCH ×4 (08:39→20:38)
[2021-03-18] MEDS: Saccharomyces Boulardii (Probiotic) 250 MG Cap PO SCH (08:40)
[2021-03-18] MEDS: Ferrous Sulfate 325 MG Tab PO SCH ×2 (08:40→17:01)
[2021-03-18] MEDS: metFORMIN 500 MG Tab PO SCH ×2 (08:41→17:00)
[2021-03-18] MEDS: Ascorbic Acid 500 MG Tab PO SCH (08:42)
[2021-03-18] MEDS: Morphine 15 MG Tab.ER PO SCH ×2 (08:42→20:38)
[2021-03-18] MEDS: Sodium Chloride 0.9% 1,000 ML IV SCH ×2 (08:45→23:50)
[2021-03-18] MEDS: Acetaminophen/HYDROcodone 325-10 MG Tab PO PRN (16:58)
[2021-03-18] MEDS: Sertraline 50 MG Tab PO SCH (17:02)
[2021-03-18] MEDS ORDERED: Morphine 2 MG/ML SYRINGE IVPUSH ONE (20:45)
[2021-03-18] MEDS: Latanoprost 0.005% Ophth Soln 2.5 ML Bottle EYERT SCH (20:50)
[2021-03-19] MEDS: Acetaminophen/HYDROcodone 325-10 MG Tab PO PRN (00:20)
[2021-03-19] MEDS: Levothyroxine 150 MCG Tab PO SCH (05:42)
[2021-03-19] MEDS: Levothyroxine 25 MCG Tab PO SCH (05:42)
[2021-03-19] MEDS ORDERED: Morphine 2 MG/ML SYRINGE SUBCUT PRN (06:08)
[2021-03-19] MEDS ORDERED: Morphine 2 MG/ML SYRINGE IVPUSH PRN ×2 (06:20→08:45)
--- NOTE | 2021-03-19 07:09 | PCM.PN ---
- General Info Date of Service: 03/19/21 Subjective Update: The patient denies fever, rigors, nausea, vomiting, cough, wheeze, abdominal pain, chest pain, dyspnea. Upon further questioning she admits to diffuse low-grade myalgia which has been adequately treated with as needed analgesia. Per nursing staff, patient had 3 episodes of diarrhea overnight. The patient is incredibly hard of hearing and I attempted to explain to her her current medical condition and plan of care Functional Status: Reports: Pain Controlled - Review of Systems General: Reports: No Symptoms HEENT: Reports: No Symptoms Pulmonary: Reports: No Symptoms Cardiovascular: Reports: No Symptoms Gastrointestinal: Reports: Diarrhea Genitourinary: Reports: No Symptoms Musculoskeletal: Reports: Other (Intermittent diffuse myalgiaschronic). Denies: No Symptoms Skin: Reports: No Symptoms Neurological: Reports: No Symptoms Psychiatric: Reports: No Symptoms - Patient Data Vitals - Most Recent: Last Vital Signs Temp 97.9 F 03/18/21 20:00 Pulse 72 03/18/21 22:45 Resp 16 03/18/21 22:45 BP 156/62 H 03/18/21 22:45 Pulse Ox 96 03/18/21 22:45 Weight - Most Recent: 138 lb 1.6 oz I&O - Last 24 Hours: Intake & Output 03/18/21 03/19/21 03/19/21 22:59 06:59 14:59 Intake Total 200 Output Total 1250 800 Balance -1250 -600 Lab Results Last 24 Hours: Laboratory Results - last 24 hr 03/18/21 03/18/21 03/18/21 Range/Units 08:05 12:08 16:05 POC Glucose 121 H 120 H 118 H (70-99) mg/dL 03/18/21 Range/Units 20:34 POC Glucose 147 H (70-99) mg/dL Med Orders - Current: Current Medications Acetaminophen (Acetaminophen 325 Mg Tab) 650 mg PO Q4H PRN PRN Reason: Pain (Mild 1-3)/fever Last Admin: 03/18/21 19:47 Dose: 650 mg Documented by: Hydrocodone Bitart/Acetaminophen (Acetaminophen/Hydrocodone 325-10 Mg Tab) 1 tab PO Q8HR PRN PRN Reason: Pain (severe 7-10) Last Admin: 03/19/21 00:20 Dose: 1 tab Documented by: Ascorbic Acid (Ascorbic Acid 500 Mg Tab) 500 mg PO DAILY@0800 [facility] Last Admin: 03/18/21 08:42 Dose: 500 mg Documented by: Dextrose/Water (50% Dextrose In Water 50 Ml Syringe) 50 ml IVPUSH Q15M PRN PRN Reason: Hypoglycemia Ferrous Sulfate (Ferrous Sulfate 325 Mg Tab) 325 mg PO BIDMEALS [facility] Last Admin: 03/18/21 17:01 Dose: 325 mg Documented by: Glucagon (Glucagon,Human Recombinant 1 Mg Vial) 1 mg IM Q15M PRN PRN Reason: Hypoglycemia Hydralazine HCl (Hydralazine 25 Mg Tab) 100 mg PO Q8H [facility] Sodium Chloride (Normal Saline) 1,000 mls @ 75 mls/hr IV ASDIRECTED [facility] Last Admin: 03/18/21 23:50 Dose: 75 mls/hr Documented by: Insulin Human Lispro (Insulin Lispro 100 Units/Ml 3 Ml Vial) 0 unit SUBCUT WITHMEALSANDBED [facility]; Protocol Last Admin: 03/18/21 20:41 Dose: Not Given Documented by: Latanoprost (Latanoprost 0.005% Ophth Soln 2.5 Ml Bottle) 0 ml EYERT BEDTIME [facility] Last Admin: 03/18/21 20:50 Dose: 1 drop Documented by: Levothyroxine Sodium (Levothyroxine 150 Mcg Tab) 150 mcg PO ACBREAKFAST [facility] Last Admin: 03/19/21 05:42 Dose: 150 mcg Documented by: Levothyroxine Sodium (Levothyroxine 25 Mcg Tab) 25 mcg PO ACBREAKFAST [facility] Last Admin: 03/19/21 05:42 Dose: 25 mcg Documented by: Metformin HCl (Metformin 500 Mg Tab) 250 mg PO BIDMEALS [facility] Last Admin: 03/18/21 17:00 Dose: 250 mg Documented by: Morphine Sulfate (Morphine 15 Mg Tab.Er) 45 mg PO BID [facility] Last Admin: 03/18/21 20:38 Dose: 45 mg Documented by: Morphine Sulfate (Morphine 2 Mg/Ml Syringe) 2 mg IVPUSH Q6H PRN PRN Reason: Pain (severe 7-10) Last Admin: 03/19/21 06:26 Dose: 2 mg Documented by: Ondansetron HCl (Ondansetron 4 Mg/2 Ml Sdv) 4 mg IVPUSH Q4H PRN PRN Reason: Nausea/Vomiting Saccharomyces Boulardii (Saccharomyces Boulardii (Probiotic) 250 Mg Cap) 500 mg PO DAILY [facility] Last Admin: 03/18/21 08:40 Dose: 500 mg Documented by: Sertraline HCl (Sertraline 50 Mg Tab) 200 mg PO WITHDINNER [facility] Last Admin: 03/18/21 17:02 Dose: 200 mg Documented by: Sodium Chloride (Sodium Chloride 0.9% 10 Ml Syringe) 10 ml FLUSH ASDIRECTED PRN PRN Reason: Keep Vein Open Vancomycin HCl (Vancomycin 125 Mg Cap) 250 mg PO QID [facility] Last Admin: 03/18/21 20:38 Dose: 250 mg Documented by: Discontinued Medications Aspirin (Aspirin 81 Mg Tab.Ec) 81 mg PO DAILY [facility] Hydralazine HCl (Hydralazine 25 Mg Tab) 50 mg PO Q8H [facility] Last Admin: 03/18/21 22:38 Dose: 50 mg Documented by: Magnesium Sulfate 2 gm/ Premix 50 mls @ 25 mls/hr IV ONETIME ONE Stop: 03/16/21 10:14 Last Admin: 03/16/21 08:40 Dose: 25 mls/hr Documented by: Magnesium Sulfate 2 gm/ Premix 50 mls @ 25 mls/hr IV ONETIME ONE Stop: 03/16/21 16:59 Magnesium Sulfate 2 gm/ Premix 50 mls @ 25 mls/hr IV ONETIME ONE Stop: 03/17/21 09:36 Last Admin: 03/17/21 08:49 Dose: 25 mls/hr Documented by: Magnesium Sulfate 2 gm/ Premix 50 mls @ 25 mls/hr IV ONETIME ONE Stop: 03/18/21 09:21 Last Infusion: 03/18/21 10:30 Dose: Infused Documented by: Morphine Sulfate (Morphine 15 Mg Tab.Er) 15 mg PO ONETIME ONE Stop: 03/16/21 09:59 Last Admin: 03/16/21 11:09 Dose: Not Given Documented by: Morphine Sulfate (Morphine 15 Mg Tab.Er) 45 mg PO ONETIME ONE Stop: 03/16/21 09:59 Last Admin: 03/16/21 11:09 Dose: 45 mg Documented by: Morphine Sulfate (Morphine 2 Mg/Ml Syringe) 2 mg IVPUSH ONETIME ONE Stop: 03/18/21 20:46 Last Admin: 03/18/21 20:48 Dose: 2 mg Documented by: Non-Formulary Medication (Lansoprazole [Prevacid]) 30 mg PO DAILY [facility] Last Admin: 03/17/21 13:00 Dose: Not Given Documented by: - Exam General: Alert, Oriented HEENT: Pupils Equal, Pupils Reactive, EOMI, Mucous Membr. Moist/[place] Neck: Supple Lungs: Clear to Auscultation, Normal Respiratory Effort Cardiovascular: Regular Rate, Regular Rhythm GI/Abdominal Exam: Normal Bowel Sounds, Soft, Non-Tender, No Organomegaly, No Distention, No Abnormal Bruit, No Mass, Pelvis Stable Back Exam: Normal Inspection, Full Range of Motion Extremities: Normal Inspection, Normal Range of Motion, Non-Tender, No Pedal Edema, Normal Capillary Refill Peripheral Pulses: 2+: Carotid (L), Carotid (R), Brachial (L), Brachial (R), Radial (L), Radial (R), Femoral (L), Femoral (R), Popliteal (L), Popliteal (R), Posterior Tibial (L), Posterior Tibial (R), Dorsalis Pedis (L), Dorsalis Pedis (R) Skin: Warm, Dry, Intact Wound/Incisions: Healing Well Neurological: No New Focal Deficit Psy/Mental Status: Alert, Normal Affect, Normal Mood - Patient Data Lab Results Last 24 hrs: Laboratory Results - last 24 hr 03/18/21 03/18/21 03/18/21 Range/Units 08:05 12:08 16:05 POC Glucose 121 H 120 H 118 H (70-99) mg/dL 03/18/21 Range/Units 20:34 POC Glucose 147 H (70-99) mg/dL Result Diagrams: 03/18/21 06:21 03/16/21 07:25 Sepsis Event Note - Evaluation Sepsis Screening Result: No Definite Risk - Focused Exam Vital Signs: Vital Signs Temp Pulse Resp BP BP Pulse Ox 03/18/21 22:45 72 16 156/62 H 96 03/18/21 22:38 156/62 H 03/18/21 20:00 97.9 F 86 16 154/58 H 98 - Problem List Review Problem List Initiated/Reviewed/Updated: Yes - My Orders Last 24 Hours: My Active Orders 03/19/21 06:20 Morphine 2 mg IVPUSH Q6H PRN 03/19/21 06:25 CORONAVIRUS COVID-19 ARI [MOLEC] Routine 03/19/21 06:44 MAGNESIUM [CHEM] Routine 03/19/21 07:15 hydrALAZINE [Apresoline] 100 mg PO Q8H - Plan Plan:: Surgical History: Appendectomy, bilateral cataract surgery, right hip surgery Family History: Cancer, stroke, diabetes, coronary artery disease Social History: Tobacco: Former smoker Alcohol: Denies. Patient has remote history of alcohol use Caffeine: Coffee, tea Drugs: Never Allergies: Per medical records: Sulfa, adhesive tape, Nexium, lactose, Demerol, niacin, nitrofurantoin Code Status: DNR, DNI Assessment / Plan: C. difficile colitis. Vancomycin 250 mg p.o. 4 times daily plus IV normal saline 75 mils per hour Hypomagnesemia. Will monitor magnesium levels intermittently and supplement as necessary Hypothyroidism. Synthroid 175 mcg p.o. daily Osteoarthritis Depression. Zoloft 200 mg p.o. nightly Anxiety Diverticulosis Osteopenia Glaucoma. Xalatan 0.005%: 1 drop in the right eye nightly Chronic pain. Morphine sulfate 45 mg p.o. twice daily Pancytopenia with features of iron deficiency anemia. Will monitor hemoglobin level, leukocyte count, platelet count intermittently with CBC. Ferrous sulfate 305 mg p.o. twice daily plus vitamin C 500 mg p.o. daily Coronary artery disease Diabetes. Will check fingerstick glucose before every meal and at bedtime and provide some sign scale plus Metformin 250 mg p.o. twice daily GERD. Prevacid 30 mg p.o. daily Hypertension. Hydralazine 100 mg p.o. 3 times daily Obesity. Patient becomes regarding left eye modification History of CVA Rheumatoid arthritis Neuropathy History of cholelithiasis Degenerative disc disease Macular degeneration Bilateral lower extremity ulcer. We will continue wound care per home regimen DVT prophylaxis. Bilateral SCD Disposition: Patient appears medically stable for discharge on this day of March 19, 2021. I will discuss with case management/social work regarding jail placement END OF DOCTOR EMAMIS HISTORY AND PHYSICAL / CONSULTATION NOTE
[2021-03-19] MEDS ORDERED: hydrALAZINE 25 MG Tab PO SCH (07:30)
[2021-03-19 07:40] VITALS: BP 156/71; PULSE 91
[2021-03-19] MEDS: metFORMIN 500 MG Tab PO SCH (08:17)
[2021-03-19] MEDS: Saccharomyces Boulardii (Probiotic) 250 MG Cap PO SCH (08:18)
[2021-03-19] MEDS: Ascorbic Acid 500 MG Tab PO SCH (08:19)
[2021-03-19] MEDS: Ferrous Sulfate 325 MG Tab PO SCH (08:19)
[2021-03-19] MEDS: Vancomycin 125 MG Cap PO SCH (08:19)
[2021-03-19] MEDS: Insulin Lispro 100 Units/ML 3 ML Vial SUBCUT SCH (08:24)
[2021-03-19] MEDS ORDERED: Magnesium Sulfate/Water 2 GM in Premix Bag 1 BAG IV ONE (08:28)
--- NOTE | 2021-03-19 08:50 | PCM.DCSUM1 ---
Discharge Summary - Hospital Course Free Text/Narrative:: START OF DOCTOR EMAMIS DISCHARGE SUMMARY Date of Admission: March 16, 2021 Date of Discharge: 8:47 AM on March 19, 2021 Primary Diagnosis: C. difficile colitis Secondary Diagnosis: Hypomagnesemia, status post treatment Hypothyroidism Osteoarthritis Depression Anxiety Diverticulosis Osteopenia Glaucoma Chronic pain Pancytopenia with features of iron deficiency anemia Coronary artery disease Diabetes GERD Hypertension Obesity History of CVA Rheumatoid arthritis Neuropathy History of cholelithiasis Degenerative disc disease Macular degeneration Bilateral lower extremity ulcer Consultations: None Condition on Discharge: Fair Disposition: The patient will be vies follow-up with her primary care physician or with a provider 3 to 5 days post discharge for posthospitalization evaluation The patient is advised follow-up with hematology/oncology 2 to 4 weeks post discharge for diagnosis of pancytopenia The patient is advised to follow up with the wound care clinic or with the doctor who is managing her chronic bilateral lower extremity ulcers as directed Discharge Medications: Vancomycin 250 mg p.o. 4 times daily. Quantity sufficient for 10 days. 0 refills Questran 4 g p.o. twice daily. Quantity sufficient for 10 days. 0 refills Metformin 250 mg p.o. twice daily Morphine sulfate ER 45 mg p.o. twice daily Zoloft 200 mg p.o. nightly Xalatan 0.005%: 1 drop in the right eye nightly Synthroid 175 mcg p.o. daily Nitroglycerin 0.4 mg sublingually every 5 minutes as needed chest pain. If there is no resolution of chest pain after third dose 911 is to be called Magnesium oxide 400 mg p.o. daily Folic acid 1 mg p.o. daily Vitamin D 5000 IU p.o. daily Multivitamin 1 tab p.o. daily Vitamin C 500 mg p.o. daily Ferrous sulfate 325 mg p.o. twice daily Hydralazine 100 mg p.o. every 8 hours [place]ier 10/325 m tab p.o. every 8 hours as needed pain Acidophilus 1 tab p.o. daily END OF DOCTOR EMAMIS DISCHARGE SUMMARY - Discharge Data Discharge Date: 03/19/21 Discharge Disposition: DC/Tfer to [facility] 03 Condition: Fair - Referral to Home Health Primary Care Physician: Yvette Stewart NP - Patient Summary/Data Consults: Consultations 03/16/21 13:13 Consult to Case Management/Outsole Skiver [CONS] Routine OT Evaluation and Treatment [CONS] Routine PT Evaluation and Treatment [CONS] Routine - Patient Instructions Diet: Heart Healthy Diet, Low Sodium, Diabetic Diet Activity: As Tolerated - Discharge Plan Prescriptions/Med Rec: hydrALAZINE [Apresoline] 100 mg PO Q8H 30 Days #360 tablet Ferrous Sulfate 325 mg PO BIDMEALS 30 Days #60 tablet Cholestyramine (With Sugar) [Questran Powder] 4 gm PO BID 10 Days #80 gm Vancomycin [Vancocin 125 MG Capsule] 250 mg PO QID 10 Days #80 cap Ascorbic Acid [Vitamin C] 500 mg PO DAILY@0800 30 Days #30 tablet Home Medications: Home Meds Morphine Sulfate [Morphine Sulfate ER] 45 mg PO BID 12/17/16 [History] Jovany/D3/Mag11/Zinc/Installation Tech/Gene/Bor [Caltrate 600+D Plus Tablet] 1 tab PO DAILY 06/27/17 [History] Latanoprost [Xalatan 0.005% Ophth Soln] 2.5 ml EYERT BEDTIME 12/19/17 [History] Nitroglycerin 0.4 mg SL .Q5MIN X3 PRN 12/19/17 [History] B-Complex with Vitamin C [Super B Complex-Vitamin C] 1 tab PO DAILY 03/30/20 [History] Folic Acid 1 mg PO DAILY 03/30/20 [History] Hydrocodone/Acetaminophen [HYDROcodone-Acetaminophen 10-325 MG] 1 tab PO Q8HR PRN 03/30/20 [History] Cholecalciferol (Vitamin D3) [Vitamin D3] 5,000 unit PO DAILY 03/16/21 [History] L Acidophil/B Lactis/B Longum [Florajen Digest 15 B Cell Cap] 1 cap PO DAILY 03/16/21 [History] Levothyroxine 175 mcg PO ACBREAKFAST 03/16/21 [History] Magnesium Oxide [Magnesium] 400 mg PO DAILY 03/16/21 [History] Sertraline [Zoloft] 200 mg PO WITHDINNER 03/16/21 [History] metFORMIN [Glucophage] 250 mg PO BIDMEALS 03/16/21 [History] Ascorbic Acid [Vitamin C] 500 mg PO DAILY@0800 30 Days #30 tablet 03/19/21 [Rx] Cholestyramine (With Sugar) [Questran Powder] 4 gm PO BID 10 Days #80 gm 07/22/21 [Rx] Ferrous Sulfate 325 mg PO BIDMEALS 30 Days #60 tablet 03/19/21 [Rx] Vancomycin [Vancocin 125 MG Capsule] 250 mg PO QID 10 Days #80 cap 03/19/21 [Rx] hydrALAZINE [Apresoline] 100 mg PO Q8H 30 Days #360 tablet 03/19/21 [Rx] Referrals: Yvette Stewart, [employer] [Primary Care Provider] - - Discharge Summary/Plan Comment DC Time >30 min.: Yes - Review of Systems General: Reports: No Symptoms HEENT: Reports: No Symptoms Pulmonary: Reports: No Symptoms Cardiovascular: Reports: No Symptoms Gastrointestinal: Reports: Diarrhea Genitourinary: Reports: No Symptoms Musculoskeletal: Reports: Other. Denies: No Symptoms (Patient has chronic diffuse myalgia/arthralgia) Skin: Reports: No Symptoms Neurological: Reports: No Symptoms Psychiatric: Reports: No Symptoms - Patient Data Vitals - Most Recent: Last Vital Signs Temp 98.1 F 03/19/21 07:39 Pulse 91 03/19/21 07:39 Resp 20 03/19/21 07:39 BP 156/71 H 03/19/21 08:18 Pulse Ox 100 03/19/21 07:39 Weight - Most Recent: 138 lb 1.6 oz I&O - Last 24 hours: Intake & Output 03/18/21 03/19/21 03/19/21 22:59 06:59 14:59 Intake Total 200 Output Total 1250 800 Balance -1250 -600 Lab Results - Last 24 hrs: Laboratory Results - last 24 hr 03/18/21 03/18/21 03/18/21 Range/Units 12:08 16:05 20:34 POC Glucose 120 H 118 H 147 H (70-99) mg/dL Magnesium (1.8-2.4) mg/dL SARS-CoV-2 RNA (ARI) (NEGATIVE) 03/19/21 03/19/21 03/19/21 Range/Units 06:25 06:44 07:59 POC Glucose 142 H (70-99) mg/dL Magnesium 1.6 L (1.8-2.4) mg/dL SARS-CoV-2 RNA (ARI) Negative (NEGATIVE) Med Orders - Current: Current Medications Acetaminophen (Acetaminophen 325 Mg Tab) 650 mg PO Q4H PRN PRN Reason: Pain (Mild 1-3)/fever Last Admin: 03/18/21 19:47 Dose: 650 mg Documented by: Hydrocodone Bitart/Acetaminophen (Acetaminophen/Hydrocodone 325-10 Mg Tab) 1 tab PO Q8HR PRN PRN Reason: Pain (severe 7-10) Last Admin: 03/19/21 00:20 Dose: 1 tab Documented by: Ascorbic Acid (Ascorbic Acid 500 Mg Tab) 500 mg PO DAILY@0800 [facility] Last Admin: 03/19/21 08:19 Dose: 500 mg Documented by: Dextrose/Water (50% Dextrose In Water 50 Ml Syringe) 50 ml IVPUSH Q15M PRN PRN Reason: Hypoglycemia Ferrous Sulfate (Ferrous Sulfate 325 Mg Tab) 325 mg PO BIDMEALS [facility] Last Admin: 03/19/21 08:19 Dose: 325 mg Documented by: Glucagon (Glucagon,Human Recombinant 1 Mg Vial) 1 mg IM Q15M PRN PRN Reason: Hypoglycemia Hydralazine HCl (Hydralazine 25 Mg Tab) 100 mg PO Q8H [facility] Last Admin: 03/19/21 08:18 Dose: 100 mg Documented by: Sodium Chloride (Normal Saline) 1,000 mls @ 75 mls/hr IV ASDIRECTED [facility] Last Admin: 03/18/21 23:50 Dose: 75 mls/hr Documented by: Magnesium Sulfate 2 gm/ Premix 50 mls @ 25 mls/hr IV ONETIME ONE Stop: 03/19/21 10:27 Insulin Human Lispro (Insulin Lispro 100 Units/Ml 3 Ml Vial) 0 unit SUBCUT WITHMEALSANDBED [facility]; Protocol Last Admin: 03/19/21 08:24 Dose: Not Given Documented by: Latanoprost (Latanoprost 0.005% Ophth Soln 2.5 Ml Bottle) 0 ml EYERT BEDTIME [facility] Last Admin: 03/18/21 20:50 Dose: 1 drop Documented by: Levothyroxine Sodium (Levothyroxine 150 Mcg Tab) 150 mcg PO ACBREAKFAST [facility] Last Admin: 03/19/21 05:42 Dose: 150 mcg Documented by: Levothyroxine Sodium (Levothyroxine 25 Mcg Tab) 25 mcg PO ACBREAKFAST [facility] Last Admin: 03/19/21 05:42 Dose: 25 mcg Documented by: Metformin HCl (Metformin 500 Mg Tab) 250 mg PO BIDMEALS [facility] Last Admin: 03/19/21 08:17 Dose: 250 mg Documented by: Morphine Sulfate (Morphine 15 Mg Tab.Er) 45 mg PO BID [facility] Last Admin: 03/18/21 20:38 Dose: 45 mg Documented by: Morphine Sulfate (Morphine 2 Mg/Ml Syringe) 2 mg IVPUSH Q4H PRN PRN Reason: Pain (severe 7-10) Ondansetron HCl (Ondansetron 4 Mg/2 Ml Sdv) 4 mg IVPUSH Q4H PRN PRN Reason: Nausea/Vomiting Saccharomyces Boulardii (Saccharomyces Boulardii (Probiotic) 250 Mg Cap) 500 mg PO DAILY [facility] Last Admin: 03/19/21 08:18 Dose: 500 mg Documented by: Sertraline HCl (Sertraline 50 Mg Tab) 200 mg PO WITHDINNER [facility] Last Admin: 03/18/21 17:02 Dose: 200 mg Documented by: Sodium Chloride (Sodium Chloride 0.9% 10 Ml Syringe) 10 ml FLUSH ASDIRECTED PRN PRN Reason: Keep Vein Open Vancomycin HCl (Vancomycin 125 Mg Cap) 250 mg PO QID [facility] Last Admin: 03/19/21 08:19 Dose: 250 mg Documented by: Discontinued Medications Aspirin (Aspirin 81 Mg Tab.Ec) 81 mg PO DAILY [facility] Hydralazine HCl (Hydralazine 25 Mg Tab) 50 mg PO Q8H [facility] Last Admin: 03/18/21 22:38 Dose: 50 mg Documented by: Magnesium Sulfate 2 gm/ Premix 50 mls @ 25 mls/hr IV ONETIME ONE Stop: 03/16/21 10:14 Last Admin: 03/16/21 08:40 Dose: 25 mls/hr Documented by: Magnesium Sulfate 2 gm/ Premix 50 mls @ 25 mls/hr IV ONETIME ONE Stop: 03/16/21 16:59 Magnesium Sulfate 2 gm/ Premix 50 mls @ 25 mls/hr IV ONETIME ONE Stop: 03/17/21 09:36 Last Admin: 03/17/21 08:49 Dose: 25 mls/hr Documented by: Magnesium Sulfate 2 gm/ Premix 50 mls @ 25 mls/hr IV ONETIME ONE Stop: 03/18/21 09:21 Last Infusion: 03/18/21 10:30 Dose: Infused Documented by: Morphine Sulfate (Morphine 15 Mg Tab.Er) 15 mg PO ONETIME ONE Stop: 03/16/21 09:59 Last Admin: 03/16/21 11:09 Dose: Not Given Documented by: Morphine Sulfate (Morphine 15 Mg Tab.Er) 45 mg PO ONETIME ONE Stop: 03/16/21 09:59 Last Admin: 03/16/21 11:09 Dose: 45 mg Documented by: Morphine Sulfate (Morphine 2 Mg/Ml Syringe) 2 mg IVPUSH ONETIME ONE Stop: 03/18/21 20:46 Last Admin: 03/18/21 20:48 Dose: 2 mg Documented by: Morphine Sulfate (Morphine 2 Mg/Ml Syringe) 2 mg IVPUSH Q6H PRN PRN Reason: Pain (severe 7-10) Last Admin: 03/19/21 06:26 Dose: 2 mg Documented by: Non-Formulary Medication (Lansoprazole [Prevacid]) 30 mg PO DAILY [facility] Last Admin: 03/17/21 13:00 Dose: Not Given Documented by: - Exam General: Reports: Alert, Oriented HEENT: Reports: Pupils Equal, Pupils Reactive, EOMI, Mucous Membr. Moist/[place] Neck: Reports: Supple Lungs: Reports: Clear to Auscultation, Normal Respiratory Effort Cardiovascular: Reports: Regular Rate, Regular Rhythm GI/Abdominal Exam: Normal Bowel Sounds, Soft, Non-Tender, No Organomegaly, No Distention, No Abnormal Bruit, No Mass, Pelvis Stable Back Exam: Reports: Normal Inspection, Full Range of Motion Extremities: Normal Inspection, Normal Range of Motion, Non-Tender, No Pedal Edema, Normal Capillary Refill Skin: Reports: Warm, Dry, Intact Wound/Incisions: Reports: Healing Well Neurological: Reports: No New Focal Deficit Psy/Mental Status: Reports: Alert, Normal Affect, Normal Mood
[2021-03-19] MEDS: Morphine 15 MG Tab.ER PO SCH (09:09)
== END 2021-03-19 10:14 | DRG 372 ==
LOC: DL.ED 07:02 → EEVIPCON 10:31 → DL.MS 10:31
PROVIDERS: ADMIT Internal Medicine; ATTEND Internal Medicine
DX: R19.7 Diarrhea, unspecified (principal); B96.7 Clostridium perfringens [C. perfringens] as the cause of diseases classified elsewhere; A04.72 Enterocolitis due to Clostridium difficile, not specified as recurrent; R53.1 Weakness; Z74.09 Other reduced mobility; D61.818 Other pancytopenia; L97.929 Non-pressure chronic ulcer of unspecified part of left lower leg with unspecified severity; L97.919 Non-pressure chronic ulcer of unspecified part of right lower leg with unspecified severity; I10 Essential (primary) hypertension; E83.42 Hypomagnesemia; M19.90 Unspecified osteoarthritis, unspecified site; E11.40 Type 2 diabetes mellitus with diabetic neuropathy, unspecified; E03.9 Hypothyroidism, unspecified; F32.9 Major depressive disorder, single episode, unspecified; Z91.011 Allergy to milk products; F41.9 Anxiety disorder, unspecified; Z66 Do not resuscitate; Z91.048 Other nonmedicinal substance allergy status; Z20.822 Contact with and (suspected) exposure to COVID-19; K57.90 Diverticulosis of intestine, part unspecified, without perforation or abscess without bleeding; H40.9 Unspecified glaucoma; G89.29 Other chronic pain; I25.10 Atherosclerotic heart disease of native coronary artery without angina pectoris; K21.9 Gastro-esophageal reflux disease without esophagitis; E11.42 Type 2 diabetes mellitus with diabetic polyneuropathy; H35.30 Unspecified macular degeneration; E66.9 Obesity, unspecified; M85.80 Other specified disorders of bone density and structure, unspecified site; M06.9 Rheumatoid arthritis, unspecified; H91.90 Unspecified hearing loss, unspecified ear; H54.7 Unspecified visual loss; Z96.649 Presence of unspecified artificial hip joint; Z86.73 Personal history of transient ischemic attack (TIA), and cerebral infarction without residual deficits; Z91.09 Other allergy status, other than to drugs and biological substances; Z88.8 Allergy status to other drugs, medicaments and biological substances; Z88.2 Allergy status to sulfonamides; Z79.890 Hormone replacement therapy; Z79.82 Long term (current) use of aspirin; Z79.84 Long term (current) use of oral hypoglycemic drugs; Z79.899 Other long term (current) drug therapy; Z87.891 Personal history of nicotine dependence; Z98.49 Cataract extraction status, unspecified eye; Z28.82 Immunization not carried out because of caregiver refusal; Z68.24 Body mass index [BMI] 24.0-24.9, adult
CPT/HCPCS: 36415; 80053; 81001; 82272; 82728; 83540; 83550; 83605; 83735; 85025; 96365; 96366; 99284; J3475; 82947; 97162-GP; 97166-GO; A9270-GY; J2270; J2405; J7030; U0002

== ENCOUNTER 2021-09-24 11:19 | Inpatient (IN) | payer MEDICARE, OTHER ==
[2021-09-24 14:11] LABS: PTT,PARTIAL THROMBOPLSTIN TIME 23.4 SEC (22.0-34.0)
[2021-09-24 14:15] LABS: ACETAMINOPHEN 0 ug/mL (10-30 (Therapeutic)); ANION GAP 13.1 mEq/L (7-13); CHLORIDE,CL 102 mmol/L (98-107); SODIUM,NA 139 mmol/L (136-145)
[2021-09-24 14:24] LABS: METHAMPHETAMINES,URINE NEGATIVE (NEGATIVE)
[2021-09-24 14:25] LABS: AMPHETAMINES,URINE NEGATIVE (NEGATIVE); BARBITURATES,URINE NEGATIVE (NEGATIVE); BENZODIAZEPINE,URINE NEGATIVE (NEGATIVE); MDMA (ECSTASY), URINE NEGATIVE (NEGATIVE); METHADONE,URINE NEGATIVE (NEGATIVE); OPIATES,URINE POSITIVE (NEGATIVE); OXYCODONE,URINE POSITIVE (NEGATIVE); PHENCYCLIDINE,URINE NEGATIVE (NEGATIVE); TCA,URINE NEGATIVE (NEGATIVE)
[2021-09-24] MEDS ORDERED: Docusate Sodium 100 MG Cap PO PRN (18:51)
[2021-09-24] MEDS ORDERED: Ondansetron 4 MG/2 ML SDV IVPUSH PRN (18:51)
[2021-09-24] MEDS ORDERED: Bisacodyl 5 MG Tab PO PRN (18:51)
[2021-09-24] MEDS ORDERED: Polyethylene Glycol 3350 Powder 17 GM Packet PO PRN (18:51)
[2021-09-24] MEDS ORDERED: Glucagon,Human Recombinant 1 MG Vial IM PRN (19:09)
[2021-09-24] MEDS ORDERED: 50% Dextrose in Water 50 ML Syringe IVPUSH PRN (19:09)
[2021-09-24] MEDS: hydrALAZINE 25 MG Tab PO SCH (19:16)
[2021-09-24] MEDS: Morphine 30 MG Tab.ER PO SCH (19:16)
[2021-09-24] MEDS ORDERED: Ondansetron 4 MG Tab.DIS PO PRN (20:31)
[2021-09-25] MEDS: hydrALAZINE 25 MG Tab PO SCH ×3 (02:32→21:46)
[2021-09-25] MEDS: Morphine 30 MG Tab.ER PO SCH ×3 (02:32→21:45)
[2021-09-25] MEDS: oxyCODONE 5 MG Tab PO PRN ×3 (05:00→23:04)
[2021-09-25] MEDS: Levothyroxine 100 MCG Tab PO SCH ×2 (05:00→05:02)
[2021-09-25] MEDS: Insulin Lispro 100 Units/ML 3 ML Vial SUBCUT PRN ×4 (07:15→21:41)
[2021-09-25] MEDS: metFORMIN 500 MG Tab PO SCH ×2 (08:21→17:18)
[2021-09-25] MEDS: DULoxetine 30 MG Cap PO SCH (08:22)
[2021-09-25] MEDS: Saccharomyces Boulardii (Probiotic) 250 MG Cap PO SCH (08:40)
[2021-09-25] MEDS ORDERED: Enoxaparin 30 MG/0.3 ML Syringe SUBCUT SCH (09:00)
[2021-09-25] MEDS ORDERED: Saccharomyces Boulardii (Probiotic) 250 MG Cap PO SCH (09:00)
[2021-09-25] MEDS: Enoxaparin 40 MG/0.4 ML Syringe SUBCUT SCH (09:04)
[2021-09-25] MEDS: CHOLESTYRAMINE PO SCH ×2 (12:30→21:40)
[2021-09-25] MEDS: [UNRECOGNIZED DRUG - OTHER] PO SCH ×2 (12:30→21:40)
[2021-09-25] MEDS: Acetaminophen 325 MG Tab PO PRN ×2 (18:12→21:45)
[2021-09-26] MEDS: Morphine 30 MG Tab.ER PO SCH ×3 (05:07→22:19)
[2021-09-26] MEDS: oxyCODONE 5 MG Tab PO PRN ×2 (05:08→23:56)
[2021-09-26] MEDS: Levothyroxine 100 MCG Tab PO SCH (05:09)
[2021-09-26] MEDS: Levothyroxine 75 MCG Tab PO SCH (05:09)
[2021-09-26] MEDS: hydrALAZINE 25 MG Tab PO SCH ×3 (05:09→22:20)
[2021-09-26] MEDS ORDERED: 50% Dextrose in Water 50 ML Syringe IVPUSH PRN (09:09)
[2021-09-26] MEDS ORDERED: Glucagon,Human Recombinant 1 MG Vial IM PRN (09:09)
[2021-09-26] MEDS ORDERED: Lidocaine 5% 700 MG Patch TOP SCH (09:15)
[2021-09-26] MEDS: DULoxetine 30 MG Cap PO SCH (09:37)
[2021-09-26] MEDS: metFORMIN 500 MG Tab PO SCH ×2 (09:38→17:11)
[2021-09-26] MEDS: Saccharomyces Boulardii (Probiotic) 250 MG Cap PO SCH (09:38)
[2021-09-26] MEDS: Acetaminophen 325 MG Tab PO PRN ×3 (09:39→22:31)
[2021-09-26] MEDS: Enoxaparin 40 MG/0.4 ML Syringe SUBCUT SCH (09:40)
[2021-09-26] MEDS: [UNRECOGNIZED DRUG - OTHER] PO SCH ×2 (09:47→22:23)
[2021-09-26] MEDS: CHOLESTYRAMINE PO SCH ×2 (09:47→22:23)
[2021-09-26] MEDS: Insulin Lispro 100 Units/ML 3 ML Vial SUBCUT SCH ×3 (12:50→22:32)
[2021-09-27] MEDS: Acetaminophen 325 MG Tab PO PRN ×2 (06:09→21:52)
[2021-09-27] MEDS: hydrALAZINE 25 MG Tab PO SCH ×3 (06:10→21:51)
[2021-09-27] MEDS: Morphine 30 MG Tab.ER PO SCH ×3 (06:11→21:51)
[2021-09-27] MEDS: Levothyroxine 75 MCG Tab PO SCH (06:11)
[2021-09-27] MEDS: Levothyroxine 100 MCG Tab PO SCH (06:12)
[2021-09-27] MEDS: Insulin Lispro 100 Units/ML 3 ML Vial SUBCUT SCH ×4 (08:10→21:54)
[2021-09-27] MEDS: DULoxetine 30 MG Cap PO SCH (08:28)
[2021-09-27] MEDS: metFORMIN 500 MG Tab PO SCH ×2 (08:28→17:59)
[2021-09-27] MEDS: Saccharomyces Boulardii (Probiotic) 250 MG Cap PO SCH (08:28)
[2021-09-27] MEDS: Enoxaparin 40 MG/0.4 ML Syringe SUBCUT SCH (08:29)
[2021-09-27] MEDS: [UNRECOGNIZED DRUG - OTHER] PO SCH ×2 (08:36→21:53)
[2021-09-27] MEDS: CHOLESTYRAMINE PO SCH ×2 (08:36→21:53)
[2021-09-27] MEDS ORDERED: Calcium Carbonate 500 MG Tab.Chew PO PRN (09:08)
[2021-09-27] MEDS: oxyCODONE 5 MG Tab PO PRN (23:39)
[2021-09-28] MEDS: Acetaminophen 325 MG Tab PO PRN (06:01)
[2021-09-28] MEDS: Levothyroxine 75 MCG Tab PO SCH (06:02)
[2021-09-28] MEDS: Levothyroxine 100 MCG Tab PO SCH (06:02)
[2021-09-28] MEDS: hydrALAZINE 25 MG Tab PO SCH ×3 (06:02→22:25)
[2021-09-28] MEDS: Morphine 30 MG Tab.ER PO SCH ×3 (06:03→22:25)
[2021-09-28] MEDS: Insulin Lispro 100 Units/ML 3 ML Vial SUBCUT SCH ×4 (08:00→22:27)
[2021-09-28] MEDS: [UNRECOGNIZED DRUG - OTHER] PO SCH ×2 (08:18→22:28)
[2021-09-28] MEDS: Enoxaparin 40 MG/0.4 ML Syringe SUBCUT SCH (08:18)
[2021-09-28] MEDS: metFORMIN 500 MG Tab PO SCH ×2 (08:18→17:21)
[2021-09-28] MEDS: CHOLESTYRAMINE PO SCH ×2 (08:18→22:28)
[2021-09-28] MEDS: DULoxetine 30 MG Cap PO SCH (08:19)
[2021-09-28] MEDS: Saccharomyces Boulardii (Probiotic) 250 MG Cap PO SCH (08:20)
[2021-09-29] MEDS: oxyCODONE 5 MG Tab PO PRN ×2 (00:26→23:04)
[2021-09-29] MEDS ORDERED: Acetaminophen/oxyCODONE 325-5 MG Tab PO ONE (02:38)
[2021-09-29] MEDS: Levothyroxine 100 MCG Tab PO SCH (05:25)
[2021-09-29] MEDS: Levothyroxine 75 MCG Tab PO SCH (05:25)
[2021-09-29] MEDS: Morphine 30 MG Tab.ER PO SCH ×3 (05:25→21:43)
[2021-09-29] MEDS: hydrALAZINE 25 MG Tab PO SCH ×3 (05:38→21:33)
[2021-09-29] MEDS: metFORMIN 500 MG Tab PO SCH ×2 (09:17→17:36)
[2021-09-29] MEDS: DULoxetine 30 MG Cap PO SCH (09:17)
[2021-09-29] MEDS: Insulin Lispro 100 Units/ML 3 ML Vial SUBCUT SCH ×4 (09:18→21:32)
[2021-09-29] MEDS: Enoxaparin 40 MG/0.4 ML Syringe SUBCUT SCH (09:18)
[2021-09-29] MEDS: Saccharomyces Boulardii (Probiotic) 250 MG Cap PO SCH (09:18)
[2021-09-29] MEDS: [UNRECOGNIZED DRUG - OTHER] PO SCH ×2 (09:21→21:43)
[2021-09-29] MEDS: CHOLESTYRAMINE PO SCH ×2 (09:21→21:43)
[2021-09-30] MEDS: Morphine 30 MG Tab.ER PO SCH ×3 (05:39→22:29)
[2021-09-30] MEDS: Levothyroxine 100 MCG Tab PO SCH (05:39)
[2021-09-30] MEDS: Levothyroxine 75 MCG Tab PO SCH (05:39)
[2021-09-30] MEDS: hydrALAZINE 25 MG Tab PO SCH ×3 (06:33→22:29)
[2021-09-30] MEDS: DULoxetine 30 MG Cap PO SCH (08:53)
[2021-09-30] MEDS: Saccharomyces Boulardii (Probiotic) 250 MG Cap PO SCH (08:53)
[2021-09-30] MEDS: metFORMIN 500 MG Tab PO SCH ×2 (08:54→17:39)
[2021-09-30] MEDS: Enoxaparin 40 MG/0.4 ML Syringe SUBCUT SCH (08:55)
[2021-09-30] MEDS: Insulin Lispro 100 Units/ML 3 ML Vial SUBCUT SCH ×4 (08:57→22:30)
[2021-09-30] MEDS: [UNRECOGNIZED DRUG - OTHER] PO SCH ×2 (08:57→22:31)
[2021-09-30] MEDS: CHOLESTYRAMINE PO SCH ×2 (08:57→22:31)
[2021-09-30] MEDS: oxyCODONE 5 MG Tab PO PRN (23:47)
[2021-10-01] MEDS: Levothyroxine 75 MCG Tab PO SCH (05:02)
[2021-10-01] MEDS: oxyCODONE 5 MG Tab PO PRN (05:03)
[2021-10-01] MEDS: hydrALAZINE 25 MG Tab PO SCH ×3 (05:03→21:43)
[2021-10-01] MEDS: Levothyroxine 100 MCG Tab PO SCH (05:03)
[2021-10-01] MEDS: Morphine 30 MG Tab.ER PO SCH ×3 (05:04→21:55)
[2021-10-01] MEDS: Insulin Lispro 100 Units/ML 3 ML Vial SUBCUT SCH ×4 (08:04→21:43)
[2021-10-01] MEDS: Saccharomyces Boulardii (Probiotic) 250 MG Cap PO SCH (08:20)
[2021-10-01] MEDS: [UNRECOGNIZED DRUG - OTHER] PO SCH ×2 (08:20→21:54)
[2021-10-01] MEDS: CHOLESTYRAMINE PO SCH ×2 (08:20→21:54)
[2021-10-01] MEDS: metFORMIN 500 MG Tab PO SCH ×2 (08:21→17:42)
[2021-10-01] MEDS: DULoxetine 30 MG Cap PO SCH (08:21)
[2021-10-01] MEDS: Acetaminophen 325 MG Tab PO PRN (08:22)
[2021-10-01] MEDS: Enoxaparin 40 MG/0.4 ML Syringe SUBCUT SCH (08:23)
[2021-10-02] MEDS: oxyCODONE 5 MG Tab PO PRN ×2 (02:21→09:35)
[2021-10-02] MEDS: Morphine 30 MG Tab.ER PO SCH (05:28)
[2021-10-02] MEDS: Levothyroxine 100 MCG Tab PO SCH (05:28)
[2021-10-02] MEDS: Levothyroxine 75 MCG Tab PO SCH (05:28)
[2021-10-02] MEDS: hydrALAZINE 25 MG Tab PO SCH (05:51)
[2021-10-02] MEDS: Insulin Lispro 100 Units/ML 3 ML Vial SUBCUT SCH ×2 (08:09→12:32)
[2021-10-02] MEDS: metFORMIN 500 MG Tab PO SCH (09:34)
[2021-10-02] MEDS: DULoxetine 30 MG Cap PO SCH (09:34)
[2021-10-02] MEDS: Saccharomyces Boulardii (Probiotic) 250 MG Cap PO SCH (09:34)
[2021-10-02] MEDS: [UNRECOGNIZED DRUG - OTHER] PO SCH (09:35)
[2021-10-02] MEDS: Enoxaparin 40 MG/0.4 ML Syringe SUBCUT SCH (09:35)
[2021-10-02] MEDS: CHOLESTYRAMINE PO SCH (09:35)
[2021-10-02 13:30] VITALS: BP 101/51; PULSE 85
== END 2021-10-02 13:32 | disposition swing bed (61) | DRG 880 ==
LOC: DL.ED 11:19 → DL.MS 17:11
PROVIDERS: ADMIT Internal Medicine; ATTEND Internal Medicine
DX: R45.851 Suicidal ideations (principal); U07.1 COVID-19; M25.551 Pain in right hip; M54.9 Dorsalgia, unspecified; G89.29 Other chronic pain; R53.1 Weakness; R26.2 Difficulty in walking, not elsewhere classified; E78.5 Hyperlipidemia, unspecified; Z66 Do not resuscitate; H91.90 Unspecified hearing loss, unspecified ear; H54.7 Unspecified visual loss; F41.9 Anxiety disorder, unspecified; H35.30 Unspecified macular degeneration; I25.10 Atherosclerotic heart disease of native coronary artery without angina pectoris; I10 Essential (primary) hypertension; Z86.73 Personal history of transient ischemic attack (TIA), and cerebral infarction without residual deficits; E11.42 Type 2 diabetes mellitus with diabetic polyneuropathy; M19.90 Unspecified osteoarthritis, unspecified site; R32 Unspecified urinary incontinence; Z96.649 Presence of unspecified artificial hip joint; M06.9 Rheumatoid arthritis, unspecified; R31.29 Other microscopic hematuria; D64.9 Anemia, unspecified; F32.A Depression, unspecified; Z91.09 Other allergy status, other than to drugs and biological substances; Z88.1 Allergy status to other antibiotic agents; E03.9 Hypothyroidism, unspecified; E11.40 Type 2 diabetes mellitus with diabetic neuropathy, unspecified; Z99.3 Dependence on wheelchair; Z91.040 Latex allergy status; Z91.011 Allergy to milk products; Z91.010 Allergy to peanuts; Z98.49 Cataract extraction status, unspecified eye; Z90.49 Acquired absence of other specified parts of digestive tract; Z88.2 Allergy status to sulfonamides; Z88.8 Allergy status to other drugs, medicaments and biological substances; Z91.048 Other nonmedicinal substance allergy status; Z79.84 Long term (current) use of oral hypoglycemic drugs; Z79.890 Hormone replacement therapy; Z79.899 Other long term (current) drug therapy; Z20.822 Contact with and (suspected) exposure to COVID-19; X83.8XXA Intentional self-harm by other specified means, initial encounter
CPT/HCPCS: 36415; 80053; 80143; 80179; 80305; 80307; 81001; 83605; 83735; 83880; 84484; 85025; 85610; 85730; 86140; 93005; 93010; 99284; 99285; U0002; 51701; 82947; 97110-GP; 97161-GP; 97166-GO; 97530-GO; 97530-GP; A9270-GY; J1650; J1815-GY

== ENCOUNTER 2021-10-02 12:27 | Inpatient (IN) | payer MEDICARE, OTHER ==
[2021-10-02] MEDS ORDERED: 50% Dextrose in Water 50 ML Syringe IVPUSH PRN (13:22)
[2021-10-02] MEDS ORDERED: Calcium Carbonate 500 MG Tab.Chew PO PRN (13:22)
[2021-10-02] MEDS ORDERED: Glucagon,Human Recombinant 1 MG Vial IM PRN ×2 (13:22)
[2021-10-02] MEDS ORDERED: Polyethylene Glycol 3350 Powder 17 GM Packet PO PRN (13:22)
[2021-10-02] MEDS: Morphine 30 MG Tab.ER PO SCH ×2 (15:14→21:53)
[2021-10-02] MEDS: hydrALAZINE 25 MG Tab PO SCH ×2 (15:15→21:52)
[2021-10-02] MEDS: metFORMIN 500 MG Tab PO SCH (17:46)
[2021-10-02] MEDS: Insulin Lispro 100 Units/ML 3 ML Vial SUBCUT SCH ×2 (18:36→22:25)
[2021-10-02] MEDS: oxyCODONE 5 MG Tab PO PRN (23:02)
[2021-10-02] MEDS: Docusate Sodium 100 MG Cap PO PRN (23:07)
[2021-10-02] MEDS: Bisacodyl 5 MG Tab PO PRN (23:07)
[2021-10-03] MEDS: hydrALAZINE 25 MG Tab PO SCH ×3 (05:25→21:45)
[2021-10-03] MEDS: Levothyroxine 100 MCG Tab PO SCH (05:26)
[2021-10-03] MEDS: Morphine 30 MG Tab.ER PO SCH ×3 (05:26→21:45)
[2021-10-03] MEDS: Levothyroxine 75 MCG Tab PO SCH (05:26)
[2021-10-03] MEDS: Acetaminophen 325 MG Tab PO PRN ×2 (08:12→21:43)
[2021-10-03] MEDS: DULoxetine 30 MG Cap PO SCH (09:23)
[2021-10-03] MEDS: metFORMIN 500 MG Tab PO SCH ×2 (09:23→18:18)
[2021-10-03] MEDS: Insulin Lispro 100 Units/ML 3 ML Vial SUBCUT SCH ×4 (09:24→21:42)
[2021-10-03] MEDS: Saccharomyces Boulardii (Probiotic) 250 MG Cap PO SCH (09:26)
[2021-10-03] MEDS: Enoxaparin 40 MG/0.4 ML Syringe SUBCUT SCH (09:26)
[2021-10-03] MEDS: Docusate Sodium 100 MG Cap PO PRN (18:22)
[2021-10-04] MEDS: oxyCODONE 5 MG Tab PO PRN ×2 (00:02→06:30)
[2021-10-04] MEDS: Ondansetron 4 MG Tab.DIS PO PRN (00:08)
[2021-10-04] MEDS: hydrALAZINE 25 MG Tab PO SCH ×3 (05:02→21:34)
[2021-10-04] MEDS: Levothyroxine 100 MCG Tab PO SCH (05:03)
[2021-10-04] MEDS: Morphine 30 MG Tab.ER PO SCH ×3 (05:04→21:37)
[2021-10-04] MEDS: Acetaminophen 325 MG Tab PO PRN ×2 (05:04→17:54)
[2021-10-04] MEDS: Levothyroxine 75 MCG Tab PO SCH (05:04)
[2021-10-04] MEDS: DULoxetine 30 MG Cap PO SCH (08:11)
[2021-10-04] MEDS: Enoxaparin 40 MG/0.4 ML Syringe SUBCUT SCH (08:12)
[2021-10-04] MEDS: Saccharomyces Boulardii (Probiotic) 250 MG Cap PO SCH (08:12)
[2021-10-04] MEDS: metFORMIN 500 MG Tab PO SCH ×2 (08:13→17:14)
[2021-10-04] MEDS: Insulin Lispro 100 Units/ML 3 ML Vial SUBCUT SCH ×4 (08:22→21:34)
[2021-10-04] MEDS ORDERED: Carboxymethylcellulose Sodium 1% Ophth Gel 0.4 ML UD EYEBOTH PRN (11:48)
[2021-10-04] MEDS: guaiFENesin 100 MG/5 ML Soln 5 ML UD Cup PO PRN (12:13)
[2021-10-04] MEDS: Acyclovir 200 MG Cap PO SCH ×3 (12:13→21:34)
[2021-10-05] MEDS: hydrALAZINE 25 MG Tab PO SCH ×3 (06:23→22:08)
[2021-10-05] MEDS: Morphine 30 MG Tab.ER PO SCH ×3 (06:24→22:08)
[2021-10-05] MEDS: Levothyroxine 75 MCG Tab PO SCH (06:24)
[2021-10-05] MEDS: Levothyroxine 100 MCG Tab PO SCH (06:24)
[2021-10-05 06:59] LABS: ANION GAP 10.4 mEq/L (7-13); CHLORIDE,CL 101 mmol/L (98-107); ESTIMATED GFR > 60; SODIUM,NA 138 mmol/L (136-145)
[2021-10-05] MEDS: Enoxaparin 40 MG/0.4 ML Syringe SUBCUT SCH (09:00)
[2021-10-05] MEDS: DULoxetine 30 MG Cap PO SCH (09:01)
[2021-10-05] MEDS: Saccharomyces Boulardii (Probiotic) 250 MG Cap PO SCH (09:01)
[2021-10-05] MEDS: metFORMIN 500 MG Tab PO SCH ×2 (09:01→18:53)
[2021-10-05] MEDS: Acyclovir 200 MG Cap PO SCH ×3 (09:01→22:08)
[2021-10-05] MEDS: Insulin Lispro 100 Units/ML 3 ML Vial SUBCUT SCH ×4 (09:02→22:07)
[2021-10-05] MEDS: Bisacodyl 5 MG Tab PO PRN (09:11)
[2021-10-05] MEDS: Docusate Sodium 100 MG Cap PO PRN (14:59)
[2021-10-06] MEDS: guaiFENesin 100 MG/5 ML Soln 5 ML UD Cup PO PRN (03:13)
[2021-10-06] MEDS: Acetaminophen 325 MG Tab PO PRN ×2 (03:13→20:43)
[2021-10-06] MEDS: hydrALAZINE 25 MG Tab PO SCH ×3 (05:18→21:47)
[2021-10-06] MEDS: Levothyroxine 75 MCG Tab PO SCH (05:18)
[2021-10-06] MEDS: Levothyroxine 100 MCG Tab PO SCH (05:24)
[2021-10-06] MEDS: Morphine 30 MG Tab.ER PO SCH ×3 (05:25→21:47)
[2021-10-06] MEDS: metFORMIN 500 MG Tab PO SCH ×2 (09:48→18:20)
[2021-10-06] MEDS: Enoxaparin 40 MG/0.4 ML Syringe SUBCUT SCH (09:48)
[2021-10-06] MEDS: Saccharomyces Boulardii (Probiotic) 250 MG Cap PO SCH (09:49)
[2021-10-06] MEDS: DULoxetine 30 MG Cap PO SCH (09:49)
[2021-10-06] MEDS: Insulin Lispro 100 Units/ML 3 ML Vial SUBCUT SCH ×4 (09:49→20:53)
[2021-10-06] MEDS: Acyclovir 200 MG Cap PO SCH ×3 (09:54→20:44)
[2021-10-06] MEDS: oxyCODONE 5 MG Tab PO PRN (11:45)
[2021-10-07] MEDS: Levothyroxine 75 MCG Tab PO SCH (05:47)
[2021-10-07] MEDS: Levothyroxine 100 MCG Tab PO SCH (05:47)
[2021-10-07] MEDS: hydrALAZINE 25 MG Tab PO SCH ×3 (05:47→22:38)
[2021-10-07] MEDS: Morphine 30 MG Tab.ER PO SCH ×3 (05:47→22:38)
[2021-10-07] MEDS: Saccharomyces Boulardii (Probiotic) 250 MG Cap PO SCH (09:04)
[2021-10-07] MEDS: metFORMIN 500 MG Tab PO SCH ×2 (09:05→17:18)
[2021-10-07] MEDS: Acyclovir 200 MG Cap PO SCH ×3 (09:06→22:37)
[2021-10-07] MEDS: Insulin Lispro 100 Units/ML 3 ML Vial SUBCUT SCH ×4 (09:06→22:40)
[2021-10-07] MEDS: DULoxetine 30 MG Cap PO SCH (09:06)
[2021-10-07] MEDS: Enoxaparin 40 MG/0.4 ML Syringe SUBCUT SCH (09:07)
[2021-10-07] MEDS: Acetaminophen 325 MG Tab PO PRN (19:42)
[2021-10-07] MEDS: oxyCODONE 5 MG Tab PO PRN (19:44)
[2021-10-08] MEDS: hydrALAZINE 25 MG Tab PO SCH ×3 (06:03→22:08)
[2021-10-08] MEDS: Morphine 30 MG Tab.ER PO SCH ×3 (06:06→22:09)
[2021-10-08] MEDS: Levothyroxine 75 MCG Tab PO SCH (06:06)
[2021-10-08] MEDS: Levothyroxine 100 MCG Tab PO SCH (06:06)
[2021-10-08] MEDS: Insulin Lispro 100 Units/ML 3 ML Vial SUBCUT SCH ×4 (08:31→22:11)
[2021-10-08] MEDS: metFORMIN 500 MG Tab PO SCH ×2 (08:31→17:26)
[2021-10-08] MEDS: Saccharomyces Boulardii (Probiotic) 250 MG Cap PO SCH (08:32)
[2021-10-08] MEDS: Enoxaparin 40 MG/0.4 ML Syringe SUBCUT SCH (08:33)
[2021-10-08] MEDS: Acyclovir 200 MG Cap PO SCH ×3 (08:33→22:09)
[2021-10-08] MEDS: DULoxetine 30 MG Cap PO SCH (08:34)
[2021-10-09] MEDS: Acetaminophen 325 MG Tab PO PRN ×2 (02:55→08:34)
[2021-10-09] MEDS: hydrALAZINE 25 MG Tab PO SCH ×3 (06:22→22:07)
[2021-10-09] MEDS: Levothyroxine 75 MCG Tab PO SCH (06:22)
[2021-10-09] MEDS: Levothyroxine 100 MCG Tab PO SCH (06:22)
[2021-10-09] MEDS: Morphine 30 MG Tab.ER PO SCH ×3 (06:23→22:05)
[2021-10-09] MEDS: Insulin Lispro 100 Units/ML 3 ML Vial SUBCUT SCH ×2 (07:56→12:53)
[2021-10-09] MEDS: Saccharomyces Boulardii (Probiotic) 250 MG Cap PO SCH (08:35)
[2021-10-09] MEDS: metFORMIN 500 MG Tab PO SCH ×2 (08:36→17:15)
[2021-10-09] MEDS: Acyclovir 200 MG Cap PO SCH ×3 (08:37→20:41)
[2021-10-09] MEDS: Enoxaparin 40 MG/0.4 ML Syringe SUBCUT SCH (08:39)
[2021-10-09] MEDS: DULoxetine 30 MG Cap PO SCH (08:39)
[2021-10-09] MEDS: Docusate Sodium 100 MG Cap PO PRN ×2 (13:58→20:41)
[2021-10-10] MEDS: Levothyroxine 75 MCG Tab PO SCH (05:52)
[2021-10-10] MEDS: Levothyroxine 100 MCG Tab PO SCH (05:52)
[2021-10-10] MEDS: Morphine 30 MG Tab.ER PO SCH ×3 (05:52→21:04)
[2021-10-10] MEDS: hydrALAZINE 25 MG Tab PO SCH ×3 (05:56→21:06)
[2021-10-10] MEDS: metFORMIN 500 MG Tab PO SCH ×2 (08:16→17:48)
[2021-10-10] MEDS: DULoxetine 30 MG Cap PO SCH (08:16)
[2021-10-10] MEDS: Bisacodyl 5 MG Tab PO PRN (08:17)
[2021-10-10] MEDS: Docusate Sodium 100 MG Cap PO PRN ×2 (08:17→21:05)
[2021-10-10] MEDS: Acyclovir 200 MG Cap PO SCH ×3 (08:18→21:05)
[2021-10-10] MEDS: Saccharomyces Boulardii (Probiotic) 250 MG Cap PO SCH (08:19)
[2021-10-10] MEDS: Enoxaparin 40 MG/0.4 ML Syringe SUBCUT SCH (08:19)
[2021-10-10] MEDS: Polyethylene Glycol 3350 Powder 17 GM Packet PO SCH (08:25)
[2021-10-11] MEDS: Levothyroxine 75 MCG Tab PO SCH (06:05)
[2021-10-11] MEDS: Levothyroxine 100 MCG Tab PO SCH (06:05)
[2021-10-11] MEDS: Morphine 30 MG Tab.ER PO SCH ×3 (06:05→21:27)
[2021-10-11] MEDS: hydrALAZINE 25 MG Tab PO SCH ×3 (06:12→21:27)
[2021-10-11] MEDS: metFORMIN 500 MG Tab PO SCH ×2 (09:52→18:32)
[2021-10-11] MEDS: Enoxaparin 40 MG/0.4 ML Syringe SUBCUT SCH (09:52)
[2021-10-11] MEDS: Saccharomyces Boulardii (Probiotic) 250 MG Cap PO SCH (09:52)
[2021-10-11] MEDS: DULoxetine 30 MG Cap PO SCH (09:52)
[2021-10-11] MEDS: Polyethylene Glycol 3350 Powder 17 GM Packet PO SCH (09:53)
[2021-10-12] MEDS: Levothyroxine 100 MCG Tab PO SCH (05:59)
[2021-10-12] MEDS: Levothyroxine 75 MCG Tab PO SCH (05:59)
[2021-10-12] MEDS: Morphine 30 MG Tab.ER PO SCH ×3 (05:59→21:16)
[2021-10-12] MEDS: hydrALAZINE 25 MG Tab PO SCH ×3 (06:03→21:16)
[2021-10-12] MEDS: Enoxaparin 40 MG/0.4 ML Syringe SUBCUT SCH (08:16)
[2021-10-12] MEDS: DULoxetine 30 MG Cap PO SCH (08:16)
[2021-10-12] MEDS: Saccharomyces Boulardii (Probiotic) 250 MG Cap PO SCH (08:16)
[2021-10-12] MEDS: metFORMIN 500 MG Tab PO SCH ×2 (08:16→17:16)
[2021-10-12] MEDS: Polyethylene Glycol 3350 Powder 17 GM Packet PO SCH (08:19)
[2021-10-13] MEDS: Morphine 30 MG Tab.ER PO SCH ×3 (05:55→22:04)
[2021-10-13] MEDS: hydrALAZINE 25 MG Tab PO SCH ×3 (05:55→22:04)
[2021-10-13] MEDS: Levothyroxine 75 MCG Tab PO SCH (05:56)
[2021-10-13] MEDS: Levothyroxine 100 MCG Tab PO SCH ×2 (05:56→06:09)
[2021-10-13] MEDS: metFORMIN 500 MG Tab PO SCH ×2 (07:57→17:22)
[2021-10-13] MEDS: Polyethylene Glycol 3350 Powder 17 GM Packet PO SCH (08:00)
[2021-10-13] MEDS: Saccharomyces Boulardii (Probiotic) 250 MG Cap PO SCH (08:00)
[2021-10-13] MEDS: DULoxetine 30 MG Cap PO SCH ×2 (08:00→17:22)
[2021-10-13] MEDS: Enoxaparin 40 MG/0.4 ML Syringe SUBCUT SCH (08:01)
[2021-10-14] MEDS: Acetaminophen 325 MG Tab PO PRN (01:14)
[2021-10-14] MEDS: Morphine 30 MG Tab.ER PO SCH ×3 (06:09→21:38)
[2021-10-14] MEDS: hydrALAZINE 25 MG Tab PO SCH ×3 (06:09→21:38)
[2021-10-14] MEDS: Levothyroxine 75 MCG Tab PO SCH (06:09)
[2021-10-14] MEDS: Saccharomyces Boulardii (Probiotic) 250 MG Cap PO SCH (08:04)
[2021-10-14] MEDS: Enoxaparin 40 MG/0.4 ML Syringe SUBCUT SCH (08:04)
[2021-10-14] MEDS: metFORMIN 500 MG Tab PO SCH ×2 (08:04→17:23)
[2021-10-14] MEDS: DULoxetine 30 MG Cap PO SCH ×2 (08:04→16:31)
[2021-10-14] MEDS: Polyethylene Glycol 3350 Powder 17 GM Packet PO SCH (08:05)
[2021-10-15] MEDS: hydrALAZINE 25 MG Tab PO SCH ×3 (05:09→21:21)
[2021-10-15] MEDS: Morphine 30 MG Tab.ER PO SCH ×3 (05:09→21:20)
[2021-10-15] MEDS: Levothyroxine 100 MCG Tab PO SCH (05:09)
[2021-10-15] MEDS: Acetaminophen 325 MG Tab PO PRN ×2 (06:17→22:55)
[2021-10-15] MEDS: Levothyroxine 75 MCG Tab PO SCH (06:48)
[2021-10-15] MEDS: DULoxetine 30 MG Cap PO SCH ×2 (08:03→17:07)
[2021-10-15] MEDS: metFORMIN 500 MG Tab PO SCH ×2 (08:03→17:07)
[2021-10-15] MEDS: Enoxaparin 40 MG/0.4 ML Syringe SUBCUT SCH (08:04)
[2021-10-15] MEDS: Saccharomyces Boulardii (Probiotic) 250 MG Cap PO SCH (08:04)
[2021-10-15] MEDS: Polyethylene Glycol 3350 Powder 17 GM Packet PO SCH (08:04)
[2021-10-16] MEDS: hydrALAZINE 25 MG Tab PO SCH ×3 (06:22→21:33)
[2021-10-16] MEDS: Levothyroxine 75 MCG Tab PO SCH (06:23)
[2021-10-16] MEDS: Morphine 30 MG Tab.ER PO SCH ×3 (06:23→21:33)
[2021-10-16] MEDS: Levothyroxine 100 MCG Tab PO SCH (06:23)
[2021-10-16] MEDS: metFORMIN 500 MG Tab PO SCH ×2 (08:43→17:45)
[2021-10-16] MEDS: Saccharomyces Boulardii (Probiotic) 250 MG Cap PO SCH (08:44)
[2021-10-16] MEDS: DULoxetine 30 MG Cap PO SCH ×2 (08:44→16:05)
[2021-10-16] MEDS: Polyethylene Glycol 3350 Powder 17 GM Packet PO SCH (08:45)
[2021-10-16] MEDS: Enoxaparin 40 MG/0.4 ML Syringe SUBCUT SCH (08:46)
[2021-10-16] MEDS: Doxycycline Monohydrate 100 MG Cap PO SCH ×2 (10:49→21:33)
[2021-10-17] MEDS: oxyCODONE 5 MG Tab PO PRN (00:52)
[2021-10-17] MEDS: Acetaminophen 325 MG Tab PO PRN (04:32)
[2021-10-17] MEDS: Levothyroxine 75 MCG Tab PO SCH (05:18)
[2021-10-17] MEDS: hydrALAZINE 25 MG Tab PO SCH ×3 (05:18→21:36)
[2021-10-17] MEDS: Levothyroxine 100 MCG Tab PO SCH (05:18)
[2021-10-17] MEDS: Morphine 30 MG Tab.ER PO SCH ×3 (05:19→21:34)
[2021-10-17] MEDS: metFORMIN 500 MG Tab PO SCH ×2 (08:59→18:16)
[2021-10-17] MEDS: Enoxaparin 40 MG/0.4 ML Syringe SUBCUT SCH (09:00)
[2021-10-17] MEDS: DULoxetine 30 MG Cap PO SCH ×2 (09:00→21:36)
[2021-10-17] MEDS: Saccharomyces Boulardii (Probiotic) 250 MG Cap PO SCH (09:00)
[2021-10-17] MEDS: Doxycycline Monohydrate 100 MG Cap PO SCH ×2 (09:00→21:34)
[2021-10-17] MEDS: Polyethylene Glycol 3350 Powder 17 GM Packet PO SCH (09:01)
[2021-10-17] MEDS ORDERED: Gabapentin 100 MG Cap PO SCH (21:00)
[2021-10-18] MEDS: oxyCODONE 5 MG Tab PO PRN (03:01)
[2021-10-18] MEDS: Acetaminophen 325 MG Tab PO PRN (05:17)
[2021-10-18] MEDS: Morphine 30 MG Tab.ER PO SCH ×3 (05:18→22:18)
[2021-10-18] MEDS: Levothyroxine 100 MCG Tab PO SCH (05:18)
[2021-10-18] MEDS: Levothyroxine 75 MCG Tab PO SCH (05:18)
[2021-10-18] MEDS: hydrALAZINE 25 MG Tab PO SCH ×3 (05:18→22:18)
[2021-10-18] MEDS: metFORMIN 500 MG Tab PO SCH ×2 (09:27→18:14)
[2021-10-18] MEDS: DULoxetine 30 MG Cap PO SCH ×2 (09:27→22:18)
[2021-10-18] MEDS: Doxycycline Monohydrate 100 MG Cap PO SCH ×2 (09:27→22:19)
[2021-10-18] MEDS: Saccharomyces Boulardii (Probiotic) 250 MG Cap PO SCH (09:28)
[2021-10-18] MEDS: Enoxaparin 40 MG/0.4 ML Syringe SUBCUT SCH (09:28)
[2021-10-18] MEDS: Polyethylene Glycol 3350 Powder 17 GM Packet PO SCH (09:29)
[2021-10-19] MEDS: Acetaminophen 325 MG Tab PO PRN (04:36)
[2021-10-19] MEDS: hydrALAZINE 25 MG Tab PO SCH ×3 (05:00→21:15)
[2021-10-19] MEDS: Levothyroxine 75 MCG Tab PO SCH (05:00)
[2021-10-19] MEDS: Levothyroxine 100 MCG Tab PO SCH (05:00)
[2021-10-19] MEDS: Morphine 30 MG Tab.ER PO SCH ×3 (05:01→21:16)
[2021-10-19] MEDS: metFORMIN 500 MG Tab PO SCH ×2 (09:46→17:34)
[2021-10-19] MEDS: DULoxetine 30 MG Cap PO SCH ×2 (09:47→21:16)
[2021-10-19] MEDS: Saccharomyces Boulardii (Probiotic) 250 MG Cap PO SCH (09:48)
[2021-10-19] MEDS: Doxycycline Monohydrate 100 MG Cap PO SCH ×2 (09:48→21:15)
[2021-10-19] MEDS: Enoxaparin 40 MG/0.4 ML Syringe SUBCUT SCH (09:48)
[2021-10-19] MEDS: Polyethylene Glycol 3350 Powder 17 GM Packet PO SCH (09:49)
[2021-10-19] MEDS: Bacitracin/Neomycin/Polymyxin B Oint 28.4 GM Tube TOP PRN (11:45)
[2021-10-19] MEDS: oxyCODONE 5 MG Tab PO PRN (19:40)
[2021-10-20] MEDS: Acetaminophen 325 MG Tab PO PRN (01:02)
[2021-10-20] MEDS: Morphine 30 MG Tab.ER PO SCH ×3 (05:08→22:04)
[2021-10-20] MEDS: Levothyroxine 100 MCG Tab PO SCH (05:08)
[2021-10-20] MEDS: Levothyroxine 75 MCG Tab PO SCH (05:08)
[2021-10-20] MEDS: hydrALAZINE 25 MG Tab PO SCH ×3 (05:10→22:03)
[2021-10-20] MEDS: metFORMIN 500 MG Tab PO SCH ×2 (09:08→17:22)
[2021-10-20] MEDS: DULoxetine 30 MG Cap PO SCH ×2 (09:09→22:03)
[2021-10-20] MEDS: Enoxaparin 40 MG/0.4 ML Syringe SUBCUT SCH (09:09)
[2021-10-20] MEDS: Doxycycline Monohydrate 100 MG Cap PO SCH ×2 (09:09→22:03)
[2021-10-20] MEDS: Polyethylene Glycol 3350 Powder 17 GM Packet PO SCH (09:10)
[2021-10-20] MEDS: Saccharomyces Boulardii (Probiotic) 250 MG Cap PO SCH (10:39)
[2021-10-21] MEDS: hydrALAZINE 25 MG Tab PO SCH ×3 (05:38→21:00)
[2021-10-21] MEDS: Levothyroxine 75 MCG Tab PO SCH (05:38)
[2021-10-21] MEDS: Levothyroxine 100 MCG Tab PO SCH (05:38)
[2021-10-21] MEDS: Morphine 30 MG Tab.ER PO SCH ×3 (05:39→21:01)
[2021-10-21] MEDS: DULoxetine 30 MG Cap PO SCH ×2 (08:23→20:37)
[2021-10-21] MEDS: metFORMIN 500 MG Tab PO SCH ×2 (08:23→17:07)
[2021-10-21] MEDS: Enoxaparin 40 MG/0.4 ML Syringe SUBCUT SCH (08:24)
[2021-10-21] MEDS: Polyethylene Glycol 3350 Powder 17 GM Packet PO SCH (08:24)
[2021-10-21] MEDS: Saccharomyces Boulardii (Probiotic) 250 MG Cap PO SCH (08:24)
[2021-10-21] MEDS: Bacitracin/Neomycin/Polymyxin B Oint 28.4 GM Tube TOP PRN (10:15)
[2021-10-22] MEDS: Levothyroxine 100 MCG Tab PO SCH (05:57)
[2021-10-22] MEDS: Morphine 30 MG Tab.ER PO SCH ×3 (05:58→21:35)
[2021-10-22] MEDS: Levothyroxine 75 MCG Tab PO SCH (05:58)
[2021-10-22] MEDS: hydrALAZINE 25 MG Tab PO SCH ×3 (05:58→21:36)
[2021-10-22] MEDS: Saccharomyces Boulardii (Probiotic) 250 MG Cap PO SCH (08:18)
[2021-10-22] MEDS: DULoxetine 30 MG Cap PO SCH ×2 (08:18→21:35)
[2021-10-22] MEDS: metFORMIN 500 MG Tab PO SCH ×2 (08:19→17:27)
[2021-10-22] MEDS: Polyethylene Glycol 3350 Powder 17 GM Packet PO SCH (08:20)
[2021-10-22] MEDS: Enoxaparin 40 MG/0.4 ML Syringe SUBCUT SCH (08:20)
[2021-10-23] MEDS: Acetaminophen 325 MG Tab PO PRN ×2 (02:08→18:21)
[2021-10-23] MEDS: Levothyroxine 100 MCG Tab PO SCH (06:00)
[2021-10-23] MEDS: Morphine 30 MG Tab.ER PO SCH ×3 (06:01→23:30)
[2021-10-23] MEDS: Levothyroxine 75 MCG Tab PO SCH (06:01)
[2021-10-23] MEDS: hydrALAZINE 25 MG Tab PO SCH ×3 (06:04→23:31)
[2021-10-23] MEDS: Polyethylene Glycol 3350 Powder 17 GM Packet PO SCH (09:02)
[2021-10-23] MEDS: metFORMIN 500 MG Tab PO SCH ×2 (09:02→18:22)
[2021-10-23] MEDS: DULoxetine 30 MG Cap PO SCH ×2 (09:03→20:46)
[2021-10-23] MEDS: Enoxaparin 40 MG/0.4 ML Syringe SUBCUT SCH (09:04)
[2021-10-23] MEDS: Saccharomyces Boulardii (Probiotic) 250 MG Cap PO SCH (09:04)
[2021-10-24] MEDS: hydrALAZINE 25 MG Tab PO SCH ×3 (06:52→21:36)
[2021-10-24] MEDS: Levothyroxine 100 MCG Tab PO SCH (06:53)
[2021-10-24] MEDS: Levothyroxine 75 MCG Tab PO SCH (06:53)
[2021-10-24] MEDS: Morphine 30 MG Tab.ER PO SCH ×3 (06:53→21:34)
[2021-10-24] MEDS: DULoxetine 30 MG Cap PO SCH ×2 (09:33→21:33)
[2021-10-24] MEDS: Saccharomyces Boulardii (Probiotic) 250 MG Cap PO SCH (09:33)
[2021-10-24] MEDS: Enoxaparin 40 MG/0.4 ML Syringe SUBCUT SCH (09:33)
[2021-10-24] MEDS: metFORMIN 500 MG Tab PO SCH ×2 (09:33→17:34)
[2021-10-24] MEDS: Polyethylene Glycol 3350 Powder 17 GM Packet PO SCH (09:34)
[2021-10-25] MEDS: Acetaminophen 325 MG Tab PO PRN (01:37)
[2021-10-25] MEDS: hydrALAZINE 25 MG Tab PO SCH ×3 (06:12→22:02)
[2021-10-25] MEDS: Levothyroxine 75 MCG Tab PO SCH (06:13)
[2021-10-25] MEDS: Levothyroxine 100 MCG Tab PO SCH (06:14)
[2021-10-25] MEDS: Morphine 30 MG Tab.ER PO SCH ×3 (06:14→22:01)
[2021-10-25] MEDS: metFORMIN 500 MG Tab PO SCH ×2 (08:13→17:23)
[2021-10-25] MEDS: DULoxetine 30 MG Cap PO SCH ×2 (08:13→22:00)
[2021-10-25] MEDS: Enoxaparin 40 MG/0.4 ML Syringe SUBCUT SCH (08:14)
[2021-10-25] MEDS: Polyethylene Glycol 3350 Powder 17 GM Packet PO SCH (08:14)
[2021-10-25] MEDS: Saccharomyces Boulardii (Probiotic) 250 MG Cap PO SCH (08:14)
[2021-10-26] MEDS: hydrALAZINE 25 MG Tab PO SCH ×3 (05:51→21:03)
[2021-10-26] MEDS: Levothyroxine 100 MCG Tab PO SCH (05:51)
[2021-10-26] MEDS: Morphine 30 MG Tab.ER PO SCH ×3 (05:52→21:03)
[2021-10-26] MEDS: Levothyroxine 75 MCG Tab PO SCH (05:52)
[2021-10-26] MEDS: DULoxetine 30 MG Cap PO SCH ×2 (09:15→21:03)
[2021-10-26] MEDS: metFORMIN 500 MG Tab PO SCH ×2 (09:16→17:20)
[2021-10-26] MEDS: Polyethylene Glycol 3350 Powder 17 GM Packet PO SCH (09:16)
[2021-10-26] MEDS: Enoxaparin 40 MG/0.4 ML Syringe SUBCUT SCH (09:16)
[2021-10-26] MEDS: Saccharomyces Boulardii (Probiotic) 250 MG Cap PO SCH (10:46)
[2021-10-27] MEDS: Levothyroxine 75 MCG Tab PO SCH (05:59)
[2021-10-27] MEDS: hydrALAZINE 25 MG Tab PO SCH ×3 (05:59→22:38)
[2021-10-27] MEDS: Levothyroxine 100 MCG Tab PO SCH (05:59)
[2021-10-27] MEDS: Morphine 30 MG Tab.ER PO SCH ×3 (05:59→22:40)
[2021-10-27] MEDS: DULoxetine 30 MG Cap PO SCH ×2 (08:46→22:38)
[2021-10-27] MEDS: Saccharomyces Boulardii (Probiotic) 250 MG Cap PO SCH (08:46)
[2021-10-27] MEDS: metFORMIN 500 MG Tab PO SCH ×2 (08:46→17:33)
[2021-10-27] MEDS: Enoxaparin 40 MG/0.4 ML Syringe SUBCUT SCH (08:46)
[2021-10-27] MEDS: Polyethylene Glycol 3350 Powder 17 GM Packet PO SCH (08:47)
[2021-10-28] MEDS: Levothyroxine 75 MCG Tab PO SCH (06:41)
[2021-10-28] MEDS: hydrALAZINE 25 MG Tab PO SCH ×3 (06:41→21:27)
[2021-10-28] MEDS: Morphine 30 MG Tab.ER PO SCH ×3 (06:42→21:26)
[2021-10-28] MEDS: Levothyroxine 100 MCG Tab PO SCH (06:42)
[2021-10-28] MEDS: metFORMIN 500 MG Tab PO SCH ×2 (09:00→17:24)
[2021-10-28] MEDS: DULoxetine 30 MG Cap PO SCH ×2 (09:01→21:26)
[2021-10-28] MEDS: Saccharomyces Boulardii (Probiotic) 250 MG Cap PO SCH (09:01)
[2021-10-28] MEDS: Enoxaparin 40 MG/0.4 ML Syringe SUBCUT SCH (09:01)
[2021-10-28] MEDS: Polyethylene Glycol 3350 Powder 17 GM Packet PO SCH (14:18)
[2021-10-29] MEDS: Levothyroxine 100 MCG Tab PO SCH (06:14)
[2021-10-29] MEDS: Morphine 30 MG Tab.ER PO SCH ×3 (06:14→21:44)
[2021-10-29] MEDS: hydrALAZINE 25 MG Tab PO SCH ×3 (06:14→21:44)
[2021-10-29] MEDS: Levothyroxine 75 MCG Tab PO SCH (06:14)
[2021-10-29] MEDS: metFORMIN 500 MG Tab PO SCH ×2 (09:14→17:28)
[2021-10-29] MEDS: Saccharomyces Boulardii (Probiotic) 250 MG Cap PO SCH (09:15)
[2021-10-29] MEDS: Enoxaparin 40 MG/0.4 ML Syringe SUBCUT SCH (09:16)
[2021-10-29] MEDS: DULoxetine 30 MG Cap PO SCH ×2 (09:16→21:44)
[2021-10-29] MEDS: Polyethylene Glycol 3350 Powder 17 GM Packet PO SCH (09:30)
[2021-10-30] MEDS: Levothyroxine 100 MCG Tab PO SCH (05:29)
[2021-10-30] MEDS: hydrALAZINE 25 MG Tab PO SCH ×3 (05:29→21:12)
[2021-10-30] MEDS: Morphine 30 MG Tab.ER PO SCH ×3 (05:29→21:12)
[2021-10-30] MEDS: Levothyroxine 75 MCG Tab PO SCH (05:29)
[2021-10-30] MEDS: Saccharomyces Boulardii (Probiotic) 250 MG Cap PO SCH (09:56)
[2021-10-30] MEDS: DULoxetine 30 MG Cap PO SCH ×2 (09:56→21:12)
[2021-10-30] MEDS: Enoxaparin 40 MG/0.4 ML Syringe SUBCUT SCH (09:59)
[2021-10-30] MEDS: Polyethylene Glycol 3350 Powder 17 GM Packet PO SCH (09:59)
[2021-10-30] MEDS: metFORMIN 500 MG Tab PO SCH ×2 (10:03→18:31)
[2021-10-31] MEDS: hydrALAZINE 25 MG Tab PO SCH ×3 (05:06→21:49)
[2021-10-31] MEDS: Levothyroxine 100 MCG Tab PO SCH (05:07)
[2021-10-31] MEDS: Levothyroxine 75 MCG Tab PO SCH (05:07)
[2021-10-31] MEDS: Morphine 30 MG Tab.ER PO SCH ×3 (05:11→14:54)
[2021-10-31] MEDS: metFORMIN 500 MG Tab PO SCH ×2 (09:01→18:31)
[2021-10-31] MEDS: Saccharomyces Boulardii (Probiotic) 250 MG Cap PO SCH (09:02)
[2021-10-31] MEDS: DULoxetine 30 MG Cap PO SCH ×2 (09:02→21:48)
[2021-10-31] MEDS: Enoxaparin 40 MG/0.4 ML Syringe SUBCUT SCH (09:02)
[2021-10-31] MEDS: Polyethylene Glycol 3350 Powder 17 GM Packet PO SCH (09:03)
[2021-11-01] MEDS: Morphine 30 MG Tab.ER PO SCH ×4 (01:06→21:28)
[2021-11-01] MEDS: Acetaminophen 325 MG Tab PO PRN ×2 (03:17→15:53)
[2021-11-01] MEDS: Ondansetron 4 MG Tab.DIS PO PRN (03:18)
[2021-11-01] MEDS: Levothyroxine 100 MCG Tab PO SCH (05:57)
[2021-11-01] MEDS: Levothyroxine 75 MCG Tab PO SCH (05:57)
[2021-11-01] MEDS: hydrALAZINE 25 MG Tab PO SCH ×3 (06:00→21:27)
[2021-11-01] MEDS: metFORMIN 500 MG Tab PO SCH ×2 (09:00→18:03)
[2021-11-01] MEDS: DULoxetine 30 MG Cap PO SCH ×2 (09:00→21:27)
[2021-11-01] MEDS: Polyethylene Glycol 3350 Powder 17 GM Packet PO SCH (09:00)
[2021-11-01] MEDS: Saccharomyces Boulardii (Probiotic) 250 MG Cap PO SCH (09:00)
[2021-11-01] MEDS: Enoxaparin 40 MG/0.4 ML Syringe SUBCUT SCH (09:00)
[2021-11-01] MEDS: oxyCODONE 5 MG Tab PO PRN (11:45)
[2021-11-02] MEDS: hydrALAZINE 25 MG Tab PO SCH ×3 (05:11→21:48)
[2021-11-02] MEDS: Morphine 30 MG Tab.ER PO SCH ×3 (05:12→21:48)
[2021-11-02] MEDS: Levothyroxine 75 MCG Tab PO SCH (05:12)
[2021-11-02] MEDS: Levothyroxine 100 MCG Tab PO SCH (05:12)
[2021-11-02] MEDS: metFORMIN 500 MG Tab PO SCH ×2 (10:04→17:57)
[2021-11-02] MEDS: Polyethylene Glycol 3350 Powder 17 GM Packet PO SCH (10:04)
[2021-11-02] MEDS: DULoxetine 30 MG Cap PO SCH ×2 (10:04→21:48)
[2021-11-02] MEDS: Saccharomyces Boulardii (Probiotic) 250 MG Cap PO SCH (10:04)
[2021-11-02] MEDS: Enoxaparin 40 MG/0.4 ML Syringe SUBCUT SCH (10:05)
[2021-11-02] MEDS: oxyCODONE 5 MG Tab PO PRN (17:57)
[2021-11-02] MEDS ORDERED: Menthol 10%/Methyl Salicylate 30% 85 GM Tube TOP PRN (20:21)
[2021-11-03] MEDS: hydrALAZINE 25 MG Tab PO SCH ×3 (06:30→21:19)
[2021-11-03] MEDS: Levothyroxine 100 MCG Tab PO SCH (06:30)
[2021-11-03] MEDS: Levothyroxine 75 MCG Tab PO SCH (06:30)
[2021-11-03] MEDS: Morphine 30 MG Tab.ER PO SCH ×3 (06:30→21:18)
[2021-11-03] MEDS: metFORMIN 500 MG Tab PO SCH ×2 (09:13→17:25)
[2021-11-03] MEDS: Enoxaparin 40 MG/0.4 ML Syringe SUBCUT SCH (09:14)
[2021-11-03] MEDS: Polyethylene Glycol 3350 Powder 17 GM Packet PO SCH (09:14)
[2021-11-03] MEDS: Saccharomyces Boulardii (Probiotic) 250 MG Cap PO SCH (09:14)
[2021-11-03] MEDS: DULoxetine 30 MG Cap PO SCH ×2 (09:14→21:18)
[2021-11-04] MEDS: Morphine 30 MG Tab.ER PO SCH ×5 (06:01→22:04)
[2021-11-04] MEDS: hydrALAZINE 25 MG Tab PO SCH ×3 (06:01→21:20)
[2021-11-04] MEDS: Levothyroxine 75 MCG Tab PO SCH (06:03)
[2021-11-04] MEDS: Levothyroxine 100 MCG Tab PO SCH (06:03)
[2021-11-04] MEDS: metFORMIN 500 MG Tab PO SCH ×2 (08:11→18:08)
[2021-11-04] MEDS: DULoxetine 30 MG Cap PO SCH ×2 (08:12→21:20)
[2021-11-04] MEDS: Docusate Sodium 100 MG Cap PO PRN (08:12)
[2021-11-04] MEDS: Enoxaparin 40 MG/0.4 ML Syringe SUBCUT SCH (08:12)
[2021-11-04] MEDS: Polyethylene Glycol 3350 Powder 17 GM Packet PO SCH (08:12)
[2021-11-04] MEDS: Saccharomyces Boulardii (Probiotic) 250 MG Cap PO SCH (08:12)
[2021-11-04] MEDS: oxyCODONE 5 MG Tab PO PRN ×2 (08:13→20:02)
[2021-11-04] MEDS: Acetaminophen 325 MG Tab PO PRN (22:47)
[2021-11-05] MEDS: Levothyroxine 75 MCG Tab PO SCH (05:47)
[2021-11-05] MEDS: Morphine 30 MG Tab.ER PO SCH (05:47)
[2021-11-05] MEDS: hydrALAZINE 25 MG Tab PO SCH (05:47)
[2021-11-05] MEDS: Acetaminophen 325 MG Tab PO PRN (05:48)
[2021-11-05] MEDS: Levothyroxine 100 MCG Tab PO SCH (05:48)
[2021-11-05 08:04] VITALS: BP 136/56; PULSE 94
[2021-11-05] MEDS: metFORMIN 500 MG Tab PO SCH (08:17)
[2021-11-05] MEDS: DULoxetine 30 MG Cap PO SCH (08:17)
[2021-11-05] MEDS: Saccharomyces Boulardii (Probiotic) 250 MG Cap PO SCH (08:18)
[2021-11-05] MEDS: Enoxaparin 40 MG/0.4 ML Syringe SUBCUT SCH (08:19)
[2021-11-05] MEDS: Polyethylene Glycol 3350 Powder 17 GM Packet PO SCH (08:20)
== END 2021-11-05 10:00 | DRG 947 ==
LOC: DL.MS 13:22 → UNDOADMIN 13:22 → DL.MS 13:32
PROVIDERS: ADMIT Internal Medicine; ATTEND Internal Medicine
PROC: 8E0ZXY6 Isolation (ICD-10-PCS; principal; 2021-10-02)
DX: R53.1 Weakness (principal); U07.1 COVID-19; R45.851 Suicidal ideations; F32.A Depression, unspecified; G89.29 Other chronic pain; M54.9 Dorsalgia, unspecified; I25.10 Atherosclerotic heart disease of native coronary artery without angina pectoris; I10 Essential (primary) hypertension; E78.5 Hyperlipidemia, unspecified; R31.9 Hematuria, unspecified; Z66 Do not resuscitate; M19.90 Unspecified osteoarthritis, unspecified site; H91.90 Unspecified hearing loss, unspecified ear; H54.7 Unspecified visual loss; K52.9 Noninfective gastroenteritis and colitis, unspecified; R32 Unspecified urinary incontinence; H35.30 Unspecified macular degeneration; E11.40 Type 2 diabetes mellitus with diabetic neuropathy, unspecified; E03.9 Hypothyroidism, unspecified; Z96.649 Presence of unspecified artificial hip joint; K59.00 Constipation, unspecified; L98.9 Disorder of the skin and subcutaneous tissue, unspecified; B02.9 Zoster without complications; R07.81 Pleurodynia; Z91.040 Latex allergy status; Z91.010 Allergy to peanuts; Z91.19 Patient's noncompliance with other medical treatment and regimen; Z91.51 Personal history of suicidal behavior; Z79.890 Hormone replacement therapy; Z99.3 Dependence on wheelchair; Z79.899 Other long term (current) drug therapy; Z79.84 Long term (current) use of oral hypoglycemic drugs; Z88.2 Allergy status to sulfonamides; Z88.1 Allergy status to other antibiotic agents; Z88.5 Allergy status to narcotic agent; Z86.73 Personal history of transient ischemic attack (TIA), and cerebral infarction without residual deficits; Z86.19 Personal history of other infectious and parasitic diseases; Z98.49 Cataract extraction status, unspecified eye; Z86.59 Personal history of other mental and behavioral disorders; N89.8 Other specified noninflammatory disorders of vagina
CPT/HCPCS: 36415; 80048; 81001; 81003; 82947; 85025; 87070; 87077; 87086; 87088; 87186; 97110-GP; 97161-GP; 97164-GP; 97166-GO; 97168-GO; 97530-GO; 97530-GP; 99304; 99307; 99308; 99316; A9270-GY; J1650